=== PATIENT | male | born 1955 | race Caucasian/White ===

== ENCOUNTER 2018-03-05 15:30 | Observation (INO) ==
[2018-03-05] MEDS ORDERED: Naloxone 0.4 MG/ML INJ IVP PRN (19:36)
[2018-03-05] MEDS ORDERED: Ondansetron 4 MG/2 ML VIAL IVP PRN (19:36)
[2018-03-05] MEDS ORDERED: *HR* HYDROcodone/Acet 5/325 mg TABLET PO PRN (19:36)
[2018-03-05] MEDS ORDERED: Acetaminophen 325 MG TABLET PO PRN (19:36)
--- NOTE | 2018-03-05 20:40 | Internal Med History&Physical ---
Date of Encounter: 03/05/18 Time of Encounter: 23:00 Internal Medicine - H&P: HPI Chief complaint: Right flank pain History of present illness: Mr. Sparrow is a 62 year old male with past medical history of CLL and history of thyroid cancer who initially presented to [facility] after he awoke this morning around 10 AM with right lower back pain. Patient underwent CT imaging which found a 6 mm calculus in the right upper ureter causing moderate hydronephrosis. Patient did not have any evidence of fever, chills, hematuria upon presentation and was hemodynamically stable. At the time of presentation was pain described as a 2-3 out of 10. Patient is currently stable and continues to endorse right lower flank pain of 2-3 out of 10 in intensity that is nonradiating. Laboratory findings were significant for mild elevation in his creatinine and an elevated white blood cell count in the setting of CLL. Past Med Surg Social Fam HX - Past Medical History Medical history: hypertension, kidney stones Additional medical history: hypothyroidism Psychiatric history: no psych history - Past Surgical History Surgical History: thyroidectomy - Social History Smoking Status: Never smoker Smokeless Tobacco Status: No Alcohol use: none Drug use: none - Family History Mother Living Status: Age at : 88 Hx Family Cardiac Disorders: Yes (unknown etiology) Hx Family Neuromuscular Disorders: Yes (2 CVAs) Father Living Status: Age at : 90 Hx Family Cardiac Disorders: Yes (unknown etiology) Internal Medicine - H&P: Meds Levothyroxine [Levothyroxine Sodium] 137 mcg PO DAILY@0630 10/07/16 [History] Folic Acid 1 mg PO DAILY #90 tablet 04/01/17 [Rx] Aspirin/Acetaminophen/Caffeine [Excedrin Extra Strength Caplet] 2 tab PO Q12H PRN 03/06/18 [History] 3 Allergy/AdvReac Type Severity Reaction Status Date / Time No Known Allergies Allergy Verified 03/06/18 10:18 All Systems PM: A 10-system review of systems was performed and is negative for pertinent findings except as documented above in the HPI. - Constitutional Constitutional: no chills, no fever(s), no night sweats - Constitutional Exam: General: Alert and oriented Skin:Normal color, no rash, no lesions. HEENT:EOM, pupils equal, round and reactive. Cardiovascular:Normal S1 & S2, no rubs, murmurs or gallops. No JVD. Pulse regular. Lungs:Normal breath sounds, no wheezes or crackles. Abdomen:Soft, non-tender, no rigidity. Extremities:No deformity, no edema or tenderness, no joint swelling or clubbing. Neurological:Normal cognition and motor skills. Pulses:Carotid and radial pulses normal +2. Rest of the physical exam is non contributory Internal Med - H&P Results - Labs CBC & Chem 7: 03/07/18 05:24 03/07/18 05:24 - Assessment and plan (1) Nephrolithiasis Current Visit: Yes Status: Acute Assessment and plan: Nephrolithiasis with a 6 mm calculus in the upper right ureter with moderate hydronephrosis. Patient currently stable without any signs of infectious complication. Currently reporting only minimal pain. Will start patient on pain regimen as needed. IV fluid hydration. Low-dose amlodipine in the setting of mild hypertension which will hopefully aid in the stone passing. Monitor vitals for any emergent signs of infection. Strainer to be provided for patient for urination. Urology consult in the a.m. Consult has not been called however the order has been placed. (2) Leukocytosis Current Visit: Yes Status: Chronic Assessment and plan: Leukocytosis of 26.5 documented at [facility]. Likely secondary to underlying CML. We will monitor for signs of sepsis and check a.m. labs. Qualifiers: Leukocytosis type: unspecified Qualified Code(s): D72.829 - Elevated white blood cell count, unspecified (3) ZELALEM (acute kidney injury) Current Visit: Yes Status: Acute Assessment and plan: Acute kidney injury likely obstructive in the setting of nephrolithiasis with moderate hydronephrosis. We will begin patient on fluids and check a.m. chemistry. (4) Hypothyroidism (acquired) Current Visit: No Status: Chronic Assessment and plan: Hypothyroidism in the setting of history of thyroid cancer status post radioactive iodine ablation. Continue patient's home med of levothyroxine. (5) CLL (chronic lymphocytic leukemia) Current Visit: No Status: Chronic Assessment and plan: Patient being managed by oncology as outpatient. - Time Spent With Patient Total time spent is greater than 50% in coordination of care (as documented) at patient's floor/unit and/or counseling patient: - Constitutional Vitals: Temp Pulse Resp BP Pulse Ox 98.4 F 41 16 147/72 98 03/05/18 18:16 03/05/18 18:16 03/05/18 18:16 03/05/18 18:16 03/05/18 18:16 General: Alert and oriented Skin:Normal color, no rash, no lesions. HEENT:EOM, pupils equal, round and reactive. Cardiovascular:Normal S1 & S2, no rubs, murmurs or gallops. No JVD. Pulse regular. Lungs:Normal breath sounds, no wheezes or crackles. Abdomen:Soft, non-tender, no rigidity; No CVA tenderness Extremities:No deformity, no edema or tenderness, no joint swelling or clubbing. Neurological:Normal cognition and motor skills. Pulses:Carotid and radial pulses normal +2. Rest of the physical exam is non contributory
[2018-03-05] MEDS: amLODIPine 5 MG TABLET PO SCH (21:28)
[2018-03-05] MEDS: 0.9 % Sodium Chloride 1,000 ML IVC SCH (21:29)
[2018-03-05] MEDS: *HR* Heparin 5,000 UNIT/ML VIAL SQ SCH (21:29)
[2018-03-06 04:23] LABS: Mean Corpuscular Hemoglobin 32.7 pg (28.0-33.3); Mean Platelet Volume 11.9 fL (9.4-12.4)
[2018-03-06 04:24] LABS: Hematocrit 35.9 % (37.5-50.1); Mean Corpuscular HGB Conc 33.4 g/dL (31.6-35.5); Mean Corpuscular Volume 97.8 fL (83.0-100.0); Red Blood Count 3.67 M/mcL (4.19-5.50)
[2018-03-06 04:28] LABS: Platelet Count 79 K/mcL (140-400)
[2018-03-06 04:45] LABS: Albumin 3.5 g/dL (3.5-5.7); Albumin/Globulin Ratio 1.8 (1.1-2.2); Bilirubin,Total 0.6 mg/dL (0.3-1.0); Calcium 8.2 mg/dL (8.6-10.3); Globulin 1.9 g/dL (2.4-3.5); Potassium 4.2 mEq/L (3.5-5.1); Total Protein 5.4 g/dL (6.4-8.9)
[2018-03-06] MEDS: *HR* Heparin 5,000 UNIT/ML VIAL SQ SCH ×3 (06:07→21:19)
--- NOTE | 2018-03-06 07:38 | Urology - Consult Note ---
Date of Encounter: 03/06/18 Time of Encounter: 07:35 - Assessment and Plan (1) Ureteral stone with hydronephrosis Current Visit: Yes Status: Acute Assessment and plan: pt has a proximal ureteral stone. low likelihood chance to pass the stone. will proceed with attempt at a ureteroscopic stone extraction with holmium laser today. he understands the risk of the procedure including injury to urinary tract, perforation, stricture, infection, inability to reach the stone which would require a staged surgery. (2) ZELALEM (acute kidney injury) Current Visit: Yes Status: Acute Assessment and plan: should improve with management of the stone WBC is elevated but his baseline is in the 20s bc of leukemia. I do not believe pt is septic. Urology CN:HPI Consult date: 03/06/18 Reason for consult Urology: Hydronephrosis History of present illness: new pt to the urology service. 6 mm proximal ureteral stone with mild hydronephrosis. states pain is 3/4 out of 10. no N/V. no fever. distant hx of stones. pt has hx of leukemia. WBC chronically elevated. WBC 25,000 at outside ER. Cr 1.5 Past Med Surg Social Fam HX - Past Medical History Medical history: hypertension, kidney stones Additional medical history: hypothyroidism Psychiatric history: no psych history - Past Surgical History Surgical History: thyroidectomy - Social History Smoking Status: Never smoker Smokeless Tobacco Status: No Alcohol use: none Drug use: none - Family History Mother Living Status: Age at : 88 Hx Family Cardiac Disorders: Yes (unknown etiology) Hx Family Neuromuscular Disorders: Yes (2 CVAs) Father Living Status: Age at : 90 Hx Family Cardiac Disorders: Yes (unknown etiology) Medications and Allergies Aspirin/Acetaminophen/Caffeine [Excedrin Migraine Caplet] 1 tab PO Q12H PRN 07/02 [History] Levothyroxine [Levothyroxine Sodium] 137 mcg PO DAILY@0630 10/07/16 [History] Folic Acid 1 mg PO DAILY #90 tablet 04/01/17 [Rx] 3 Allergy/AdvReac Type Severity Reaction Status Date / Time No Known Allergies Allergy Verified 10/31/17 12:15 Review of Systems - Constitutional no chills, no fever(s) - EENT Nose, mouth and throat: no dizziness - Cardiovascular no chest pain - Respiratory no cough - Gastrointestinal abdominal pain, no nausea - Genitourinary flank pain - Musculoskeletal back pain - Integumentary no erythema - Neurological no confusion - Psychiatric no anxiety - Hematologic/Lymphatic no easy bleeding - Allergic/Immunologic no throat swelling Exam Initial Vital Signs Temp Pulse Resp BP Pulse Ox 98.2 F 45 16 135/65 98 03/05/18 18:06 03/05/18 18:06 03/05/18 18:06 03/05/18 18:06 03/05/18 18:06 - General physical appearance Present: well developed, no distress - Eyes Present: PERRL, conjunctiva is clear. Absent: icteric - ENT Present: normal nares - Neck Present: no masses - Respiratory Present: normal respiratory effort - Cardiovascular Cardiovascular exam IM: RRR - Abdomen Abdomen: Present: soft. Absent: masses, suprapubic tenderness - Integumentary Present: no rash, no growths - Neurologic Present: normal coordination. Absent: disoriented, confused - Additional Findings flat affect. no CVA tenderness Urology Results - Labs 03/06/18 03:58 03/06/18 03:58 Abnormal lab results WBC 35.2 K/mcL (4.3-11.1) H* 03/06/18 03:58 RBC 3.67 M/mcL (4.19-5.50) L 03/06/18 03:58 Hgb 12.0 g/dL (12.9-16.9) L 03/06/18 03:58 Hct 35.9 % (37.5-50.1) L 03/06/18 03:58 RDW 15.0 % (11.5-14.5) H 03/06/18 03:58 Plt Count 79 K/mcL (140-400) L 03/06/18 03:58 Chloride 112 mEq/L (98-107) H 03/06/18 03:58 Creatinine 1.69 mg/dL (0.70-1.30) H 03/06/18 03:58 Est GFR ( Amer) 50 (> 60) L 03/06/18 03:58 Est GFR (Non-Af Amer) 41 (> 60) L 03/06/18 03:58 Calcium 8.2 mg/dL (8.6-10.3) L 03/06/18 03:58 Serum Total Protein 5.4 g/dL (6.4-8.9) L 03/06/18 03:58 Globulin 1.9 g/dL (2.4-3.5) L 03/06/18 03:58 Diabetes panel 03/06/18 Range/Units 03:58 Sodium 140 (136-145) mEq/L Potassium 4.2 (3.5-5.1) mEq/L Chloride 112 H (98-107) mEq/L Carbon Dioxide 24 (23-29) mEq/L BUN 22 (8-23) mg/dL Creatinine 1.69 H (0.70-1.30) mg/dL Glucose 97 (70-105) mg/dL Calcium 8.2 L (8.6-10.3) mg/dL AST 23 (13-39) Units/L ALT 23 (7-52) Units/L Alkaline Phosphatase 69 (34-104) Units/L Albumin 3.5 (3.5-5.7) g/dL Calcium panel 03/06/18 Range/Units 03:58 Calcium 8.2 L (8.6-10.3) mg/dL Albumin 3.5 (3.5-5.7) g/dL Pituitary panel 03/06/18 Range/Units 03:58 Sodium 140 (136-145) mEq/L Potassium 4.2 (3.5-5.1) mEq/L Chloride 112 H (98-107) mEq/L Carbon Dioxide 24 (23-29) mEq/L BUN 22 (8-23) mg/dL Creatinine 1.69 H (0.70-1.30) mg/dL Glucose 97 (70-105) mg/dL Calcium 8.2 L (8.6-10.3) mg/dL Adrenal panel 03/06/18 Range/Units 03:58 Sodium 140 (136-145) mEq/L Potassium 4.2 (3.5-5.1) mEq/L Chloride 112 H (98-107) mEq/L Carbon Dioxide 24 (23-29) mEq/L BUN 22 (8-23) mg/dL Creatinine 1.69 H (0.70-1.30) mg/dL Glucose 97 (70-105) mg/dL Calcium 8.2 L (8.6-10.3) mg/dL Total Bilirubin 0.6 (0.3-1.0) mg/dL AST 23 (13-39) Units/L ALT 23 (7-52) Units/L Alkaline Phosphatase 69 (34-104) Units/L Albumin 3.5 (3.5-5.7) g/dL All other labs normal. Consult Discharge Plan - Plan Referrals: Kalen Hart DO [Primary Care Provider] -
[2018-03-06] MEDS: amLODIPine 5 MG TABLET PO SCH (07:41)
[2018-03-06] MEDS: 0.9 % Sodium Chloride 1,000 ML IVC SCH (07:42)
[2018-03-06] MEDS ORDERED: Folic Acid 1 MG TABLET PO SCH (09:00)
--- NOTE | 2018-03-06 12:41 | Event Note ---
Date of Encounter: 03/06/18 Time of Encounter: 12:40 Patient seen in holding. consent reviewed. to Or today for right ureteroscopic stone extraction.
--- NOTE | 2018-03-06 12:53 | Anesthesia Evaluation PreOp ---
Date of Encounter: 03/06/18 Time of Encounter: 12:53 - Past History Planned Operation: R ureteral stone extraction Cardiac History: Denies any Significant Hx Pulmonary History: Other (hypothyroid) ASSOCIATE ACCOUNT MANAGER History: Denies Any Significant HX Other Medical History: Renal (ZELALEM R ureteral stone) Anesthesia History: No Prior Anesthetic Complications, Past Anesthesia Alcohol Use: none Drug use: none Medications and Allergies Levothyroxine [Levothyroxine Sodium] 137 mcg PO DAILY@0630 10/07/16 [History] Folic Acid 1 mg PO DAILY #90 tablet 04/01/17 [Rx] Aspirin/Acetaminophen/Caffeine [Excedrin Extra Strength Caplet] 2 tab PO Q12H PRN 03/06/18 [History] 3 Allergy/AdvReac Type Severity Reaction Status Date / Time No Known Allergies Allergy Verified 03/06/18 10:18 - Meds/Allergy Pre-op Review Medications Reviewed: Yes Allergies Reviewed: Yes Beta Blockers on Current Med List: No Anesthesia Results - Labs 03/06/18 03:58 03/06/18 03:58 Anesthesia Exam Vital Signs/O2 Sat/Glucose, Most Recent Temp Pulse Resp BP Pulse Ox 98.3 F 52 15 121/67 98 03/06/18 11:37 03/06/18 11:37 03/06/18 11:37 03/06/18 11:37 03/06/18 11:37 Blood Glucose* 87 Height: 1.78 Weight: 82kg NPO (# of Hours): > 8 hr - HEENT Pupil (Motor): Pupils equal Mallampati: III Teeth: Normal Oral Opening: Greater than 3 - ASSOCIATE ACCOUNT MANAGER LOC: Oriented ASSOCIATE ACCOUNT MANAGER Motor: Normal RUE, Normal LUE, Normal RLE, Normal LLE, Normal Face ASSOCIATE ACCOUNT MANAGER Sensory: Normal: RUE, LUE, RLE, LLE, Face - Cardiac Rhythm: Regular Murmur: None - Pulmonary Breath Sounds: bilateral Clear Respiratory Effort: Symmetrical Anesthesia Assess/Plan ASA Score: 2 Modified Vince Scale for Level of Consciousness: Cooperative, oriented, and tranquil Anesthetic Plan: General Monitoring Plan: Standard Monitors Recovery Plan: PACU
[2018-03-06] MEDS ORDERED: Dexamethasone 4 MG/ML VIAL ONE (12:54)
[2018-03-06] MEDS ORDERED: Ondansetron 4 MG/2 ML VIAL ONE (12:54)
[2018-03-06] MEDS ORDERED: Lidocaine -MPF 2% 2 ML VIAL ONE (12:54)
[2018-03-06] MEDS ORDERED: *HR* FentaNYL (PF) 100 MCG/2 ML VIAL ONE (12:55)
[2018-03-06] MEDS ORDERED: *HR* Midazolam HCl 2 MG/2 ML VIAL ONE (12:55)
[2018-03-06] MEDS ORDERED: *HR* Propofol 200 MG/20 ML VIAL IVP ONE (12:56)
[2018-03-06] MEDS ORDERED: *HR* Promethazine 25 MG/ML VIAL IVP PRN (13:37)
[2018-03-06] MEDS ORDERED: Naloxone 0.4 MG/ML INJ IVP PRN ×2 (13:37→15:29)
[2018-03-06] MEDS ORDERED: *HR* FentaNYL (PF) 100 MCG/2 ML VIAL IVP PRN (13:37)
[2018-03-06] MEDS ORDERED: *HR* OxyCODONE Immed Rel 5 MG TABLET PO PRN (13:37)
[2018-03-06] MEDS ORDERED: Ondansetron 4 MG/2 ML VIAL IVP ONE (13:37)
[2018-03-06] MEDS ORDERED: Ringers Solution, Lactated 1,000 ML IVC SCH (13:45)
--- NOTE | 2018-03-06 13:55 | Operative Note ---
Date of procedure: 03/06/18 Pre-op diagnosis: right proximal ureteral stone Post-op diagnosis: same Procedure: Right ureteroscopic laser lithotripsy of stone, right 4.8 x 26 cm ureteral stent placement Anesthesia: GETA Surgeon: Gregorio Treadwell Was there an speech pathologist assistant present: No Estimated blood loss (cc): 0 Specimen: none Condition: stable Disposition: PACU Procedure in Detail: Patient was prepped and draped in normal sterile fashion. Timeout procedure performed. I then inserted the semirigid ureteroscope into the patient's urethra and advanced into the bladder. I was able to cannulate the right ureteral orifice. I was unable to advance the scope any further. At this point , I removed the scope and then proceeded to dilate the distal ureter using 8/10 dilation sheath. I then placed the scope back into the patient's urethra was advanced up to the proximal ureter where I could visualize the site of prior impaction but no stone was seen. The scope was then placed into the renal pelvis but I was unable to see the stone. At this point I then attempted to place a 11 x 13 x 46 cm access sheath into the right kidney but I could not advance this past the distal ureter. I then placed the flexible ureteroscope over the wire into the right kidney. I encountered the larger stone and smaller 2 mm stone. I used the holmium laser fragment each stone into dust size fragments. I did not feel comfortable trying to basket retrieve the stone fragments secondary to the narrow distal ureter. I then placed a 4.8 x 26 cm stent with good curl seen in the right kidney and in the bladder. Bladder was drained and procedure was ended. Strings were left for easy removal in 2-3 days. Okay for patient to be discharged tonight or tomorrow per urology. Patient can remove his own stent in 2-3 days. He needs to follow up with our practice in 2- 3 weeks.
--- NOTE | 2018-03-06 14:26 | Anesthesia Evaluation Post Op ---
Date of Encounter: 03/06/18 Time of Encounter: 14:25 - Vital Signs Vital Signs: Vital Signs/O2 Sat, Most Current Temp Pulse Resp BP Pulse Ox 97.8 F 64 16 135/77 96 03/06/18 13:59 03/06/18 14:19 03/06/18 14:19 03/06/18 14:19 03/06/18 14:19 - Lungs Lungs: Clear Ascult./Percussion - Airway Airway: Non-obstructed - Cardiovascular Regular Rate - Mental Status Mental Status: Alert & Oriented, Answers Appropriately - Pain Pain Scale: 0 - Nausea Vomiting Nausea Vomiting: Not Present - Hydration Hydration: NPO - Discharge PostOp Status: Transfer Patient to floor Attestation: I have assessed this patient and find they meet discharge criteria.
[2018-03-06] MEDS ORDERED: *HR* HYDROcodone/Acet 5/325 mg TABLET PO PRN (15:29)
[2018-03-06] MEDS ORDERED: Ondansetron 4 MG/2 ML VIAL IVP PRN (15:29)
[2018-03-06] MEDS ORDERED: Acetaminophen 325 MG TABLET PO PRN (15:29)
[2018-03-06] MEDS ORDERED: 0.9 % Sodium Chloride 1,000 ML ONE (16:01)
[2018-03-06] MEDS ORDERED: 0.9 % Sodium Chloride 1,000 ML IVC SCH (16:45)
[2018-03-06 17:27] LABS: Bilirubin,Urine Negative (Negative); Blood,Urine Large (Negative); Color,Urine Red (Yellow); Glucose,Urine (UA) Normal (Normal); Ketones,Urine Negative (Negative); Leukocyte Esterase,Urine Trace (Negative); Nitrite,Urine Negative (Negative); PH,Urine 6.5 pH Units (5.0-8.0); Protein,Urine 100 mg/dL (Neg-Trace); Specific Gravity,Urine < 1.005 (1.010-1.025); Urobilinogen,Urine Normal (Normal)
[2018-03-06 17:29] LABS: Clarity,Urine Hazy (Clear)
--- NOTE | 2018-03-06 19:26 | Internal Med Progress Note ---
Hospitalist Progress Note - Encounter Date of Encounter: 03/06/18 Time of Encounter: 15:30 - Subjective Interval History: Patient is S/P lithotripsy and ureteral stent placement. He feels better but still has some mild flank pain. He denies any nausea or vomiting. He denies any preceding fevers or chills. His white blood cell count is elevated but he has CLL and has chronic leukocytosis per patient. He follows locally with [facility]. - Exam Vitals: Temp Pulse Resp BP Pulse Ox 97.9 F 66 16 119/67 96 03/06/18 19:15 03/06/18 19:15 03/06/18 19:15 03/06/18 19:15 03/06/18 19:15 Exam: General: NAD but he appears dry HEENT: dry mucosa; no icterus; PERRLA; EOMI; neck supple Chest: CTA B; No WRR; RRR; No MTR Abdomen: soft; NT; ND; No HSMG; + BS Back: mild right flank pain Ext: No CCE; No calf pain; full ROM Skin: Warm, dry, no rash - Assessment and Plan (1) Nephrolithiasis Current Visit: Yes Status: Acute Assessment and Plan: 1. S/P lithotripsy and stent placement. 2. IVF hydration. 3. Follow renal function. (2) Leukocytosis Current Visit: Yes Status: Chronic Assessment and Plan: 1. Likely due to CLL, but I still worry about infection/complicated UTI. 2. I ordered U/A with C&S and blood cultures. 3. Will start on IV Rocephin after above cultures. 4. Will trend CBC and consult HEM/ONC if necessary. (3) CLL (chronic lymphocytic leukemia) Current Visit: No Status: Chronic Assessment and Plan: 1. Outpatient HEM/ONC follow up unless acute intervention necessary -- then will consult inpatient. (4) Hypothyroidism (acquired) Current Visit: No Status: Chronic Assessment and Plan: 1. Continue home Synthroid dosing. (5) ZELALEM (acute kidney injury) Current Visit: Yes Status: Acute Assessment and Plan: 1. IVF hydration and trend renal function. 2. Consult nephrology if fails to improve with above. 3. S/P urologic intervention as above. Internal Medicine: Result - Labs CBC & Chem 7: 03/06/18 03:58 03/06/18 03:58 Labs: Short CBC 03/06/18 Range/Units 03:58 WBC 35.2 H* (4.3-11.1) K/mcL Hgb 12.0 L (12.9-16.9) g/dL Hct 35.9 L (37.5-50.1) % Plt Count 79 L (140-400) K/mcL BMP 03/06/18 03:58 Sodium 140 Potassium 4.2 Chloride 112 H Carbon Dioxide 24 BUN 22 Creatinine 1.69 H Glucose 97 Calcium 8.2 L Liver Function 03/06/18 Range/Units 03:58 Total Bilirubin 0.6 (0.3-1.0) mg/dL AST 23 (13-39) Units/L ALT 23 (7-52) Units/L Alkaline Phosphatase 69 (34-104) Units/L Albumin 3.5 (3.5-5.7) g/dL Urine 03/06/18 Range/Units 15:57 Urine Color Red A (Yellow) Urine Clarity Hazy (Clear) Urine pH 6.5 (5.0-8.0) pH Units Ur Specific [place] < 1.005 L (1.010-1.025) Urine Protein 100 H (Neg-Trace) mg/dL Urine Glucose (UA) Normal (Normal) mg/dL - Impressions Impressions Fluoroscopy 03/06/18 13:25 IMPRESSION: Intraprocedural fluoroscopic spot images as above. See separate procedure report for more information. D/ / Gavin Schaeffer MD / Gavin Schaeffer MD Interpreting Provider: Gavin Schaeffer MD X-Ray 03/06/18 13:25 IMPRESSION: Intraprocedural fluoroscopic spot images as above. See separate procedure report for more information. D/ / Gavin Schaeffer MD / Gavin Schaeffer MD Interpreting Provider: Gavin Schaeffer MD - VTE Documentation of Mechanical Device: Intermittent pneumatic compression device Consult Discharge Plan - Plan Referrals: Gregorio Treadwell MD [Partnered Physician] - Kalen Hart DO [Primary Care Provider] - (2) Leukocytosis Qualifiers: Leukocytosis type: unspecified Qualified Code(s): D72.829 - Elevated white blood cell count, unspecified
[2018-03-06] MEDS: cefTRIAXone 2,000 MG in Water for inj. (sterile) 20 ML 20 ML IVP SCH (21:19)
[2018-03-07] MEDS: 0.9 % Sodium Chloride 1,000 ML IVC SCH ×2 (01:27→17:55)
[2018-03-07] MEDS: *HR* Heparin 5,000 UNIT/ML VIAL SQ SCH ×3 (05:29→21:52)
[2018-03-07 05:44] LABS: Eosinophils % 0.4 %; Immature Granulocytes % 0.2 % (0-4); Red Cell Distribution Width 15.2 % (11.5-14.5)
[2018-03-07 05:46] LABS: Basophils % 0.1 %; Eosinophils # 0.1 K/mcL (0.0-0.6); Hematocrit 38.4 % (37.5-50.1); Hemoglobin 12.8 g/dL (12.9-16.9); Lymphocytes # 12.8 K/mcL (0.6-4.6); Lymphocytes % 45.5 %; Mean Corpuscular HGB Conc 33.3 g/dL (31.6-35.5); Mean Corpuscular Hemoglobin 32.7 pg (28.0-33.3); Mean Corpuscular Volume 98.2 fL (83.0-100.0); Mean Platelet Volume 11.9 fL (9.4-12.4); Monocytes # 9.4 K/mcL (0.0-1.3); Monocytes % 33.4 %; Neutrophils # 5.7 K/mcL (1.6-8.9); Nucleated Red Blood Cells 0.1 /100 WBC (0); Red Blood Count 3.91 M/mcL (4.19-5.50); Segmented Neutrophils % 20.4 %
[2018-03-07 05:48] LABS: Platelet Count 86 K/mcL (140-400)
[2018-03-07 06:04] LABS: Platelet Estimate Decreased (Normal); Smudge Cells Present (Not Present)
[2018-03-07 06:15] LABS: Alanine Aminotransferase 19 Units/L (7-52); Albumin 3.7 g/dL (3.5-5.7); Albumin/Globulin Ratio 1.9 (1.1-2.2); Alkaline Phosphatase 71 Units/L (34-104); Aspartate Amino Transferase 17 Units/L (13-39); BUN/Creatinine Ratio 15 (6-26); Bilirubin,Total 0.3 mg/dL (0.3-1.0); Blood Urea Nitrogen 19 mg/dL (8-23); Calcium 8.1 mg/dL (8.6-10.3); Carbon Dioxide 21 mEq/L (23-29); Chloride 111 mEq/L (98-107); Glucose 167 mg/dL (70-105); Magnesium 2.1 mg/dL (1.6-2.6); Osmolality,Calculated 296 (280-300); Potassium 4.2 mEq/L (3.5-5.1); Sodium 140 mEq/L (136-145); Total Protein 5.7 g/dL (6.4-8.9); eGFR For Non-African Americans 58 (> 60)
--- NOTE | 2018-03-07 08:59 | Urology Progress Note ---
Date of Encounter: 03/07/18 Time of Encounter: 08:56 - Assessment and Plan (1) Ureteral stone with hydronephrosis Current Visit: Yes Status: Acute Assessment and plan: Patient is a 62 year old male 1 day status post right ureteroscopic laser lithotripsy of stone and right 4.8 x 26 cm ureteral stent placement. Patient is feeling well with no new concerns. WBC is trending down. Patient is afebrile and vital signs are stable and reassuring. I explained his postoperative course is typical after stone extraction. I will discuss discharge plan with Dr. Treadwell. Progress Note Subjective: no new complaints, pain is less, voiding w/o difficulty Narrative: Patient is one day status post right ureteroscopic laser lithotripsy of stone and right 4.8 x 26 cm ureteral stent placement. Patient is sitting upright in bed eating breakfast. Patient states he has not taken any pain medication but now feels the need for oral pain medication. Patient states he is experiencing irritating voiding symptoms and has noticed mild hematuria. Denies significant pain, chest pain, dyspnea, fever, chills. Objective Initial Vital Signs Temp Pulse Resp BP Pulse Ox 98.2 F 45 16 135/65 98 03/05/18 18:06 03/05/18 18:06 03/05/18 18:06 03/05/18 18:06 03/05/18 18:06 - General physical appearance Present: well developed, well nourished, no distress - Respiratory Present: normal expansion, normal respiratory effort - Abdomen Present: soft, non tender - Integumentary Present: no rash, no abnormal pigmentation - Musculoskeletal Present: normal posture - Psychiatric Present: oriented to time, oriented to person, oriented to place, speech is normal - Labs 03/07/18 05:24 03/07/18 05:24 Diabetes panel 03/07/18 Range/Units 05:24 Sodium 140 (136-145) mEq/L Potassium 4.2 (3.5-5.1) mEq/L Chloride 111 H (98-107) mEq/L Carbon Dioxide 21 L (23-29) mEq/L BUN 19 (8-23) mg/dL Creatinine 1.26 (0.70-1.30) mg/dL Glucose 167 H (70-105) mg/dL Calcium 8.1 L (8.6-10.3) mg/dL AST 17 (13-39) Units/L ALT 19 (7-52) Units/L Alkaline Phosphatase 71 (34-104) Units/L Albumin 3.7 (3.5-5.7) g/dL Calcium panel 03/07/18 Range/Units 05:24 Calcium 8.1 L (8.6-10.3) mg/dL Albumin 3.7 (3.5-5.7) g/dL Pituitary panel 03/07/18 Range/Units 05:24 Sodium 140 (136-145) mEq/L Potassium 4.2 (3.5-5.1) mEq/L Chloride 111 H (98-107) mEq/L Carbon Dioxide 21 L (23-29) mEq/L BUN 19 (8-23) mg/dL Creatinine 1.26 (0.70-1.30) mg/dL Glucose 167 H (70-105) mg/dL Calcium 8.1 L (8.6-10.3) mg/dL Adrenal panel 03/07/18 Range/Units 05:24 Sodium 140 (136-145) mEq/L Potassium 4.2 (3.5-5.1) mEq/L Chloride 111 H (98-107) mEq/L Carbon Dioxide 21 L (23-29) mEq/L BUN 19 (8-23) mg/dL Creatinine 1.26 (0.70-1.30) mg/dL Glucose 167 H (70-105) mg/dL Calcium 8.1 L (8.6-10.3) mg/dL Total Bilirubin 0.3 (0.3-1.0) mg/dL AST 17 (13-39) Units/L ALT 19 (7-52) Units/L Alkaline Phosphatase 71 (34-104) Units/L Albumin 3.7 (3.5-5.7) g/dL - VTE Documentation of Mechanical Device: Intermittent pneumatic compression device Consult Discharge Plan - Plan Referrals: Gregorio Treadwell MD [Partnered Physician] - Kalen Hart DO [Primary Care Provider] -
--- NOTE | 2018-03-07 09:09 | Internal Med Progress Note ---
Hospitalist Progress Note - Encounter Date of Encounter: 03/07/18 Time of Encounter: 09:07 - Subjective Interval History: Patient with history of CLL, hypertension, kidney stones in the past, admitted with right flank pain diagnosed with right renal stone with moderate hydronephrosis on the right patient underwent lithotripsy with stent placement. Today patient is doing well appears comfortable some blood in the urine which is expected no fever or chills his white count 35,000 came down to 28,000 the patient has known CLL. he will follow up by oncologist an outpatient. - Exam Vitals: Temp Pulse Resp BP Pulse Ox 97.8 F 52 17 137/67 100 03/07/18 06:59 03/07/18 06:59 03/07/18 06:59 03/07/18 06:59 03/07/18 06:59 Exam: General: NAD but he appears dry HEENT: dry mucosa; no icterus; PERRLA; EOMI; neck supple Chest: CTA B; No WRR; RRR; No MTR Abdomen: soft; NT; ND; No HSMG; + BS Back: mild right flank pain Ext: No CCE; No calf pain; full ROM Skin: Warm, dry, no rash - Assessment and Plan (1) CLL (chronic lymphocytic leukemia) Current Visit: No Status: Chronic Assessment and Plan: CLL follow with oncology (2) Nephrolithiasis Current Visit: Yes Status: Acute Assessment and Plan: s/p lithotripsy and stent placement no complication (3) Leukocytosis Current Visit: Yes Status: Chronic Assessment and Plan: likley due to CLL (4) Ureteral stone with hydronephrosis Current Visit: Yes Status: Acute Assessment and Plan: resolving underwent lithotripsy and stent placement - Time Spent with Patient Total time spent is greater than 50% in coordination of care (as documented) at patient's floor/unit and/or counseling patient: Internal Medicine: Result - Labs CBC & Chem 7: 03/07/18 05:24 03/07/18 05:24 Labs: Short CBC 03/07/18 Range/Units 05:24 WBC 28.1 H (4.3-11.1) K/mcL Hgb 12.8 L (12.9-16.9) g/dL Hct 38.4 (37.5-50.1) % Plt Count 86 L (140-400) K/mcL Neutrophils # 5.7 (1.6-8.9) K/mcL BMP 03/07/18 05:24 Sodium 140 Potassium 4.2 Chloride 111 H Carbon Dioxide 21 L BUN 19 Creatinine 1.26 Glucose 167 H Calcium 8.1 L Liver Function 03/07/18 Range/Units 05:24 Total Bilirubin 0.3 (0.3-1.0) mg/dL AST 17 (13-39) Units/L ALT 19 (7-52) Units/L Alkaline Phosphatase 71 (34-104) Units/L Albumin 3.7 (3.5-5.7) g/dL Urine 03/06/18 Range/Units 15:57 Urine Color Red A (Yellow) Urine Clarity Hazy (Clear) Urine pH 6.5 (5.0-8.0) pH Units Ur Specific [place] < 1.005 L (1.010-1.025) Urine Protein 100 H (Neg-Trace) mg/dL Urine Glucose (UA) Normal (Normal) mg/dL - Impressions Impressions Fluoroscopy 03/06/18 13:25 IMPRESSION: Intraprocedural fluoroscopic spot images as above. See separate procedure report for more information. D/ / Gavin Schaeffer MD / Gavin Schaeffer MD Interpreting Provider: Gavin Schaeffer MD X-Ray 03/06/18 13:25 IMPRESSION: Intraprocedural fluoroscopic spot images as above. See separate procedure report for more information. D/ / Gavin Schaeffer MD / Gavin Schaeffer MD Interpreting Provider: Gavin Schaeffer MD - VTE Documentation of Mechanical Device: Intermittent pneumatic compression device Consult Discharge Plan - Plan Referrals: Gregorio Treadwell MD [Partnered Physician] - Kalen Hart DO [Primary Care Provider] - (3) Leukocytosis Qualifiers: Leukocytosis type: unspecified Qualified Code(s): D72.829 - Elevated white blood cell count, unspecified
[2018-03-07] MEDS: Folic Acid 1 MG TABLET PO SCH (09:14)
[2018-03-07] MEDS: amLODIPine 5 MG TABLET PO SCH (09:14)
[2018-03-07] MEDS: cefTRIAXone 2,000 MG in Water for inj. (sterile) 20 ML 20 ML IVP SCH (21:54)
[2018-03-08] MEDS: 0.9 % Sodium Chloride 1,000 ML IVC SCH ×2 (00:36→06:55)
[2018-03-08] MEDS: *HR* Heparin 5,000 UNIT/ML VIAL SQ SCH ×2 (06:56→15:24)
[2018-03-08] MEDS: Folic Acid 1 MG TABLET PO SCH (08:50)
[2018-03-08] MEDS: amLODIPine 5 MG TABLET PO SCH (08:50)
[2018-03-08 14:06] VITALS: BP 146/74
--- NOTE | 2018-03-08 15:54 | Discharge Summary ---
Orders not resulted at time of discharge: Pending orders 03/06/18 19:47 Culture,Blood [] Stat Date of Encounter: 03/08/18 Time of Encounter: 15:51 - Discharge Diagnosis (1) Ureteral stone with hydronephrosis Priority: Primary Status: Acute (2) ZELALEM (acute kidney injury) Priority: Primary Status: Acute (3) Nephrolithiasis Priority: Primary Status: Chronic (4) HTN (hypertension) Priority: Secondary Status: Chronic Qualifiers: Hypertension type: essential hypertension Qualified Code(s): I10 - Essential (primary) hypertension (5) Leukocytosis Priority: Secondary Status: Chronic Qualifiers: Leukocytosis type: unspecified Qualified Code(s): D72.829 - Elevated white blood cell count, unspecified (6) CLL (chronic lymphocytic leukemia) Priority: Secondary Status: Chronic (7) Hypothyroidism (acquired) Priority: Secondary Status: Chronic Hospital course: We admitted this 62-year-old man shortly after he had had developed her severe right flank pain. He was found to have right ureteral stone with hydronephrosis. Subsequently he underwent lithotripsy and stent insertion. He did well during and after the procedure. He is right flank pain is mild at discharge. Denies nausea and vomiting. One can see that he is a creatinine at admission was 1.69. It was 1.26 at discharge. One can see that his WBC count was 35.2 thousand at admission. It was at 28.1 thousand at discharge. The patient has underlying CLL. We found this patient to be hypertensive for. I decided to start him on amlodipine/benazepril. His last blood pressure check in the hospital was 146/ 74. CONDITION AT DISCHARGE: He feels good. His right flank pain is mild. He has normal appetite. He ambulates on his own. Skin: Free of rash and discoloration. Respiratory: Normal breath sounds with no crackles and wheezes bilaterally. CV: Heart is regular with no gallop or murmur. GI: Abdomen is flat and soft with no palpable mass or visceromegaly. Neuro exam: There is no focal deficits. Normal speech, swallowing and gait. SEE DISCHARGE ORDERS/MEDICATIONS.. The patient will be taking can amlodipine/benazepril. He will be taking Ceftin tablets for the next 7 days. He is to see urology in about 1 week. - Time Spent with Patient Total time spent providing and/or coordinating discharge services: Greater than 30 minutes (35 minutes) - Discharge Medications Prescriptions: Cefuroxime PO [Ceftin] 250 mg PO Q12HR 7 Days #14 tablet Amlodipine Besylate/Benazepril [Lotrel 5-20 mg Capsule] 1 each PO DAILY 30 Days #30 capsule Home Medications: Levothyroxine [Levothyroxine Sodium] 137 mcg PO DAILY@0630 10/07/16 [History] Folic Acid 1 mg PO DAILY #90 tablet 04/01/17 [Rx] Aspirin/Acetaminophen/Caffeine [Excedrin Extra Strength Caplet] 2 tab PO Q12H PRN 03/06/18 [History] Acetaminophen [Tylenol] 650 mg PO Q6H PRN tablet 03/08/18 [Rx] Amlodipine Besylate/Benazepril [Lotrel 5-20 mg Capsule] 1 each PO DAILY 30 Days #30 capsule 03/08/18 [Rx] Cefuroxime PO [Ceftin] 250 mg PO Q12HR 7 Days #14 tablet 03/08/18 [Rx] Allergies/Adverse Reactions: 3 Allergy/AdvReac Type Severity Reaction Status Date / Time No Known Allergies Allergy Verified 03/06/18 10:18 Date of admission: 03/05/18 17:37 Primary care physician: Kalen Hart DO Consults: 03/05/18 20:33 Consult to Urology [CONS] Routine Consulting Provider: Caridad Dupree Reason for Consult: 6 mm Right ureteral calculus Call Completed: No Discharging clinician: Alf Rosa Anticipated date of discharge: 03/08/18 - Constitutional Vitals: Temp Pulse Resp BP Pulse Ox 98.5 F 51 14 146/74 98 03/08/18 14:05 03/08/18 14:05 03/08/18 14:05 03/08/18 14:05 03/08/18 14:05 General appearance: Present: A&O X 3, no acute distress, answers questions appropriately Exam: xxx - Patient Status Disposition: Home, Self-Care Condition: Good Functional capacity at discharge: independent ambulation Overall status at discharge: patient is progressing back to baseline - Discharge Instructions Instructions: Cefuroxime (By mouth), Amlodipine (By mouth), Kidney Stones (DC) Follow Up With: Gregorio Treadwell MD [Partnered Physician] - (Office will call with appointment.) Kalen Hart DO [Primary Care Provider] - Forms: Inpatient Work/School Release Additional Instructions: FOLLOW-UP WITH UROLOGY - IN 6-7 DAYS EXCUSE FROM WORK: 03/06-03/12; RESUME WORK ON 03/13/2018. - Diet and Activity Activity: increase activity as tolerated Diet: advance to your usual diet - VTE Documentation of Mechanical Device: Intermittent pneumatic compression device
== END 2018-03-08 18:47 | disposition home or self-care (01) ==
LOC: 3ANU 17:37 → SUATTDRO 17:37 → INTOOBSV 17:37
PROVIDERS: ADMIT Internal Medicine; ATTEND Internal Medicine

== ENCOUNTER 2018-05-26 18:44 | Inpatient (IN) ==
[2018-05-26] MEDS ORDERED: Isovue-370 500 ML INFUS..BTL IV ONE ×2 (19:40→21:54)
--- NOTE | 2018-05-26 20:01 | Emergency Department Note ---
Disposition Clinical Impression: CLL (chronic lymphocytic leukemia), Abdominal lymphadenopathy, Bilateral hydronephrosis, Leukocytosis, Lung metastasis, Scrotal swelling, Penile swelling Disposition: Admitted As Inpatient Condition: Undetermined Forms: ED Satisfaction Letter, Work/School Release Time of Disposition: 22:13 General Adult HPI - General Chief complaint: ED Abdominal Pain Stated complaint: Abd pain Time Seen by Provider: 05/26/18 19:30 Source: patient Limitations: no limitations Nursing Notes Reviewed: Yes Vital Signs Reviewed: Yes - History of Present Illness HPI Narrative: Pt is a 63 year old male who presents to the emergency department for lower right sided groin pain over the past 4-5 days. Pt does not recall what he was doing at the time he noticed the pain but was concerned that it might be an enlarged lymph node due to his history of CLL. Pt has also noticed increased swelling around the penile shaft but denies any hematuria, polyuria, dysuria, trauma to the area, pain in the testicles, penile discharge, fevers, chills, bodyaches, headaches, nausea, vomiting, diarrhea, changes in bowel functioning or previous hernias. Otherwise pt denies taking anything for the pain to this point and denies palpating a mass in the area of concern. Pt has an appointment with his oncologist 05/29/18 to get an U/S of the area but was too concerned about the problem to wait until then. Onset (ago): day(s) Location: genitals Pain Scale: 2 Quality: aching Consistency: intermittent Improves with: nothing Worsens with: movement Associated symptoms: Denies: confusion, chest pain, cough, diaphoresis, fever/chills, headaches, loss of appetite, malaise, nausea/vomiting, rash Treatments Prior to Arrival: none - Related Data Home Medications Medication Instructions Recorded Confirmed Aspirin/Acetaminophen/Caffeine 2 tab PO Q12H PRN 03/06/18 05/02/18 [Excedrin Extra Strength Caplet] Previous Rx's Medication Instructions Recorded Folic Acid 1 mg PO DAILY #90 tablet 04/01/17 Levothyroxine [Synthroid] 150 mcg PO DAILY #90 tablet 05/02/18 Allergies Allergy/AdvReac Type Severity Reaction Status Date / Time No Known Allergies Allergy Verified 03/06/18 10:18 All systems ED: reviewed and negative except as stated. Review of Systems: As Per HPI Constitutional: Denies: fever, chills, weakness Cardiovascular: Denies: chest pain, palpitations, dyspnea on exertion Respiratory: Denies: cough, dyspnea Gastrointestinal: Denies: abdominal pain, nausea, vomiting, diarrhea, hem atemesis, melena, hematochezia Genitourinary: Reports: as per HPI. Denies: urgency, dysuria, frequency, hematuria, discharge, testicular pain, testicular mass, genital lesions Musculoskeletal: Denies: back pain, neck pain Integumentary: Denies: rash, abrasion, lesions Neurological: Denies: headache, weakness Psychiatric: Denies: anxiety, depression Endocrine: Denies: fatigue, heat or cold intolerance Past Medical History - Past Medical History Medical history: Reports: hypertension, kidney stones Surgical history: Reports: thyroidectomy Psychiatric history: Reports: no psych history - Social History Smoking Status: Never smoker Smokeless Tobacco Status: No Alcohol use: Reports: none Drug use: Reports: none Physical Exam - General Limitations: no limitations General appearance: alert, in no apparent distress - Head Head exam: atraumatic, normocephalic - Eye Eye exam: Present: normal appearance - Neck Neck exam: Present: lymphadenopathy (CLL ) - Chest Chest inspection: Present: normal inspection, symmetric chest wall rise - Respiratory Respiratory exam: Present: normal lung sounds bilaterally. Absent: respiratory distress, wheezes, stridor - Cardiovascular Cardiovascular exam: Present: regular rate, normal rhythm, normal heart sounds. Absent: irregular rhythm - Abdominal Exam Abdominal exam: Present: soft, Non-Tender, normal bowel sounds. Absent: distention, guarding, rebound, trauma, incision, mass, bruit - Male exam: Present: penile swelling, scrotal swelling, other (+right inguinal lymphadenopathy, palpable and painful). Absent: circumcised, phimosis, paraphimosis, lesions, induration, erythema, ulcerations, inguinal hernia, inguinal lymphadenopathy, testicular tenderness, urethral discharge Scrotal exam: testicular swelling: bilateral - Neurological Exam Neurological exam: Present: alert, oriented X3 - Psychiatric Psychiatric exam: Present: normal affect, normal mood - Skin Skin exam: Present: warm, dry, intact, normal color Course Vital Signs Temperature 97.7 F 05/26/18 18:46 Pulse Rate 62 05/26/18 18:46 Respiratory Rate 18 05/26/18 18:46 Blood Pressure 166/82 05/26/18 18:46 O2 Sat by Pulse Oximetry 99 05/26/18 18:46 Temperature 97.7 F 05/26/18 19:57 Pulse Rate 60 05/26/18 20:02 Respiratory Rate 16 05/26/18 20:02 Blood Pressure 152/74 05/26/18 20:02 O2 Sat by Pulse Oximetry 97 05/26/18 20:02 Oxygen Delivery Oxygen Delivery Room Air Medical Decision Making - MDM Narrative Medical decision making narrative: Patient's CT scan revealed significant adenopathy in the abdomen and pelvis its advisory internship affecting his pelvic pressures which internus cause him to have this penile and scrotal swelling. His pain in the right groin is secondary to palpable lymph lymphadenopathy that is also painful to touch. He does have bilateral hydronephrosis secondary to the adenopathy causing obstruction. I did speak with the on-call oncologist. He recommended a MRI of the head as well as a CT of the neck and chest as well as multiple labs that were put in the s tem. Case was also discussed with the hospitalist. His hydronephrosis at this time is not causing any pain and its not causing any elevation of his BUN/creatinine. He is able to urinate fine. - Medical Records Medical records reviewed: Yes I reviewed the patient's medical records. - Lab Data Lab results reviewed: Yes I reviewed the patient's lab results. Result diagrams: 05/26/18 19:43 05/26/18 19:43 Lab Results 05/26/18 05/26/18 05/26/18 Range/Units 19:43 19:43 19:43 WBC 39.9 H* (4.3-11.1) K/mcL RBC 3.90 L (4.19-5.50) M/mcL Hgb 12.5 L (12.9-16.9) g/dL Hct 38.4 (37.5-50.1) % MCV 98.5 (83.0-100.0) fL MCH 32.1 (28.0-33.3) pg MCHC 32.6 (31.6-35.5) g/dL RDW 15.4 H (11.5-14.5) % Plt Count 76 L (140-400) K/mcL MPV 12.5 H (9.4-12.4) fL Seg Neutrophils % 18.0 % Lymphocytes % 78.0 % Monocytes % 2.0 % Eosinophils % 2.0 % Neutrophils # 7.2 (1.6-8.9) K/mcL Lymphocytes # 31.1 H (0.6-4.6) K/mcL Monocytes # 0.8 (0.0-1.3) K/mcL Eosinophils # 0.8 H (0.0-0.6) K/mcL Nucleated RBCs/100 WBC 0.1 H (0) /100 WBC Reactive Lymphocytes Present A (Not Present) Smudge Cells Present A (Not Present) Platelet Estimate Decreased L (Normal) Sodium 142 (136-145) mEq/L Potassium 4.1 (3.5-5.1) mEq/L Chloride 107 (98-107) mEq/L Carbon Dioxide 29 (23-29) mEq/L BUN 22 (8-23) mg/dL Creatinine 1.15 (0.70-1.30) mg/dL Est GFR ( Amer) > 60 (> 60) Est GFR (Non-Af Amer) > 60 (> 60) BUN/Creatinine Ratio 19 (6-26) Glucose 121 H (70-105) mg/dL Calculated Osmolality 299 (280-300) Lactic Acid 1.2 (0.5-2.2) mmol/L Calcium 9.4 (8.6-10.3) mg/dL Total Bilirubin 0.5 (0.3-1.0) mg/dL Direct Bilirubin 0.0 (0.0-0.2) mg/dL Indirect Bilirubin 0.5 (0.0-1.2) mg/dL AST 17 (13-39) Units/L ALT 19 (7-52) Units/L Alkaline Phosphatase 75 (34-104) Units/L Serum Total Protein 6.4 (6.4-8.9) g/dL Albumin 4.3 (3.5-5.7) g/dL Globulin 2.1 L (2.4-3.5) g/dL Albumin/Globulin Ratio 2.0 (1.1-2.2) Urine Color (Yellow) Urine Clarity (Clear) Urine pH (5.0-8.0) pH Units Ur Specific [place] (1.010-1.025) Urine Protein (Neg-Trace) mg/dL Urine Glucose (UA) (Normal) mg/dL Urine Ketones (Negative) mg/dL Urine Blood (Negative) Urine Nitrite (Negative) Urine Bilirubin (Negative) Urine Urobilinogen (Normal) mg/dL Ur Leukocyte Esterase (Negative) Ur Culture Indicated? (NO) 05/26/18 Range/Units 19:58 WBC (4.3-11.1) K/mcL RBC (4.19-5.50) M/mcL Hgb (12.9-16.9) g/dL Hct (37.5-50.1) % MCV (83.0-100.0) fL MCH (28.0-33.3) pg MCHC (31.6-35.5) g/dL RDW (11.5-14.5) % Plt Count (140-400) K/mcL MPV (9.4-12.4) fL Seg Neutrophils % % Lymphocytes % % Monocytes % % Eosinophils % % Neutrophils # (1.6-8.9) K/mcL Lymphocytes # (0.6-4.6) K/mcL Monocytes # (0.0-1.3) K/mcL Eosinophils # (0.0-0.6) K/mcL Nucleated RBCs/100 WBC (0) /100 WBC Reactive Lymphocytes (Not Present) Smudge Cells (Not Present) Platelet Estimate (Normal) Sodium (136-145) mEq/L Potassium (3.5-5.1) mEq/L Chloride (98-107) mEq/L Carbon Dioxide (23-29) mEq/L BUN (8-23) mg/dL Creatinine (0.70-1.30) mg/dL Est GFR ( Amer) (> 60) Est GFR (Non-Af Amer) (> 60) BUN/Creatinine Ratio (6-26) Glucose (70-105) mg/dL Calculated Osmolality (280-300) Lactic Acid (0.5-2.2) mmol/L Calcium (8.6-10.3) mg/dL Total Bilirubin (0.3-1.0) mg/dL Direct Bilirubin (0.0-0.2) mg/dL Indirect Bilirubin (0.0-1.2) mg/dL AST (13-39) Units/L ALT (7-52) Units/L Alkaline Phosphatase (34-104) Units/L Serum Total Protein (6.4-8.9) g/dL Albumin (3.5-5.7) g/dL Globulin (2.4-3.5) g/dL Albumin/Globulin Ratio (1.1-2.2) Urine Color Yellow (Yellow) Urine Clarity Clear (Clear) Urine pH 6.0 (5.0-8.0) pH Units Ur Specific [place] 1.025 (1.010-1.025) Urine Protein Negative (Neg-Trace) mg/dL Urine Glucose (UA) Normal (Normal) mg/dL Urine Ketones Negative (Negative) mg/dL Urine Blood Negative (Negative) Urine Nitrite Negative (Negative) Urine Bilirubin Negative (Negative) Urine Urobilinogen Normal (Normal) mg/dL Ur Leukocyte Esterase Negative (Negative) Ur Culture Indicated? NO (NO) - Radiology Data Radiology results reviewed: Yes I reviewed the patient's radiology results. Critical Care Time Critical Care Time: Yes Total Critical Care Time: 45 Attestation: Critical care time of 45 minutes spent in medical management of the patient's significant adenopathy in consultation with hematology oncology and with the hospitalist.
[2018-05-26 20:02] LABS: Mean Corpuscular Hemoglobin 32.1 pg (28.0-33.3)
[2018-05-26 20:03] LABS: Hematocrit 38.4 % (37.5-50.1); Hemoglobin 12.5 g/dL (12.9-16.9); Mean Corpuscular HGB Conc 32.6 g/dL (31.6-35.5); Mean Corpuscular Volume 98.5 fL (83.0-100.0); Mean Platelet Volume 12.5 fL (9.4-12.4); Nucleated Red Blood Cells 0.1 /100 WBC (0); Red Cell Distribution Width 15.4 % (11.5-14.5)
[2018-05-26 20:09] LABS: Platelet Count 76 K/mcL (140-400)
[2018-05-26 20:12] LABS: Bilirubin,Urine Negative (Negative); Blood,Urine Negative (Negative); Clarity,Urine Clear (Clear); Color,Urine Yellow (Yellow); Glucose,Urine (UA) Normal (Normal); Ketones,Urine Negative (Negative); Leukocyte Esterase,Urine Negative (Negative); Nitrite,Urine Negative (Negative); Protein,Urine Negative (Neg-Trace); Specific Gravity,Urine 1.025 (1.010-1.025); Urobilinogen,Urine Normal (Normal)
[2018-05-26 20:21] LABS: Alanine Aminotransferase 19 Units/L (7-52); Albumin 4.3 g/dL (3.5-5.7); Alkaline Phosphatase 75 Units/L (34-104); Aspartate Amino Transferase 17 Units/L (13-39); BUN/Creatinine Ratio 19 (6-26); Bilirubin,Indirect 0.5 mg/dL (0.0-1.2); Bilirubin,Total 0.5 mg/dL (0.3-1.0); Blood Urea Nitrogen 22 mg/dL (8-23); Calcium 9.4 mg/dL (8.6-10.3); Carbon Dioxide 29 mEq/L (23-29); Chloride 107 mEq/L (98-107); Globulin 2.1 g/dL (2.4-3.5); Glucose 121 mg/dL (70-105); Osmolality,Calculated 299 (280-300); Potassium 4.1 mEq/L (3.5-5.1); Sodium 142 mEq/L (136-145); Total Protein 6.4 g/dL (6.4-8.9); eGFR For Non-African Americans > 60 (> 60)
[2018-05-26 20:31] LABS: Eosinophils # 0.8 K/mcL (0.0-0.6); Lymphocytes # 31.1 K/mcL (0.6-4.6); Monocytes # 0.8 K/mcL (0.0-1.3); Neutrophils # 7.2 K/mcL (1.6-8.9)
[2018-05-26 20:33] LABS: Platelet Estimate Decreased (Normal); Reactive Lymphocytes Present (Not Present); Smudge Cells Present (Not Present)
[2018-05-26 22:20] LABS: Lactate Dehydrogenase 286 Units/L (140-271); Magnesium 2.2 mg/dL (1.6-2.6); Phosphorous 3.4 mg/dL (2.7-4.5); Uric Acid 8.7 mg/dL (2.3-7.6)
--- NOTE | 2018-05-26 22:23 | Internal Med History&Physical ---
<Caleb Stuart - Last Filed: 05/27/18 00:24> Date of Encounter: 05/27/18 Internal Medicine - H&P: Meds Folic Acid 1 mg PO DAILY #90 tablet 04/01/17 [Rx] Aspirin/Acetaminophen/Caffeine [Excedrin Extra Strength Caplet] 2 tab PO Q12H PRN 03/06/18 [History] Levothyroxine [Synthroid] 150 mcg PO DAILY #90 tablet 05/02/18 [Rx] Allergy/AdvReac Type Severity Reaction Status Date / Time No Known Allergies Allergy Verified 05/26/18 22:47 All Systems PM: A 10-system review of systems was performed and is negative for pertinent findings except as documented above in the HPI. - Constitutional Vitals: Temp Pulse Resp BP Pulse Ox 97.7 F 60 18 125/70 99 05/26/18 19:57 05/26/18 22:23 05/26/18 22:23 05/26/18 22:23 05/26/18 22:23 Internal Med - H&P Results - Labs CBC & Chem 7: 05/26/18 19:43 05/26/18 19:43 Labs: Short CBC 05/26/18 Range/Units 19:43 WBC 39.9 H* (4.3-11.1) K/mcL Hgb 12.5 L (12.9-16.9) g/dL Hct 38.4 (37.5-50.1) % Plt Count 76 L (140-400) K/mcL Neutrophils # 7.2 (1.6-8.9) K/mcL BMP 05/26/18 19:43 Sodium 142 Potassium 4.1 Chloride 107 Carbon Dioxide 29 BUN 22 Creatinine 1.15 Glucose 121 H Calcium 9.4 Liver Function 05/26/18 Range/Units 19:43 Total Bilirubin 0.5 (0.3-1.0) mg/dL Direct Bilirubin 0.0 (0.0-0.2) mg/dL AST 17 (13-39) Units/L ALT 19 (7-52) Units/L Alkaline Phosphatase 75 (34-104) Units/L Albumin 4.3 (3.5-5.7) g/dL Urine 05/26/18 Range/Units 19:58 Urine Color Yellow (Yellow) Urine Clarity Clear (Clear) Urine pH 6.0 (5.0-8.0) pH Units Ur Specific [place] 1.025 (1.010-1.025) Urine Protein Negative (Neg-Trace) mg/dL Urine Glucose (UA) Normal (Normal) mg/dL - Impressions ITS Impressions Abdomen/Pelvis CT 05/26/18 19:40 IMPRESSION: There is massive adenopathy in the abdomen and pelvis most consistent with lymphoma. There are enlarged inguinal lymph nodes accessible to excisional biopsy or percutaneous biopsy. Splenomegaly. Irregular lobulated subpleural mass with spiculated margins in the posterior right lower lobe as described above. This must be considered tumor until proven otherwise. [id number]-right bilateral hydronephrosis is likely secondary to obstruction of the ureters by the bulky adenopathy. Thickening of the wall of the urinary bladder. This may represent hypertrophy from outlet obstruction. Due to the asymmetry, tumor cannot be excluded and correlation with cystoscopy is recommended. D/ / Michael Garcia MD / Michael Garcia MD Interpreting Provider: Michael Garcia MD - Time Spent With Patient Total time spent is greater than 50% in coordination of care (as documented) at patient's floor/unit and/or counseling patient: - Attending Attestation I performed a history and physical exam of the patient and discussed management with the resident. I reviewed the resident's note and agree with the documented findings and plan of care. Miguel Sparrow is a 63 year old man with Dixon stage IV CLL diagnosed in 2012 and Stage III (pT2N1 (metachronous marquise recurrence) moderately differentiated papillary thyroid carcinoma diagnosed 2014 s/p bilateral partial thyroidectomy 02/14/14 with pT2NX disease; right level V neck recurrence s/p right neck dissection 09/12/14. He continues to follow with oncology, last seen in clinic 3 weeks ago currently undergoing observation. At that visit he reported progressive left supraclavicular lymphadenopathy as well as left axillary lymphadenopathy but no B symptoms. The intent was to continue close monitoring with the estimation that he may require therapy down the line. He presents today to the ER c/o pain in his right groin for the past 4-5 days with concomitant swelling around his genitalia. He denies fever, chills, night sweats, dysuria, penile discharge, abdominal pain and change in bowel habits. Physical exam remarkable for well-developed white man who is anxious appearing but in no acute distress. Warm supple skin with moist mucous membranes and no conjunctivae pallor. Nontender submandibular, anterior and posterior cervical, supraclavicular, axillary and inguinal lymph nodes palpable bilaterally. Thyroid surgically absent. No wheezes, rales or rhonchi on lung auscultation. Normal S1/S2 with no rubs or murmurs. Abdomen nondistended and soft to palpation. Scrotal swelling is evident. Trace pedal edema. No focal deficits. Affect flat. CT scan was done, reviewed by me, shows massive adenopathy in the abdomen and pelvis most consistent with lymphoma, splenomegaly, an irregular lobulated subpleural mass with spiculated margins in the posterior RLL, left greater than right bilateral hydronephrosis likely secondary to obstruction of the ureters by the bulky adenopathy and thickening of the low urinary bladder wall possibly representing hypertrophied from outlet obstruction. Oncology was consulted and recommend martinez scanning the patient and lab work will be done. He will be seen on consult in the morning. For now he will remain on IV fluids, symptomatic treatment and close clinical monitoring pending further results. Prognosis is guarded. FRANCESCA FANG. <Francine Rios N - Last Filed: 05/27/18 01:31> Date of Encounter: 05/27/18 Time of Encounter: 22:23 Internal Medicine - H&P: HPI Chief complaint: Groin swelling/abdominal pain Admitted From: Emergency Dept History of present illness: Mr. Sparrow is a 63 year old male with a history of hypertension, CLL, and acquired hypothyroidism secondary to thyroidectomy. He presented to the emergency department complaining of right-sided abdominal pain for the last several days. It is associated with inguinal lymphadenopathy and scrotal swelling, particularly on the right. The pain is triggered with certain movements, and is variable in character. He states that the pain waxes and wanes, and estimates that at its worst, it is 10/10 in severity. He denies any associated pain or difficulty with voiding, dysuria, or urinary frequency. He estimates that the pain initially started several days ago, and states that she first noted scrotal swelling sometime yesterday. He reports some improvement in his pain today, stating that it was much worse yesterday. Initial vital signs obtained in the ED were as follows: Temperature 97.7, HR 62, RR 18, BP 166/88 2, and pulse oximetry of 99%. Laboratory studies demonstrated multiple significant abnormalities, including WBC count of 39.9, hemoglobin 12.5, platelet count 76, and the presence of reactive lymphocytes and smudge cells. Serum uric acid was noted to be elevated at 8.7, as was serum lactate dehydrogenase at 286. CT of the abdomen and pelvis demonstrated massive adenopathy in both areas was consistent with lymphoma. Other abnormal findings included splenomegaly, irregular lobulated subpleural mass with spiculated margins in the posterior right lower lobe, bilateral hydronephrosis greater on the left, and thickening of the wall of the urinary bladder. Subsequent chest CT demonstrated extensive adenopathy consistent with a history of lymphoma and a sed solid 3-4 mm left upper lobe nodule. CT of the neck demonstrated bilateral lymphadenopathy in the neck, axilla, and superior mediastinum. Patient was seen and evaluated at the bedside. He denied any acute pain or discomfort. He did appear mildly anxious and concerned for his prognosis. Review of systems is negative for any headaches, changes in vision, tender lymphadenopathy of the neck, chest pain, shortness of breath, cough, nausea/vomi ting, or abdominal pain. He states that he has otherwise been feeling fairly well lately. He voiced no new complaints or concerns. Past Med Surg Social Fam HX - Past Medical History Medical history: hypertension, kidney stones Additional medical history: hypothyroidism. CLL Psychiatric history: no psych history - Past Surgical History Surgical History: thyroidectomy Additional surgical history: lithotripsy. ureteral stent - Social History Smoking Status: Never smoker Smokeless Tobacco Status: No Alcohol use: none Drug use: none - Family History Mother Living Status: Hx Family Cardiac Disorders: Yes (unknown etiology) Hx Family Neuromuscular Disorders: Yes (2 CVAs) Father Living Status: Hx Family Cardiac Disorders: Yes (unknown etiology) All Systems PM: A 10-system review of systems was performed and is negative for pertinent findings except as documented above in the HPI. - Constitutional Vitals: Temp Pulse Resp BP Pulse Ox 97.7 F 60 16 152/74 97 05/26/18 19:57 05/26/18 20:02 05/26/18 20:02 05/26/18 20:02 05/26/18 20:02 Exam: GENERAL: Well-developed, well-nourished adult male in no acute distress. HEENT: Atraumatic and normocephalic. NECK: Soft and nontender. Nontender lymphadenopathy of bilateral submandibular and left supraclavicular nodes present. CARDIOVASCULAR: Regular rate and rhythm. S1 and S2 present. No murmurs, gallops, or rubs. RESPIRATORY: CTA bilaterally. Chest rises and falls symmetrically with respiration. No accessory muscle use noted. GASTROINTESTINAL: Active bowel sounds x 4 quadrants. Abdomen is soft, nontender, and nondistended. No palpable organomegaly present. GENITOURINARY: Scrotal swelling and erythema present that is greater on the right. EXTREMITIES: No clubbing, cyanosis, or edema present. SKIN: Warm, dry, and intact. NEUROLOGIC: Patient answers questions appropriately and is cooperative with exam. No apparent focal deficits. PSYCHIATRIC: Slightly flat affect. Patient appears mildly anxious. Internal Med - H&P Results - Labs CBC & Chem 7: 05/26/18 19:43 05/26/18 19:43 Labs: Short CBC 05/26/18 Range/Units 19:43 WBC 39.9 H* (4.3-11.1) K/mcL Hgb 12.5 L (12.9-16.9) g/dL Hct 38.4 (37.5-50.1) % Plt Count 76 L (140-400) K/mcL Neutrophils # 7.2 (1.6-8.9) K/mcL BMP 05/26/18 19:43 Sodium 142 Potassium 4.1 Chloride 107 Carbon Dioxide 29 BUN 22 Creatinine 1.15 Glucose 121 H Calcium 9.4 Liver Function 05/26/18 Range/Units 19:43 Total Bilirubin 0.5 (0.3-1.0) mg/dL Direct Bilirubin 0.0 (0.0-0.2) mg/dL AST 17 (13-39) Units/L ALT 19 (7-52) Units/L Alkaline Phosphatase 75 (34-104) Units/L Albumin 4.3 (3.5-5.7) g/dL Urine 05/26/18 Range/Units 19:58 Urine Color Yellow (Yellow) Urine Clarity Clear (Clear) Urine pH 6.0 (5.0-8.0) pH Units Ur Specific [place] 1.025 (1.010-1.025) Urine Protein Negative (Neg-Trace) mg/dL Urine Glucose (UA) Normal (Normal) mg/dL - Impressions ITS Impressions Abdomen/Pelvis CT 05/26/18 19:40 IMPRESSION: There is massive adenopathy in the abdomen and pelvis most consistent with lymphoma. There are enlarged inguinal lymph nodes accessible to excisional biopsy or percutaneous biopsy. Splenomegaly. Irregular lobulated subpleural mass with spiculated margins in the posterior right lower lobe as described above. This must be considered tumor until proven otherwise. Bqyz-[id number]-right bilateral hydronephrosis is likely secondary to obstruction of the ureters by the bulky adenopathy. Thickening of the wall of the urinary bladder. This may represent hypertrophy from outlet obstruction. Due to the asymmetry, tumor cannot be excluded and correlation with cystoscopy is recommended. D/ / Michael Garcia MD / Michael Garcia MD Interpreting Provider: Michael Garcia MD - Assessment and plan (1) Scrotal swelling Current Visit: Yes Status: Acute Assessment and plan: Likely secondary to decreased lymphatic drainage due to inguinal lymphadenopathy. - Symptomatic management - Oncology consult for further evaluation and recommendations (2) Leukocytosis Current Visit: Yes Status: Acute Assessment and plan: Likely secondary to lymphoma. - Repeat CBC with morning laboratory studies - Consult to oncology - Monitor for signs and symptoms of acute infectious process Qualifiers: Leukocytosis type: unspecified Qualified Code(s): D72.829 - Elevated white blood cell count, unspecified (3) Abdominal lymphadenopathy Current Visit: Yes Status: Acute Assessment and plan: High suspicion for lymphoma, particularly in light of concomitant elevated WBC c ount and history of CLL. - Oncology evaluation and recommendations pending - Brain MRI to evaluate for metastasis (4) Bladder wall thickening Current Visit: Yes Status: Acute Assessment and plan: Patient denies any dysuria, urinary frequency, or inability to void. - Monitor for signs of urinary retention - Consider urology consult for cystoscopy if urinary symptoms develop (5) CLL (chronic lymphocytic leukemia) Current Visit: Yes Status: Chronic Assessment and plan: - Continue outpatient management with oncology provider (6) Hypothyroidism (acquired) Current Visit: No Status: Chronic Assessment and plan: - Continue home dose of levothyroxine (7) DVT prophylaxis Current Visit: Yes Status: Acute Assessment and plan: - Heparin 5000units SQ Q8H - Time Spent With Patient Total time spent is greater than 50% in coordination of care (as documented) at patient's floor/unit and/or counseling patient:
[2018-05-26] MEDS: 0.9 % Sodium Chloride 1,000 ML IVC SCH (22:27)
[2018-05-27] MEDS ORDERED: traMADol 50 MG TABLET PO PRN (00:49)
[2018-05-27] MEDS ORDERED: Naloxone 0.4 MG/ML INJ IVP PRN (00:49)
[2018-05-27] MEDS ORDERED: Acetaminophen 325 MG TABLET PO PRN (00:49)
[2018-05-27 05:05] LABS: Hematocrit 34.7 % (37.5-50.1); Hemoglobin 11.4 g/dL (12.9-16.9); Mean Corpuscular HGB Conc 32.9 g/dL (31.6-35.5); Mean Corpuscular Hemoglobin 32.4 pg (28.0-33.3); Mean Corpuscular Volume 98.6 fL (83.0-100.0); Mean Platelet Volume 12.5 fL (9.4-12.4); Red Blood Count 3.52 M/mcL (4.19-5.50); Red Cell Distribution Width 15.6 % (11.5-14.5)
[2018-05-27 05:14] LABS: BUN/Creatinine Ratio 21 (6-26); Blood Urea Nitrogen 18 mg/dL (8-23); Calcium 8.6 mg/dL (8.6-10.3); Carbon Dioxide 26 mEq/L (23-29); Chloride 109 mEq/L (98-107); Glucose 106 mg/dL (70-105); Osmolality,Calculated 292 (280-300); Sodium 140 mEq/L (136-145); eGFR For Non-African Americans > 60 (> 60)
[2018-05-27 05:26] LABS: Platelet Count 67 K/mcL (140-400)
[2018-05-27 05:39] LABS: Platelet Estimate Decreased (Normal)
[2018-05-27 05:40] LABS: Reactive Lymphocytes Present (Not Present); Smudge Cells Present (Not Present)
[2018-05-27 05:43] LABS: Monocytes # 0.7 K/mcL (0.0-1.3); Neutrophils # 2.5 K/mcL (1.6-8.9)
[2018-05-27] MEDS ORDERED: *HR* Heparin 5,000 UNIT/ML VIAL SQ SCH (06:00)
[2018-05-27] MEDS: *HR* Heparin 5,000 UNIT/ML VIAL SQ SCH ×3 (06:15→23:20)
[2018-05-27] MEDS ORDERED: Gadolinium Contrast Agent (WT Based) IV PRN (07:00)
--- NOTE | 2018-05-27 09:11 | Internal Med Progress Note ---
Hospitalist Progress Note - Encounter Date of Encounter: 05/27/18 Time of Encounter: 10:00 - Exam Vitals: Temp Pulse Resp BP Pulse Ox 98.1 F 51 16 136/56 97 05/27/18 06:26 05/27/18 06:26 05/27/18 06:26 05/27/18 06:26 05/27/18 06:26 Exam: GENERAL: Well-developed, well-nourished adult male in no acute distress. HEENT: Atraumatic and normocephalic. NECK: Soft and nontender. Nontender lymphadenopathy of bilateral submandibular and left supraclavicular nodes present. CARDIOVASCULAR: Regular rate and rhythm. S1 and S2 present. No murmurs, gallops, or rubs. RESPIRATORY: CTA bilaterally. Chest rises and falls symmetrically with respiration. No accessory muscle use noted. GASTROINTESTINAL: Active bowel sounds x 4 quadrants. Abdomen is soft, nontender, and nondistended. No palpable organomegaly present. GENITOURINARY: Scrotal swelling and erythema present that is greater on the right. EXTREMITIES: No clubbing, cyanosis, or edema present. SKIN: Warm, dry, and intact. NEUROLOGIC: Patient answers questions appropriately and is cooperative with exam. No apparent focal deficits. PSYCHIATRIC: Slightly flat affect. Patient appears mildly anxious. - Assessment and Plan (1) Scrotal swelling Current Visit: Yes Status: Acute Assessment and Plan: Likely secondary to decreased lymphatic drainage due to worsening inguinal lymphadenopathy. Continue IV fluids. Discussed with oncology, their impression is that his his CLL may be converting to a high grade lymphoma Will do flow cytometry, anemia workup, plan for CT guided lymph node biopsy by IR Plan to start on steroids/ treatment for high grade lymphoma once biopsy is complete per oncology Urology recs appreciated for hydronephrosis. NPO from midnight in case of biopsy in am (2) CLL (chronic lymphocytic leukemia) Current Visit: Yes Status: Chronic Assessment and Plan: Discussed with oncology, their impression is that his CLL may be converting to a high grade lymphoma Will do flow cytometry, anemia workup, plan for CT guided lymph node biopsy by IR Plan to start on steroids/ treatment for high grade lymphoma once biopsy is complete per oncology Urology recs appreciated for hydronephrosis (3) Hypothyroidism (acquired) Current Visit: No Status: Chronic Assessment and Plan: - Continue home dose of levothyroxine (4) Abdominal lymphadenopathy Current Visit: Yes Status: Acute Assessment and Plan: High suspicion for lymphoma, particularly in light of concomitant elevated WBC count and history of CLL. Oncology on board. Brain MRI negative for metastatic disease (5) Bladder wall thickening Current Visit: Yes Status: Acute Assessment and Plan: Patient denies any dysuria, urinary frequency, or inability to void. Has significant hydronephrosis. Urology consulted and appreciate recs (6) Leukocytosis Current Visit: Yes Status: Acute Assessment and Plan: Likely secondary to lymphoma. Oncology following. Monitor CBC. Follow up flow cytometry, retic count, anemia workup (7) DVT prophylaxis Current Visit: Yes Status: Acute Assessment and Plan: - Heparin 5000units SQ Q8H - Time Spent with Patient Total time spent is greater than 50% in coordination of care (as documented) at patient's floor/unit and/or counseling patient: Internal Medicine: Result - Labs CBC & Chem 7: 05/27/18 04:34 05/27/18 04:34 Labs: Short CBC 05/26/18 05/27/18 Range/Units 19:43 04:34 WBC 39.9 H* 36.2 H* (4.3-11.1) K/mcL Hgb 12.5 L 11.4 L (12.9-16.9) g/dL Hct 38.4 34.7 L (37.5-50.1) % Plt Count 76 L 67 L (140-400) K/mcL Neutrophils # 7.2 2.5 (1.6-8.9) K/mcL BMP 05/26/18 05/27/18 19:43 04:34 Sodium 142 140 Potassium 4.1 4.0 Chloride 107 109 H Carbon Dioxide 29 26 BUN 22 18 Creatinine 1.15 0.84 Glucose 121 H 106 H Calcium 9.4 8.6 Liver Function 05/26/18 Range/Units 19:43 Total Bilirubin 0.5 (0.3-1.0) mg/dL Direct Bilirubin 0.0 (0.0-0.2) mg/dL AST 17 (13-39) Units/L ALT 19 (7-52) Units/L Alkaline Phosphatase 75 (34-104) Units/L Albumin 4.3 (3.5-5.7) g/dL Urine 05/26/18 Range/Units 19:58 Urine Color Yellow (Yellow) Urine Clarity Clear (Clear) Urine pH 6.0 (5.0-8.0) pH Units Ur Specific [place] 1.025 (1.010-1.025) Urine Protein Negative (Neg-Trace) mg/dL Urine Glucose (UA) Normal (Normal) mg/dL - Impressions Impressions Abdomen/Pelvis CT 05/26/18 19:40 IMPRESSION: There is massive adenopathy in the abdomen and pelvis most consistent with lymphoma. There are enlarged inguinal lymph nodes accessible to excisional biopsy or percutaneous biopsy. Splenomegaly. Irregular lobulated subpleural mass with spiculated margins in the posterior right lower lobe as described above. This must be considered tumor until proven otherwise. [id number]-right bilateral hydronephrosis is likely secondary to obstruction of the ureters by the bulky adenopathy. Thickening of the wall of the urinary bladder. This may represent hypertrophy from outlet obstruction. Due to the asymmetry, tumor cannot be excluded and correlation with cystoscopy is recommended. D/ / Michael Garcai MD / Michael Garcia MD Interpreting Provider: Michael Garcia MD Chest CT 05/26/18 21:54 IMPRESSION: 1. Extensive adenopathy would be consistent with the history of lymphoma. 2. The focal opacity in the posterior right lower lobe could represent pneumonia, pulmonary lymphoma or bronchogenic carcinoma. 3. Subsolid 3-4 mm left upper lobe nodule, nonspecific. Fleischner criteria do not apply in patients with a known malignancy and attention on follow-up imaging is recommended. D/ / Nico Grande MD / Nico Grande MD Interpreting Provider: Nico Grande MD Soft Tissue Neck CT 05/26/18 21:54 IMPRESSION: Lymphadenopathy in the left and right neck and axilla as well as superior mediastinum as described, consistent with the given history of lymphoma. D/ / Lencho Chan MD / Lencho Chan MD Interpreting Provider: Lencho Chan MD Consult Discharge Plan - Plan Referrals: Kalen Hart DO [Primary Care Provider] - (6) Leukocytosis Qualifiers: Leukocytosis type: unspecified Qualified Code(s): D72.829 - Elevated white blood cell count, unspecified
[2018-05-27] MEDS: 0.9 % Sodium Chloride 1,000 ML IVC SCH ×2 (09:26→18:46)
[2018-05-27 12:20] LABS: Immature Reticulocyte % 6.9 % (11.0-38.0); Retculocyte # 0.03 M/mcL (0.05-0.10); Reticulocyte % 0.9 % (1.6-2.8)
[2018-05-27 12:37] LABS: % Iron Saturation 36 % (20-55); Iron 95 mcg/dL (65-175); Lactate Dehydrogenase 243 Units/L (140-271); Transferrin 188 mg/dL (203-362)
[2018-05-27 13:05] LABS: Folate 22.1 ng/mL (3.0-16.0)
--- NOTE | 2018-05-27 21:39 | Urology - Consult Note ---
Date of Encounter: 05/27/18 Time of Encounter: 21:38 - Assessment and Plan (1) Bilateral hydronephrosis Current Visit: Yes Status: Acute Assessment and plan: Left greater than right on review of CT images. Secondary to massive r etroperitoneal adenopathy. Fortunately, his renal function is still normal. Prophylactic placement of bilateral stents is the most appropriate course of action until his adenopathy responds to systemic therapy. Plan: Will discuss non-urgent placement of stents during this admission or as outpatient (2) Bladder wall thickening Current Visit: Yes Status: Acute Assessment and plan: likely the result of voiding against resistance/BPH. Cysto in near future to rule out pathology. Plan: Cysto will be required for stent placement. (3) Scrotal swelling Current Visit: Yes Status: Acute Assessment and plan: Exam with mild penile edema. No scrotal edema. Penile edema secondary to retroperitoneal, pelvic and inguinal adenopathy. Plan: address adenopathy as per oncology. Scrotal elevation while sitting and laying may provide some relief Urology CN:HPI Consult date: 05/27/18 Reason for consult Urology: Hydronephrosis Requesting physician: Raúl Lane History of present illness: He presents today to the ER c/o pain in his right groin for the past 4-5 days with concomitant swelling around his genitalia. He denies fever, chills, night sweats, dysuria, penile discharge, abdominal pain and change in bowel habits. Physical exam remarkable for well-developed white man who is anxious appearing but in no acute distress. Warm supple skin with moist mucous membranes and no conjunctivae pallor. Nontender submandibular, anterior and posterior cervical, supraclavicular, axillary and inguinal lymph nodes palpable bilaterally. Thyroid surgically absent. No wheezes, rales or rhonchi on lung auscultation. Normal S1/S2 with no rubs or murmurs. Abdomen nondistended and soft to palpation. Scrotal swelling is evident. Trace pedal edema. No focal deficits. Affect flat. CT scan was done, reviewed by me, shows massive adenopathy in the abdomen and pelvis most consistent with lymphoma, splenomegaly, an irregular lobulated subpleural mass with spiculated margins in the posterior RLL, left greater than right bilateral hydronephrosis likely secondary to obstruction of the ureters by the bulky adenopathy and thickening of the low urinary bladder wall possibly representing hypertrophied from outlet obstruction. Oncology was consulted and recommend martinez scanning the patient and lab work will be done. He will be seen on consult in the morning. For now he will remain on IV fluids, symptomatic treatment and close clinical monitoring pending further results. Prognosis is guarded. FRANCESCA FANG. Past Med Surg Social Fam HX - Past Medical History Medical history: hypertension, kidney stones Additional medical history: hypothyroidism. CLL Psychiatric history: no psych history - Past Surgical History Surgical History: thyroidectomy Additional surgical history: lithotripsy. ureteral stent - Social History Smoking Status: Never smoker Smokeless Tobacco Status: No Alcohol use: none Drug use: none - Family History Mother Name: Shila Living Status: Age at : 88 Cause of : pulmonary embolism Hx Family Cardiac Disorders: Yes (unknown etiology) Hx Family Neuromuscular Disorders: Yes (2 CVAs) Father Name: Noel Living Status: Age at : 90 Cause of : congestive heart failure Hx Family Cardiac Disorders: Yes (unknown etiology) Medications and Allergies Folic Acid 1 mg PO DAILY #90 tablet 04/01/17 [Rx] Aspirin/Acetaminophen/Caffeine [Excedrin Extra Strength Caplet] 2 tab PO Q12H PRN 03/06/18 [History] Levothyroxine [Synthroid] 150 mcg PO DAILY #90 tablet 05/02/18 [Rx] Allergy/AdvReac Type Severity Reaction Status Date / Time No Known Allergies Allergy Verified 05/26/18 22:47 Review of Systems - Constitutional no chills, no fever(s) - EENT Nose, mouth and throat: no dizziness, no headache(s) - Cardiovascular no chest pain, no diaphoresis - Respiratory no cough, no dyspnea - Gastrointestinal no abdominal pain, no fecal incontinence - Genitourinary genital pain - Musculoskeletal no back pain, no muscle weakness - Integumentary no lesions, no swelling - Neurological no confusion, no sensory deficit - Psychiatric no anxiety, no confusion - Hematologic/Lymphatic lymphadenopathy, no easy bleeding, no easy bruising - Allergic/Immunologic no throat swelling, no wheezing Exam Initial Vital Signs Temp Pulse Resp BP Pulse Ox 97.7 F 62 18 166/82 99 05/26/18 18:46 05/26/18 18:46 05/26/18 18:46 05/26/18 18:46 05/26/18 18:46 - General physical appearance Present: no distress - Eyes Present: normal ocular movement - ENT Present: normal mucosa - Neck Present: trachea midline - Respiratory Present: normal respiratory effort - Genitourinary testicles non-tender Penis: Present: other Testicles: Present: normal size - Integumentary Present: no rash, no abnormal pigmentation - Neurologic Present: normal coordination - Musculoskeletal Present: normal gait Urology Results - Labs 05/27/18 04:34 05/27/18 04:34 Abnormal lab results WBC 36.2 K/mcL (4.3-11.1) H* 05/27/18 04:34 RBC 3.52 M/mcL (4.19-5.50) L 05/27/18 04:34 Hgb 11.4 g/dL (12.9-16.9) L 05/27/18 04:34 Hct 34.7 % (37.5-50.1) L 05/27/18 04:34 RDW 15.6 % (11.5-14.5) H 05/27/18 04:34 Plt Count 67 K/mcL (140-400) L 05/27/18 04:34 MPV 12.5 fL (9.4-12.4) H 05/27/18 04:34 Reticulocyte # 0.03 M/mcL (0.05-0.10) L 05/27/18 11:50 Myelocytes % 4.0 % (0) H 05/27/18 04:34 Blast Cells % 28.0 % (0) H 05/27/18 04:34 Lymphocytes # 21.0 K/mcL (0.6-4.6) H 05/27/18 04:34 Eosinophils # 0.8 K/mcL (0.0-0.6) H 05/26/18 19:43 Nucleated RBCs/100 WBC 0.1 /100 WBC (0) H 05/26/18 19:43 Reactive Lymphocytes Present (Not Present) A 05/27/18 04:34 Smudge Cells Present (Not Present) A 05/27/18 04:34 Platelet Estimate Decreased (Normal) L 05/27/18 04:34 Percent Retic 0.9 % (1.6-2.8) L 05/27/18 11:50 Immature Retic Fraction 6.9 % (11.0-38.0) L 05/27/18 11:50 Retic Hgb Equivalent 37.7 pg (28.61-36.33) H 05/27/18 11:50 Chloride 109 mEq/L (98-107) H 05/27/18 04:34 Glucose 106 mg/dL (70-105) H 05/27/18 04:34 Uric Acid 8.7 mg/dL (2.3-7.6) H 05/26/18 19:43 Transferrin 188 mg/dL (203-362) L 05/27/18 11:50 Globulin 2.1 g/dL (2.4-3.5) L 05/26/18 19:43 Vitamin B12 233 pg/mL (250-1100) L 05/27/18 11:50 Folate 22.1 ng/mL (3.0-16.0) H 05/27/18 11:50 Diabetes panel 05/26/18 05/27/18 Range/Units 19:43 04:34 Sodium 142 140 (136-145) mEq/L Potassium 4.1 4.0 (3.5-5.1) mEq/L Chloride 107 109 H (98-107) mEq/L Carbon Dioxide 29 26 (23-29) mEq/L BUN 22 18 (8-23) mg/dL Creatinine 1.15 0.84 (0.70-1.30) mg/dL Glucose 121 H 106 H (70-105) mg/dL Calcium 9.4 8.6 (8.6-10.3) mg/dL AST 17 (13-39) Units/L ALT 19 (7-52) Units/L Alkaline Phosphatase 75 (34-104) Units/L Albumin 4.3 (3.5-5.7) g/dL Calcium panel 05/26/18 05/27/18 Range/Units 19:43 04:34 Calcium 9.4 8.6 (8.6-10.3) mg/dL Phosphorus 3.4 (2.7-4.5) mg/dL Albumin 4.3 (3.5-5.7) g/dL Pituitary panel 05/26/18 05/27/18 Range/Units 19:43 04:34 Sodium 142 140 (136-145) mEq/L Potassium 4.1 4.0 (3.5-5.1) mEq/L Chloride 107 109 H (98-107) mEq/L Carbon Dioxide 29 26 (23-29) mEq/L BUN 22 18 (8-23) mg/dL Creatinine 1.15 0.84 (0.70-1.30) mg/dL Glucose 121 H 106 H (70-105) mg/dL Calcium 9.4 8.6 (8.6-10.3) mg/dL Adrenal panel 05/26/18 05/27/18 Range/Units 19:43 04:34 Sodium 142 140 (136-145) mEq/L Potassium 4.1 4.0 (3.5-5.1) mEq/L Chloride 107 109 H (98-107) mEq/L Carbon Dioxide 29 26 (23-29) mEq/L BUN 22 18 (8-23) mg/dL Creatinine 1.15 0.84 (0.70-1.30) mg/dL Glucose 121 H 106 H (70-105) mg/dL Calcium 9.4 8.6 (8.6-10.3) mg/dL Total Bilirubin 0.5 (0.3-1.0) mg/dL AST 17 (13-39) Units/L ALT 19 (7-52) Units/L Alkaline Phosphatase 75 (34-104) Units/L Albumin 4.3 (3.5-5.7) g/dL All other labs normal. - Imaging CT scan - abdomen: image reviewed (images reviewed and interpreted independently) CT scan - pelvis: image reviewed Consult Discharge Plan - Plan Referrals: Kalen Hart DO [Primary Care Provider] -
[2018-05-27] MEDS: Acetaminophen/Aspirin/Caffeine TABLET PO PRN (23:17)
[2018-05-28] MEDS: 0.9 % Sodium Chloride 1,000 ML IVC SCH ×3 (03:44→19:48)
[2018-05-28] MEDS: *HR* Heparin 5,000 UNIT/ML VIAL SQ SCH ×2 (05:38→14:40)
--- NOTE | 2018-05-28 08:52 | Internal Med Progress Note ---
Hospitalist Progress Note - Encounter Date of Encounter: 05/28/18 Time of Encounter: 08:50 - Exam Vitals: Temp Pulse Resp BP Pulse Ox 97.9 F 51 14 122/74 97 05/28/18 06:40 05/28/18 06:40 05/28/18 06:40 05/28/18 06:40 05/28/18 06:40 Exam: GENERAL: Well-developed, well-nourished adult male in no acute distress. HEENT: Atraumatic and normocephalic. NECK: Soft and nontender. Nontender lymphadenopathy of bilateral submandibular and left supraclavicular nodes present. CARDIOVASCULAR: Regular rate and rhythm. S1 and S2 present. No murmurs, gallops, or rubs. RESPIRATORY: CTA bilaterally. Chest rises and falls symmetrically with respiration. No accessory muscle use noted. GASTROINTESTINAL: Active bowel sounds x 4 quadrants. Abdomen is soft, nontender, and nondistended. No palpable organomegaly present. GENITOURINARY: Scrotal swelling and erythema present that is greater on the right. EXTREMITIES: No clubbing, cyanosis, or edema present. SKIN: Warm, dry, and intact. NEUROLOGIC: Patient answers questions appropriately and is cooperative with exam. No apparent focal deficits. PSYCHIATRIC: Slightly flat affect. Patient appears mildly anxious. - Assessment and Plan (1) Scrotal swelling Current Visit: Yes Status: Acute Assessment and Plan: Likely secondary to decreased lymphatic drainage due to progressive generalized lymphadenopathy Continue IV fluids. 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 Oncology on board. Brain MRI negative for metastatic disease (5) Bladder wall thickening Current Visit: Yes Status: Acute Assessment and Plan: Patient denies any dysuria, urinary frequency, or inability to void. Has significant hydronephrosis. Urology consulted and appreciate recs (6) Leukocytosis Current Visit: Yes Status: Acute Assessment and Plan: Likely secondary to lymphoma. Oncology following. Monitor CBC. Follow up flow cytometry, retic count, anemia workup (7) Bilateral hydronephrosis Current Visit: Yes Status: Acute Assessment and Plan: Urology plan for placement of bilateral stents (8) DVT prophylaxis Current Visit: Yes Status: Acute Assessment and Plan: - Heparin 5000units SQ Q8H - Time Spent with Patient Total time spent is greater than 50% in coordination of care (as documented) at patient's floor/unit and/or counseling patient: Internal Medicine: Result - Labs CBC & Chem 7: 05/27/18 04:34 05/27/18 04:34 - Impressions Impressions Brain MRI 05/27/18 07:00 IMPRESSION: 1. No acute intracranial abnormality. No evidence of intracranial metastatic disease. 2. 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 Dedicated MRI of the pituitary gland without and with contrast is recommended for better evaluation. The findings were sent to the Radiology Results Communication [facility] at 11:01 am on 05/27/2018to be communicated to a licensed caregiver. D/ / Mau Bowles MD / Mau Bowles MD Interpreting Provider: Mau Bowles MD Consult Discharge Plan - Plan Referrals: Kalen Hart DO [Primary Care Provider] - (6) Leukocytosis Qualifiers: Leukocytosis type: unspecified Qualified Code(s): D72.829 - Elevated white blood cell count, unspecified
--- NOTE | 2018-05-28 10:04 | Oncology Inp Consult Note ---
Date of Encounter: 05/28/18 Time of Encounter: 10:06 - Data of Consult Requesting Physician: Odell Mckeon MD Primary Care Provider: Kalen Hart DO - Consult Narrative Reason for consult: CLL History of present illness: A/P: (1) Progressive generalized MARYJANE, splenomegaly, scrotal swelling and premature cells on differential all concerning for richters transformation vs transformation to leukemia -There is concern for progression of CLL to a high grade lymphoma; leukemia less likely however premature cells seen on CBC differential (metamyelocytes/myelocytes/nucleated red blood cells) -Patient will need CT guided LN biopsy (cervical/axillary/inguinal regions all accessible) and will need bone marrow biopsy -Continue on IVFs, NS at 100 cc/hr -Start allopurinol 300 mg PO BID with elevated uric acid of 8.7 -Please check daily CBC, CMP, LDH, PT/INR, Fibriogen, Mg, Phos, and uric acid -Once LN biopsy complete, will likely start on steroids Solumedrol 125 mg q8h w/ SSI. Do not want to obscure pathology results before obtaining biopsy. -Please check HIV, Hep B, Hep C, peripheral blood flow cytometery. PCR BCR-ABL, FISH t (9;22). (2) Anemia likely 2/2 underlying CLL -LDH 286 -Fe 95, iron saturation 36% transferrin 188. Folic acid 22.1 -Vit B12 233; please start on Vit B12 1000 mcg SQ or IM daily -Please check haptoglobin, AUBRIE, SPEP, serum immunoelectrophoresis, serum free K/L light chains, Immunoglobulins (IgA, IgM, IgG) (3) Bilateral hydronephrosis -Urology c/s. Left greater than right on CT images. Secondary to massive re troperitoneal adenopathy. Renal function normal at this time. Urology feels prophylactic placement of bilateral stents is the most appropriate course of action until his adenopathy responds to systemic therapy. (4) Bladder wall thickening Per urology, likely the result of voiding against resistance/BPH. Will consider cystoscopy in near future to rule out pathology. (5) Scrotal swelling secondary to retroperitoneal, pelvic and inguinal adenopathy -Hopefully will resolve with steroids and treatment HPI: The patient is a 62 yo WM w/h/o Lee stage IV CLL. Normal cytogenetics. Patient presented with significant cytopenias including thrombocytopenia necessitating treatment. He is status post 2 cycles of bendamustine and Rituxan followed by 2 cycles or Rituxan alone. He completed treatment 08/01/2014. He has been under observation since that time. 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 S/P bilateral partial thyroidectomy 02/14/14 with pT2NX disease. Followed by [facility] 04/05/14. Right level V neck recurrence s/p right neck dissection 09/12/14 followed by [facility] 10/23/14. The patient on this admission presented with right-sided abdominal pain for the last several days. The pain is associated with inguinal lymphadenopathy and scrotal swelling, particularly on the right. The pain was triggered with certain movements, and comes and goes. The patient however denies any associated pain or difficulty with voiding, dysuria, or urinary frequency. CT of the abdomen and pelvis demonstrated massive adenopathy in both areas was consistent with lymphoma. Other abnormal findings included splenomegaly, irregular lobulated subpleural mass with spiculated margins in the posterior right lower lobe, bilateral hydronephrosis greater on the left, and thickening of the wall of the urinary bladder. Subsequent chest CT demonstrated extensive adenopathy consistent with a history of lymphoma and a sed solid 3-4 mm left upper lobe nodule. CT of the neck demonstrated bilateral lymphadenopathy in the neck, axilla, and superior mediastinum. Interval history: The patient this AM states his abdominal pain/inguinal pain has improved significantly over the past two days. He says he is hungry, but otherwise denies any fevers, chills, chest pain, SOB, N/V, or urinary/bowel issues. ROS: 12 point ROS performed. Pertinent positives in HPI. PE GENERAL: AAO x 3, in NAD. Appears stated aged. Mental status intact and appropriate. HEENT: NC/AT. MMM. EOMI. NECK: Significant MARYJANE of bilateral submandibular and left supraclavicular nodes. Nodes however nontender. CV: Regular rate and rhythm. S1 and S2 present. No murmurs, gallops, or rubs. Lungs: CTAB, no w/r/r ABD: Soft, NT, ND, +BS : Scrotal swelling and erythema present. No inguinal MARYJANE appreciated. EXT: no c/c/e SKIN: Warm, dry, and intact. No unusual lesions, petechiae, or rashes apparent at this time. NEUROLOGIC: No focal deficits. AAO x 3. MARYJANE: bilateral submandibular, left supraclavicular, and left axillary MARYJANE noted. No inguinal MARYJANE appreciated. Past Med Surg Social Fam HX - Past Medical History Medical history: hypertension, kidney stones Additional medical history: hypothyroidism. CLL Psychiatric history: no psych history - Past Surgical History Surgical History: thyroidectomy Additional surgical history: lithotripsy. ureteral stent - Social History Smoking Status: Never smoker Smokeless Tobacco Status: No Alcohol use: none Drug use: none - Family History Mother Name: Shila Living Status: Age at : 88 Cause of : pulmonary embolism Hx Family Cardiac Disorders: Yes (unknown etiology) Hx Family Neuromuscular Disorders: Yes (2 CVAs) Father Name: Noel Living Status: Age at : 90 Cause of : congestive heart failure Hx Family Cardiac Disorders: Yes (unknown etiology) Medications and Allergies Folic Acid 1 mg PO DAILY #90 tablet 04/01/17 [Rx] Aspirin/Acetaminophen/Caffeine [Excedrin Extra Strength Caplet] 2 tab PO Q12H PRN 03/06/18 [History] Levothyroxine [Synthroid] 150 mcg PO DAILY #90 tablet 05/02/18 [Rx] Allergy/AdvReac Type Severity Reaction Status Date / Time No Known Allergies Allergy Verified 05/26/18 22:47 Oncology - Exam - Constitutional Vitals: Temp Pulse Resp BP Pulse Ox 97.9 F 51 14 122/74 97 05/28/18 06:40 05/28/18 06:40 05/28/18 06:40 05/28/18 06:40 05/28/18 06:40 Oncology - Results Labs: 05/27/18 05/27/18 05/27/18 11:50 11:50 11:50 WBC RBC Hgb Hct MCV MCH MCHC RDW Plt Count MPV Reticulocyte # 0.03 L Seg Neutrophils % Band Neutrophils % Lymphocytes % Monocytes % Eosinophils % Myelocytes % Blast Cells % Neutrophils # Lymphocytes # Monocytes # Eosinophils # Nucleated RBCs/100 WBC Reactive Lymphocytes Smudge Cells Platelet Estimate Percent Retic 0.9 L Immature Retic Fraction 6.9 L Retic Hgb Equivalent 37.7 H Sodium Potassium Chloride Carbon Dioxide BUN Creatinine Est GFR ( Amer) Est GFR (Non-Af Amer) BUN/Creatinine Ratio Glucose Calculated Osmolality Lactic Acid Uric Acid Calcium Phosphorus Magnesium Iron 95 % Saturation 36 Transferrin 188 L Total Bilirubin Direct Bilirubin Indirect Bilirubin AST ALT Alkaline Phosphatase Lactate Dehydrogenase 243 Serum Total Protein Albumin Globulin Albumin/Globulin Ratio Vitamin B12 233 L Folate 22.1 H Urine Color Urine Clarity Urine pH Ur Specific [place] Urine Protein Urine Glucose (UA) Urine Ketones Urine Blood Urine Nitrite Urine Bilirubin Urine Urobilinogen Ur Leukocyte Esterase Ur Culture Indicated? 05/27/18 05/27/18 05/26/18 04:34 04:34 19:58 WBC 36.2 H* RBC 3.52 L Hgb 11.4 L Hct 34.7 L MCV 98.6 MCH 32.4 MCHC 32.9 RDW 15.6 H Plt Count 67 L MPV 12.5 H Reticulocyte # Seg Neutrophils % 6.0 Band Neutrophils % 1.0 Lymphocytes % 58.0 Monocytes % 2.0 Eosinophils % Myelocytes % 4.0 H Blast Cells % 28.0 H Neutrophils # 2.5 Lymphocytes # 21.0 H Monocytes # 0.7 Eosinophils # Nucleated RBCs/100 WBC Reactive Lymphocytes Present A Smudge Cells Present A Platelet Estimate Decreased L Percent Retic Immature Retic Fraction Retic Hgb Equivalent Sodium 140 Potassium 4.0 Chloride 109 H Carbon Dioxide 26 BUN 18 Creatinine 0.84 Est GFR ( Amer) > 60 Est GFR (Non-Af Amer) > 60 BUN/Creatinine Ratio 21 Glucose 106 H Calculated Osmolality 292 Lactic Acid Uric Acid Calcium 8.6 Phosphorus Magnesium Iron % Saturation Transferrin Total Bilirubin Direct Bilirubin Indirect Bilirubin AST ALT Alkaline Phosphatase Lactate Dehydrogenase Serum Total Protein Albumin Globulin Albumin/Globulin Ratio Vitamin B12 Folate Urine Color Yellow Urine Clarity Clear Urine pH 6.0 Ur Specific [place] 1.025 Urine Protein Negative Urine Glucose (UA) Normal Urine Ketones Negative Urine Blood Negative Urine Nitrite Negative Urine Bilirubin Negative Urine Urobilinogen Normal Ur Leukocyte Esterase Negative Ur Culture Indicated? NO 05/26/18 05/26/18 05/26/18 19:43 19:43 19:43 WBC 39.9 H* RBC 3.90 L Hgb 12.5 L Hct 38.4 MCV 98.5 MCH 32.1 MCHC 32.6 RDW 15.4 H Plt Count 76 L MPV 12.5 H Reticulocyte # Seg Neutrophils % 18.0 Band Neutrophils % Lymphocytes % 78.0 Monocytes % 2.0 Eosinophils % 2.0 Myelocytes % Blast Cells % Neutrophils # 7.2 Lymphocytes # 31.1 H Monocytes # 0.8 Eosinophils # 0.8 H Nucleated RBCs/100 WBC 0.1 H Reactive Lymphocytes Present A Smudge Cells Present A Platelet Estimate Decreased L Percent Retic Immature Retic Fraction Retic Hgb Equivalent Sodium 142 Potassium 4.1 Chloride 107 Carbon Dioxide 29 BUN 22 Creatinine 1.15 Est GFR ( Amer) > 60 Est GFR (Non-Af Amer) > 60 BUN/Creatinine Ratio 19 Glucose 121 H Calculated Osmolality 299 Lactic Acid 1.2 Uric Acid 8.7 H Calcium 9.4 Phosphorus 3.4 Magnesium 2.2 Iron % Saturation Transferrin Total Bilirubin 0.5 Direct Bilirubin 0.0 Indirect Bilirubin 0.5 AST 17 ALT 19 Alkaline Phosphatase 75 Lactate Dehydrogenase 286 H Serum Total Protein 6.4 Albumin 4.3 Globulin 2.1 L Albumin/Globulin Ratio 2.0 Vitamin B12 Folate Urine Color Urine Clarity Urine pH Ur Specific [place] Urine Protein Urine Glucose (UA) Urine Ketones Urine Blood Urine Nitrite Urine Bilirubin Urine Urobilinogen Ur Leukocyte Esterase Ur Culture Indicated? Consult Discharge Plan - Plan Referrals: Kalen Hart DO [Primary Care Provider] - Inpatient Charges Provider: Dr. Amy Engle Consult - Inpatient: [id number]
--- NOTE | 2018-05-28 10:51 | Urology Progress Note ---
Date of Encounter: 05/28/18 Time of Encounter: 10:48 - Assessment and Plan (1) Bilateral hydronephrosis Current Visit: Yes Status: Acute Assessment and plan: Retroperitioneal and bone marrow biopsies pending for this week. Plan: Patient wishes to determine timing of stents post biopsy and definitive treatment plan/prognosis from Med/Onc. (2) Bladder wall thickening Current Visit: Yes Status: Acute (3) Scrotal swelling Current Visit: Yes Status: Acute Progress Note Subjective: no new complaints Objective Initial Vital Signs Temp Pulse Resp BP Pulse Ox 97.7 F 62 18 166/82 99 05/26/18 18:46 05/26/18 18:46 05/26/18 18:46 05/26/18 18:46 05/26/18 18:46 - General physical appearance Present: well nourished, no distress - Respiratory Present: normal respiratory effort - Musculoskeletal Present: normal posture - Psychiatric Present: oriented to time, oriented to person, oriented to place - Labs 05/27/18 04:34 05/27/18 04:34 Consult Discharge Plan - Plan Referrals: Kalen Hart DO [Primary Care Provider] -
[2018-05-28 14:40] LABS: Hematocrit 38.3 % (37.5-50.1); Hemoglobin 12.3 g/dL (12.9-16.9); Mean Corpuscular HGB Conc 32.1 g/dL (31.6-35.5); Mean Corpuscular Hemoglobin 31.6 pg (28.0-33.3); Mean Corpuscular Volume 98.5 fL (83.0-100.0); Mean Platelet Volume 12.4 fL (9.4-12.4); Red Blood Count 3.89 M/mcL (4.19-5.50); Red Cell Distribution Width 15.5 % (11.5-14.5)
[2018-05-28] MEDS: Cyanocobalamin (B-12) 1,000 MCG/ML VIAL IM SCH (14:40)
[2018-05-28 14:41] LABS: Platelet Count 75 K/mcL (140-400)
[2018-05-28 14:52] LABS: INR 1.2; Prothrombin Time 13.6 Seconds (9.4-12.1)
[2018-05-28 14:58] LABS: BUN/Creatinine Ratio 17 (6-26); Blood Urea Nitrogen 17 mg/dL (8-23); Calcium 8.6 mg/dL (8.6-10.3); Carbon Dioxide 25 mEq/L (23-29); Chloride 109 mEq/L (98-107); Glucose 187 mg/dL (70-105); Osmolality,Calculated 296 (280-300); Phosphorous 2.7 mg/dL (2.7-4.5); Sodium 140 mEq/L (136-145); eGFR For Non-African Americans > 60 (> 60)
[2018-05-28 15:01] LABS: Eosinophils # 0.6 K/mcL (0.0-0.6); Lymphocytes # 26.2 K/mcL (0.6-4.6); Neutrophils # 2.3 K/mcL (1.6-8.9); Platelet Estimate Decreased (Normal); Smudge Cells Present (Not Present)
[2018-05-28 16:30] LABS: Hepatitis B Surface Antigen Nonreactive (Nonreactive); Hepatitis C Virus Antibody Nonreactive (Nonreactive)
[2018-05-29] MEDS: *HR* Heparin 5,000 UNIT/ML VIAL SQ SCH ×4 (00:18→21:45)
[2018-05-29] MEDS: 0.9 % Sodium Chloride 1,000 ML IVC SCH ×3 (04:07→21:44)
[2018-05-29 06:34] LABS: Mean Corpuscular Hemoglobin 31.6 pg (28.0-33.3)
[2018-05-29 06:36] LABS: Hematocrit 37.8 % (37.5-50.1); Hemoglobin 12.1 g/dL (12.9-16.9); Mean Corpuscular Volume 98.7 fL (83.0-100.0); Mean Platelet Volume 13.2 fL (9.4-12.4); Red Blood Count 3.83 M/mcL (4.19-5.50); Red Cell Distribution Width 15.8 % (11.5-14.5)
[2018-05-29 06:41] LABS: INR 1.3; Prothrombin Time 14.2 Seconds (9.4-12.1)
[2018-05-29 06:59] LABS: BUN/Creatinine Ratio 18 (6-26); Blood Urea Nitrogen 17 mg/dL (8-23); Calcium 8.6 mg/dL (8.6-10.3); Carbon Dioxide 25 mEq/L (23-29); Chloride 110 mEq/L (98-107); Glucose 86 mg/dL (70-105); Osmolality,Calculated 295 (280-300); Potassium 4.1 mEq/L (3.5-5.1); Sodium 142 mEq/L (136-145); eGFR For Non-African Americans > 60 (> 60)
[2018-05-29 07:00] LABS: Uric Acid 7.4 mg/dL (2.3-7.6)
[2018-05-29 07:25] LABS: Platelet Count 68 K/mcL (140-400)
[2018-05-29 08:25] LABS: Eosinophils # 1.3 K/mcL (0.0-0.6); Lymphocytes # 24.4 K/mcL (0.6-4.6); Monocytes # 2.5 K/mcL (0.0-1.3); Neutrophils # 3.1 K/mcL (1.6-8.9)
[2018-05-29 08:26] LABS: Reactive Lymphocytes Present (Not Present); Smudge Cells Present (Not Present)
--- NOTE | 2018-05-29 08:58 | Urology Progress Note ---
<Sara Carpenter N - Last Filed: 05/29/18 08:55> Date of Encounter: 05/29/18 Time of Encounter: 08:20 - Assessment and Plan (1) Bilateral hydronephrosis Current Visit: Yes Status: Acute Assessment and plan: Patient is a 63-year-old male who presents with history of bilateral hydronephrosis secondary to substantial pelvic adenopathy. At this time, patient does not wish to proceed with ureteral stent placement. Patient prefers to wait until both lymph node biopsy and bone marrow biopsy are performed. Patient does agree to follow up as an outpatient and possibly schedule stent placement at that time. (2) Bladder wall thickening Current Visit: Yes Status: Acute Assessment and plan: Patient is a 63-year-old male who presents with a history of bladder wall thickening. Bladder wall thickening is most likely related to bladder outlet obstruction, BPH. We will, however, further investigate with cystoscopy. Cyst oscopy will also be necessary in order to facilitate stent placement. (3) CLL (chronic lymphocytic leukemia) Current Visit: Yes Status: Chronic Progress Note Subjective: no new complaints Narrative: Patient seen and examined sitting upright in chair in no apparent distress. Patient reports no new complaints. Patient is voiding without difficulty. Patient states CT guided lymph node biopsy is scheduled for later today. Objective Initial Vital Signs Temp Pulse Resp BP Pulse Ox 97.7 F 62 18 166/82 99 05/26/18 18:46 05/26/18 18:46 05/26/18 18:46 05/26/18 18:46 05/26/18 18:46 - General physical appearance Present: well developed, no distress - Respiratory Present: normal expansion, normal respiratory effort - Integumentary Present: no rash - Musculoskeletal Present: normal posture - Psychiatric Present: oriented to time, oriented to person, oriented to place, speech is normal, memory intact - Labs 05/29/18 05:50 05/29/18 05:50 Diabetes panel 05/28/18 05/29/18 Range/Units 14:25 05:50 Sodium 140 142 (136-145) mEq/L Potassium 4.0 4.1 (3.5-5.1) mEq/L Chloride 109 H 110 H (98-107) mEq/L Carbon Dioxide 25 25 (23-29) mEq/L BUN 17 17 (8-23) mg/dL Creatinine 1.01 0.96 (0.70-1.30) mg/dL Glucose 187 H 86 (70-105) mg/dL Calcium 8.6 8.6 (8.6-10.3) mg/dL Calcium panel 05/28/18 05/28/18 05/29/18 Range/Units 14:25 14:25 05:50 Calcium 8.6 8.6 (8.6-10.3) mg/dL Phosphorus 2.7 3.0 (2.7-4.5) mg/dL Pituitary panel 05/28/18 05/29/18 Range/Units 14:25 05:50 Sodium 140 142 (136-145) mEq/L Potassium 4.0 4.1 (3.5-5.1) mEq/L Chloride 109 H 110 H (98-107) mEq/L Carbon Dioxide 25 25 (23-29) mEq/L BUN 17 17 (8-23) mg/dL Creatinine 1.01 0.96 (0.70-1.30) mg/dL Glucose 187 H 86 (70-105) mg/dL Calcium 8.6 8.6 (8.6-10.3) mg/dL Adrenal panel 05/28/18 05/29/18 Range/Units 14:25 05:50 Sodium 140 142 (136-145) mEq/L Potassium 4.0 4.1 (3.5-5.1) mEq/L Chloride 109 H 110 H (98-107) mEq/L Carbon Dioxide 25 25 (23-29) mEq/L BUN 17 17 (8-23) mg/dL Creatinine 1.01 0.96 (0.70-1.30) mg/dL Glucose 187 H 86 (70-105) mg/dL Calcium 8.6 8.6 (8.6-10.3) mg/dL Consult Discharge Plan - Plan Referrals: Kalen Hart DO [Primary Care Provider] - <Kyler Ramos - Last Filed: 05/29/18 17:45> Date of Encounter: 05/29/18 - Assessment and Plan (1) Bilateral hydronephrosis Current Visit: Yes Status: Acute Assessment and plan: Patient seen and examined independently. Agree with assessment and plan of SAM Carpenter (2) Bladder wall thickening Current Visit: Yes Status: Acute (3) Scrotal swelling Current Visit: Yes Status: Acute Objective Initial Vital Signs Temp Pulse Resp BP Pulse Ox 97.7 F 62 18 166/82 99 05/26/18 18:46 05/26/18 18:46 05/26/18 18:46 05/26/18 18:46 05/26/18 18:46 - Labs 05/29/18 16:33 05/29/18 16:33 Diabetes panel 05/28/18 05/29/18 05/29/18 Range/Units 14:25 05:50 16:33 Sodium 140 142 141 (136-145) mEq/L Potassium 4.0 4.1 3.8 (3.5-5.1) mEq/L Chloride 109 H 110 H 109 H (98-107) mEq/L Carbon Dioxide 25 25 26 (23-29) mEq/L BUN 17 17 15 (8-23) mg/dL Creatinine 1.01 0.96 0.96 (0.70-1.30) mg/dL Glucose 187 H 86 132 H (70-105) mg/dL Calcium 8.6 8.6 8.6 (8.6-10.3) mg/dL AST 20 (13-39) Units/L ALT 18 (7-52) Units/L Alkaline Phosphatase 73 (34-104) Units/L Albumin 4.0 (3.5-5.7) g/dL Calcium panel 05/28/18 05/29/18 05/29/18 Range/Units 14:25 05:50 16:33 Calcium 8.6 8.6 8.6 (8.6-10.3) mg/dL Phosphorus 3.0 (2.7-4.5) mg/dL Albumin 4.0 (3.5-5.7) g/dL 05/29/18 Range/Units 16:33 Calcium (8.6-10.3) mg/dL Phosphorus 2.6 L (2.7-4.5) mg/dL Albumin (3.5-5.7) g/dL Pituitary panel 05/28/18 05/29/18 05/29/18 Range/Units 14:25 05:50 16:33 Sodium 140 142 141 (136-145) mEq/L Potassium 4.0 4.1 3.8 (3.5-5.1) mEq/L Chloride 109 H 110 H 109 H (98-107) mEq/L Carbon Dioxide 25 25 26 (23-29) mEq/L BUN 17 17 15 (8-23) mg/dL Creatinine 1.01 0.96 0.96 (0.70-1.30) mg/dL Glucose 187 H 86 132 H (70-105) mg/dL Calcium 8.6 8.6 8.6 (8.6-10.3) mg/dL Adrenal panel 05/28/18 05/29/18 05/29/18 Range/Units 14:25 05:50 16:33 Sodium 140 142 141 (136-145) mEq/L Potassium 4.0 4.1 3.8 (3.5-5.1) mEq/L Chloride 109 H 110 H 109 H (98-107) mEq/L Carbon Dioxide 25 25 26 (23-29) mEq/L BUN 17 17 15 (8-23) mg/dL Creatinine 1.01 0.96 0.96 (0.70-1.30) mg/dL Glucose 187 H 86 132 H (70-105) mg/dL Calcium 8.6 8.6 8.6 (8.6-10.3) mg/dL Total Bilirubin 0.5 (0.3-1.0) mg/dL AST 20 (13-39) Units/L ALT 18 (7-52) Units/L Alkaline Phosphatase 73 (34-104) Units/L Albumin 4.0 (3.5-5.7) g/dL
[2018-05-29] MEDS: Cyanocobalamin (B-12) 1,000 MCG/ML VIAL IM SCH (09:58)
--- NOTE | 2018-05-29 10:22 | Internal Med Progress Note ---
<Kenzie Balderas U - Last Filed: 05/29/18 14:43> Hospitalist Progress Note - Encounter Date of Encounter: 05/29/18 Time of Encounter: 09:45 - Subjective Interval History: Pt seen at bedside today with no acute complaints. Pt does not have abdominal pain anymore. Lymph nodes are still palpable and nontender. Pt is waiting on a bone marrow biopsy and lymph node biopsy. CT guided lymph node biopsy is scheduled for 05/29, however CT is currently down. Bone marrow biopsy is scheduled for 05/30. - Exam Vitals: Temp Pulse Resp BP Pulse Ox 97.9 F 53 15 155/89 97 05/29/18 06:26 05/29/18 06:26 05/29/18 06:26 05/29/18 06:26 05/29/18 06:26 Exam: GENERAL: Well-developed, well-nourished adult male in no acute distress. HEENT: Atraumatic and normocephalic. NECK: Soft and nontender. Nontender lymphadenopathy of bilateral submandibular and left supraclavicular nodes present. CARDIOVASCULAR: Regular rate and rhythm. S1 and S2 present. No murmurs, gallops, or rubs. RESPIRATORY: CTA bilaterally. Chest rises and falls symmetrically with respiration. No accessory muscle use noted. GASTROINTESTINAL: Active bowel sounds x 4 quadrants. Abdomen is soft, nontender, and nondistended. No palpable organomegaly present. GENITOURINARY: Scrotal swelling and erythema present that is greater on the right. EXTREMITIES: No clubbing, cyanosis, or edema present. SKIN: Warm, dry, and intact. NEUROLOGIC: Patient answers questions appropriately and is cooperative with exam. No apparent focal deficits. PSYCHIATRIC: Slightly flat affect. Patient appears mildly anxious. - Assessment and Plan (1) Scrotal swelling Current Visit: Yes Status: Acute Assessment and Plan: Likely secondary to decreased lymphatic drainage due to progressive generalized lymphadenopathy Continue IV fluids. 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 Oncology on board. Brain MRI negative for metastatic disease (5) Bladder wall thickening Current Visit: Yes Status: Acute Assessment and Plan: Patient denies any dysuria, urinary frequency, or inability to void. Has significant hydronephrosis. Urology consulted and appreciate recs (6) Leukocytosis Current Visit: Yes Status: Chronic Assessment and Plan: Likely secondary to lymphoma. Oncology following. Monitor CBC. Follow up flow cytometry, retic count, anemia workup (7) Bilateral hydronephrosis Current Visit: Yes Status: Acute Assessment and Plan: -Urology plan for placement of bilateral stents - Pt will get this done as outpatient (8) DVT prophylaxis Current Visit: Yes Status: Acute Assessment and Plan: - Heparin 5000units SQ Q8H DVT Prophylaxis: - Heparin 5000units SQ Q8H - Time Spent with Patient Total time spent is greater than 50% in coordination of care (as documented) at patient's floor/unit and/or counseling patient: Plan of Care Discussed with: patient Internal Medicine: Result - Labs CBC & Chem 7: 05/29/18 05:50 05/29/18 05:50 Labs: Short CBC 05/28/18 05/29/18 Range/Units 14:25 05:50 WBC 29.1 H 31.3 H* (4.3-11.1) K/mcL Hgb 12.3 L 12.1 L (12.9-16.9) g/dL Hct 38.3 37.8 (37.5-50.1) % Plt Count 75 L 68 L (140-400) K/mcL Neutrophils # 2.3 3.1 (1.6-8.9) K/mcL BMP 05/28/18 05/29/18 14:25 05:50 Sodium 140 142 Potassium 4.0 4.1 Chloride 109 H 110 H Carbon Dioxide 25 25 BUN 17 17 Creatinine 1.01 0.96 Glucose 187 H 86 Calcium 8.6 8.6 - ABG Interpretation ABG results: PT/INR, D-dimer PT 14.2 Seconds (9.4-12.1) H 05/29/18 05:50 Consult Discharge Plan - Plan Referrals: Kalen Hart DO [Primary Care Provider] - <Raúl Lane - Last Filed: 05/29/18 16:57> Hospitalist Progress Note - Encounter Date of Encounter: 05/29/18 - Exam Vitals: Temp Pulse Resp BP Pulse Ox 97.8 F 55 14 135/77 96 05/29/18 14:29 05/29/18 14:29 05/29/18 14:29 05/29/18 14:29 05/29/18 14:29 - Assessment and Plan (1) Scrotal swelling Current Visit: Yes Status: Acute (2) CLL (chronic lymphocytic leukemia) Current Visit: Yes Status: Chronic (3) Hypothyroidism (acquired) Current Visit: No Status: Chronic (4) Abdominal lymphadenopathy Current Visit: Yes Status: Acute (5) Bladder wall thickening Current Visit: Yes Status: Acute (6) Leukocytosis Current Visit: Yes Status: Acute (7) Bilateral hydronephrosis Current Visit: Yes Status: Acute (8) DVT prophylaxis Current Visit: Yes Status: Acute - Time Spent with Patient Total time spent is greater than 50% in coordination of care (as documented) at patient's floor/unit and/or counseling patient: Internal Medicine: Result - Labs CBC & Chem 7: 05/29/18 05:50 05/29/18 05:50 Labs: Short CBC 05/29/18 Range/Units 05:50 WBC 31.3 H* (4.3-11.1) K/mcL Hgb 12.1 L (12.9-16.9) g/dL Hct 37.8 (37.5-50.1) % Plt Count 68 L (140-400) K/mcL Neutrophils # 3.1 (1.6-8.9) K/mcL BMP 05/28/18 05/29/18 14:25 05:50 Sodium 140 142 Potassium 4.0 4.1 Chloride 109 H 110 H Carbon Dioxide 25 25 BUN 17 17 Creatinine 1.01 0.96 Glucose 187 H 86 Calcium 8.6 8.6 - ABG Interpretation ABG results: PT/INR, D-dimer PT 14.2 Seconds (9.4-12.1) H 05/29/18 05:50 - Impressions Impressions Lymph Node Biopsy/Excision 05/29/18 00:00 IMPRESSION: 1. Ultrasound-guided core needle biopsy left axillary lymphadenopathy as discussed above. D/ / Leroy Woods MD / Leroy Woods MD Interpreting Provider: Leroy Woods MD - Attending Attestation i have seen and independently assessed this patient and I agree with plamn per medical student 63 year old male with CLL presenting with abdominal pain and right side scrotal swelling Exam GENERAL: Well-developed, well-nourished adult male in no acute distress. HEENT: Atraumatic and normocephalic. NECK: Soft and nontender. Nontender lymphadenopathy of bilateral submandibular and left supraclavicular nodes present. CARDIOVASCULAR: Regular rate and rhythm. S1 and S2 present. No murmurs, gallops, or rubs. RESPIRATORY: CTA bilaterally. Chest rises and falls symmetrically with respiration. No accessory muscle use noted. GASTROINTESTINAL: Active bowel sounds x 4 quadrants. Abdomen is soft, nontender, and nondistended. No palpable organomegaly present. GENITOURINARY: Scrotal swelling and erythema present that is greater on the right. EXTREMITIES: No clubbing, cyanosis, or edema present. SKIN: Warm, dry, and intact. NEUROLOGIC: Patient answers questions appropriately and is cooperative with exam. No apparent focal deficits. Plan Generalized lymphadenopathy with scrotal edema. 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 Went for lymph node biopsy today. Started on IV steroids. Plan for bone marrow biopsy in am. Oncology following. monitor daily electrolytes and uric acid. Continue Iv fluids and allopurinol <Kenzie Balderas U - Last Filed: 05/29/18 14:43> (6) Leukocytosis Qualifiers: Leukocytosis type: unspecified Qualified Code(s): D72.829 - Elevated white blood cell count, unspecified <Raúl Lane A - Last Filed: 05/29/18 16:57> (6) Leukocytosis Qualifiers: Leukocytosis type: unspecified Qualified Code(s): D72.829 - Elevated white blood cell count, unspecified
--- NOTE | 2018-05-29 10:23 | Oncology Inp Progress Note ---
<Sheila Sexton - Last Filed: 05/29/18 16:11> Date of Encounter: 05/29/18 Time of Encounter: 10:23 (1) Generalized lymphadenopathy Current Visit: Yes Status: Acute Assessment and plan: Progressive generalized MARYJANE, splenomegaly, scrotal swelling and premature cells on differential concerning for Magallon's transformation vs transformation to leukemia Patient has CLL, concern for progression to high grade lymphoma Patient had US guided LN biopsy today, will have CT guided BM biopsy tomorrow (CT Scanner down today) HIV, Hep B, Hep C non-reactive Plan- -LN biopsy-pathology pending -BM bx planned for tomorrow -Will need FISH, cytogenetics and flow cytometry on both LN and BM biopsies. -Continue IVF: NS 0.9% at 100cc/her -Continue allopurinal 300mg BID -Q12h CBC, CMP, LDH, Pt/INR, Fibrinogen, Mg, Phos and uric acid -Will start solumedrol 125mg q8hr x24 hr, then q12 hr x 24 hr then decrease to 100mg and taper from there. Will add SSI. -Pending labs: peripheral blood flow cytometery. PCR BCR-ABL, FISH t (9;22). (2) Anemia Current Visit: Yes Status: Acute Assessment and plan: Anemia likely secondary to underlying CLL LDH 286; Fe 95, iron saturation 36% transferrin 188. Folic acid 22.1 Vit B12 233 AUBRIE negative Plan: Continue Vit B12 1000 mcg SQ or IM daily -Pending labs: haptoglobin, SPEP, serum immunoelectrophoresis, serum free K/L light chains, Immunoglobulins (IgA, IgM, IgG) Qualifiers: Anemia type: unspecified type Qualified Code(s): D64.9 - Anemia, unspecified (3) CLL (chronic lymphocytic leukemia) Current Visit: Yes Status: Chronic Assessment and plan: per above (4) Bilateral hydronephrosis Current Visit: Yes Status: Acute Assessment and plan: Left greater than right on CT images. Secondary to massive retroperitoneal adenopathy. Renal function normal at this time. Urology feels prophylactic placement of bilateral stents is the most appropriate course of action until his adenopathy responds to systemic therapy, however pt wishes to hold off on procedure pending bx results and heme/onc recs. Plan: BM biopsy tomorrow LN biopsy today-pathology pending Plan for stents based on results and pt wishes. (5) Scrotal swelling Current Visit: Yes Status: Acute Assessment and plan: Likely secondary to retroperitoneal, pelvic and inguinal adenopathy LN biopsy done today, will start steroids, hopefully this will help resolve. Plan: 125mg IV solumedrol Q8hr (6) Bladder wall thickening Current Visit: Yes Status: Acute Assessment and plan: Per urology, likely the result of voiding against resistance/BPH. Will consider cystoscopy in near future to rule out pathology. Oncology: Subj Interval history: Mr. Sparrow is a 62 y/o WM w/h/o Lee stage IV CLL. Normal cytogenetics. Patient presented with significant cytopenias including thrombocytopenia necessitating treatment. He is status post 2 cycles of bendamustine and Rituxan followed by 2 cycles or Rituxan alone. He completed treatment 08/01/2014. He has been under observation since that time. 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 S/P bilateral partial thyroidectomy 02/14/14 with pT2NX disease. Followed by [facility] 04/05/14. Right level V neck recurrence s/p right neck dissection 09/12/14 followed by [facility] 10/23/14. 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 The pain is associated with inguinal lymphadenopathy and scrotal swelling, particularly on the right. The pain was triggered with certain movements, and comes and goes. The patient however denies any associated pain or difficulty with voiding, dysuria, or urinary frequency. CT of the abdomen and pelvis demonstrated massive adenopathy in both areas was consistent with lymphoma. Other abnormal findings included splenomegaly, irregular lobulated subpleural mass with spiculated margins in the posterior right lower lobe, bilateral hydronephrosis greater on the left, and thickening of the wall of the urinary bladder. Subsequent chest CT demonstrated extensive adenopathy consistent with a history of lymphoma and a sed solid 3-4 mm left upper lobe nodule. CT of the neck demonstrated bilateral lymphadenopathy in the neck, axilla, and superior mediastinum. Interval history: The patient had a LN biopsy this morning. He reports that his abdominal pain and inguinal pain continue to improve. He has some pain at the site of biopsy. He is asking when he can go home, he has several appointments on that he needs to keep. He denies any fevers, chills, chest pain, SOB, N/V, or urinary/bowel issues. He is not sure if his scrotum is still swollen, he thinks it may be better. - Constitutional Vitals: Vital Signs Temp Pulse Resp BP Pulse Ox 05/29/18 06:26 97.9 F 53 15 155/89 97 05/29/18 04:11 97.9 F 51 11 153/86 98 05/28/18 20:08 97.6 F 50 12 147/76 97 05/28/18 16:55 97.5 F L 60 16 145/84 97 05/28/18 14:31 97.7 F 56 14 135/79 98 05/28/18 10:37 97.8 F 48 16 146/81 97 Intake and Output 05/28/18 05/29/18 05/29/18 23:59 07:59 15:59 Intake Total 1240 / 1240 1000 / 1000 743 / 743 Output Total 300 / 300 0 / 0 Balance 940 / 940 1000 / 1000 743 / 743 Intake: IV Fluids 1000 / 1000 1000 / 1000 743 / 743 0.9 % Sodium Chloride 1,000 ML 1000 / 1000 1000 / 1000 743 / 743 @ 125 mls/hr IVC .Q8H DOMONIQUE Rx#: [id number] Oral 240 / 240 0 / 0 Output: Urine 300 / 300 0 / 0 Other: Meal Dinner NPO Percent of Meal Consumed 100% # Voids 2 Weight 82.1 kg Blood Glucose* 75 Patient Weight 05/29/18 23:59 Weight 82.1 kg General appearance: average body habitus, cooperative, no acute distress - Head Head exam: Present: atraumatic, normal inspection - Neck Neck exam: Present: lymphadenopathy - Respiratory Respiratory exam: Present: CTAB. Absent: accessory muscle use, rales, respiratory distress, rhonchi, stridor, wheezes - Cardiovascular Cardiovascular exam: Present: RRR, +S1, +S2. Absent: clicks, diastolic murmur, gallop, rubs, systolic murmur - GI/Abdominal GI/Abdominal exam: Present: normal bowel sounds, soft. Absent: organomegaly, tenderness - exam: Present: scrotal swelling - Extremities Exam Extremities exam: Present: normal capillary refill, normal inspection. Absent: calf tenderness, pedal edema - Neurological Exam Neurological exam: Present: alert, no focal deficits. Absent: speech deficit - Psychiatric Psychiatric exam: Present: normal affect, normal mood - Skin Skin exam: Present: dry, intact, normal color, warm. Absent: rash Oncology: Obj Data - Labs CBC & Chem 7: 05/29/18 05:50 05/29/18 05:50 Labs: Laboratory Results - last 24 hr 05/28/18 05/28/18 05/28/18 05:52 14:19 14:25 WBC 29.1 H RBC 3.89 L Hgb 12.3 L Hct 38.3 MCV 98.5 MCH 31.6 MCHC 32.1 RDW 15.5 H Plt Count 75 L MPV 12.4 Seg Neutrophils % 8.0 Band Neutrophils % Lymphocytes % 90.0 Monocytes % Eosinophils % 2.0 Neutrophils # 2.3 Lymphocytes # 26.2 H Monocytes # Eosinophils # 0.6 Reactive Lymphocytes Smudge Cells Present A Platelet Estimate Decreased L PT INR Fibrinogen 201 Sodium Potassium Chloride Carbon Dioxide BUN Creatinine Est GFR ( Amer) Est GFR (Non-Af Amer) BUN/Creatinine Ratio Glucose POC Glucose 70 Calculated Osmolality Uric Acid Calcium Phosphorus Magnesium Lactate Dehydrogenase Hep Bs Antigen Hep Bs Antibody Hepatitis C Ab Screen AUBRIE, Poly Interpret 05/28/18 05/28/18 05/28/18 14:25 14:25 14:25 WBC RBC Hgb Hct MCV MCH MCHC RDW Plt Count MPV Seg Neutrophils % Band Neutrophils % Lymphocytes % Monocytes % Eosinophils % Neutrophils # Lymphocytes # Monocytes # Eosinophils # Reactive Lymphocytes Smudge Cells Platelet Estimate PT 13.6 H INR 1.2 Fibrinogen Sodium 140 Potassium 4.0 Chloride 109 H Carbon Dioxide 25 BUN 17 Creatinine 1.01 Est GFR ( Amer) > 60 Est GFR (Non-Af Amer) > 60 BUN/Creatinine Ratio 17 Glucose 187 H POC Glucose Calculated Osmolality 296 Uric Acid Calcium 8.6 Phosphorus Magnesium Lactate Dehydrogenase 255 Hep Bs Antigen Hep Bs Antibody Hepatitis C Ab Screen AUBRIE, Poly Interpret 05/28/18 05/28/18 05/28/18 14:25 14:25 14:25 WBC RBC Hgb Hct MCV MCH MCHC RDW Plt Count MPV Seg Neutrophils % Band Neutrophils % Lymphocytes % Monocytes % Eosinophils % Neutrophils # Lymphocytes # Monocytes # Eosinophils # Reactive Lymphocytes Smudge Cells Platelet Estimate PT INR Fibrinogen Sodium Potassium Chloride Carbon Dioxide BUN Creatinine Est GFR ( Amer) Est GFR (Non-Af Amer) BUN/Creatinine Ratio Glucose POC Glucose Calculated Osmolality Uric Acid 7.7 H Calcium Phosphorus 2.7 Magnesium 2.0 Lactate Dehydrogenase Hep Bs Antigen Nonreactive Hep Bs Antibody 0.10 Hepatitis C Ab Screen Nonreactive AUBRIE, Poly Interpret 05/28/18 05/29/18 05/29/18 14:25 05:50 05:50 WBC 31.3 H* RBC 3.83 L Hgb 12.1 L Hct 37.8 MCV 98.7 MCH 31.6 MCHC 32.0 RDW 15.8 H Plt Count 68 L MPV 13.2 H Seg Neutrophils % 8.0 Band Neutrophils % 2.0 Lymphocytes % 78.0 Monocytes % 8.0 Eosinophils % 4.0 Neutrophils # 3.1 Lymphocytes # 24.4 H Monocytes # 2.5 H Eosinophils # 1.3 H Reactive Lymphocytes Present A Smudge Cells Present A Platelet Estimate PT INR Fibrinogen Sodium 142 Potassium 4.1 Chloride 110 H Carbon Dioxide 25 BUN 17 Creatinine 0.96 Est GFR ( Amer) > 60 Est GFR (Non-Af Amer) > 60 BUN/Creatinine Ratio 18 Glucose 86 POC Glucose Calculated Osmolality 295 Uric Acid Calcium 8.6 Phosphorus 3.0 Magnesium 2.0 Lactate Dehydrogenase Hep Bs Antigen Hep Bs Antibody Hepatitis C Ab Screen AUBRIE, Poly Interpret NEG 05/29/18 05/29/18 05/29/18 05:50 05:50 05:54 WBC RBC Hgb Hct MCV MCH MCHC RDW Plt Count MPV Seg Neutrophils % Band Neutrophils % Lymphocytes % Monocytes % Eosinophils % Neutrophils # Lymphocytes # Monocytes # Eosinophils # Reactive Lymphocytes Smudge Cells Platelet Estimate PT 14.2 H INR 1.3 Fibrinogen Sodium Potassium Chloride Carbon Dioxide BUN Creatinine Est GFR ( Amer) Est GFR (Non-Af Amer) BUN/Creatinine Ratio Glucose POC Glucose 75 Calculated Osmolality Uric Acid 7.4 Calcium Phosphorus Magnesium Lactate Dehydrogenase 258 Hep Bs Antigen Hep Bs Antibody Hepatitis C Ab Screen AUBRIE, Poly Interpret - ABG Interpretation ABG results: PT/INR, D-dimer PT 14.2 Seconds (9.4-12.1) H 05/29/18 05:50 Consult Discharge Plan - Plan Referrals: Kalen Hart DO [Primary Care Provider] - <Noam Engle - Last Filed: 05/29/18 17:19> Date of Encounter: 05/29/18 - Constitutional Vitals: Vital Signs Temp Pulse Resp BP Pulse Ox 05/29/18 14:29 97.8 F 55 14 135/77 96 05/29/18 10:20 97.7 F 54 14 163/93 99 05/29/18 06:26 97.9 F 53 15 155/89 97 05/29/18 04:11 97.9 F 51 11 153/86 98 05/28/18 20:08 97.6 F 50 12 147/76 97 Intake and Output 05/29/18 05/29/18 05/30/18 08:59 16:59 00:59 Intake Total 1000 / 1000 1260 / 1260 Output Total 0 / 0 275 / 275 Balance 1000 / 1000 985 / 985 Intake: IV Fluids 1000 / 1000 900 / 900 0.9 % Sodium Chloride 1,000 ML 1000 / 1000 900 / 900 @ 125 mls/hr IVC .Q8H DOMONIQUE Rx#: [id number] Oral 0 / 0 360 / 360 Output: Urine 0 / 0 275 / 275 Other: Meal NPO Lunch Percent of Meal Consumed 100% # Voids 2 1 Weight 82.1 kg Blood Glucose* 75 116 Patient Weight 05/30/18 00:59 Weight 82.1 kg Oncology: Obj Data - Labs CBC & Chem 7: 05/29/18 05:50 05/29/18 05:50 Labs: Laboratory Results - last 24 hr 05/28/18 05/28/18 05/28/18 05:52 14:25 14:25 WBC RBC Hgb Hct MCV MCH MCHC RDW Plt Count MPV Seg Neutrophils % Band Neutrophils % Lymphocytes % Monocytes % Eosinophils % Neutrophils # Lymphocytes # Monocytes # Eosinophils # Reactive Lymphocytes Smudge Cells PT INR Sodium 140 Potassium 4.0 Chloride 109 H Carbon Dioxide 25 BUN 17 Creatinine 1.01 Est GFR ( Amer) > 60 Est GFR (Non-Af Amer) > 60 BUN/Creatinine Ratio 17 Glucose 187 H POC Glucose 70 Calculated Osmolality 296 Uric Acid Calcium 8.6 Phosphorus Magnesium Ferritin 398 H Lactate Dehydrogenase HIV Ag/Ab Combo Qual Nonreactive 05/29/18 05/29/18 05/29/18 05:50 05:50 05:50 WBC 31.3 H* RBC 3.83 L Hgb 12.1 L Hct 37.8 MCV 98.7 MCH 31.6 MCHC 32.0 RDW 15.8 H Plt Count 68 L MPV 13.2 H Seg Neutrophils % 8.0 Band Neutrophils % 2.0 Lymphocytes % 78.0 Monocytes % 8.0 Eosinophils % 4.0 Neutrophils # 3.1 Lymphocytes # 24.4 H Monocytes # 2.5 H Eosinophils # 1.3 H Reactive Lymphocytes Present A Smudge Cells Present A PT 14.2 H INR 1.3 Sodium 142 Potassium 4.1 Chloride 110 H Carbon Dioxide 25 BUN 17 Creatinine 0.96 Est GFR ( Amer) > 60 Est GFR (Non-Af Amer) > 60 BUN/Creatinine Ratio 18 Glucose 86 POC Glucose Calculated Osmolality 295 Uric Acid Calcium 8.6 Phosphorus 3.0 Magnesium 2.0 Ferritin Lactate Dehydrogenase HIV Ag/Ab Combo Qual 05/29/18 05/29/18 05:50 05:54 WBC RBC Hgb Hct MCV MCH MCHC RDW Plt Count MPV Seg Neutrophils % Band Neutrophils % Lymphocytes % Monocytes % Eosinophils % Neutrophils # Lymphocytes # Monocytes # Eosinophils # Reactive Lymphocytes Smudge Cells PT INR Sodium Potassium Chloride Carbon Dioxide BUN Creatinine Est GFR ( Amer) Est GFR (Non-Af Amer) BUN/Creatinine Ratio Glucose POC Glucose 75 Calculated Osmolality Uric Acid 7.4 Calcium Phosphorus Magnesium Ferritin Lactate Dehydrogenase 258 HIV Ag/Ab Combo Qual - Impressions Impressions Lymph Node Biopsy/Excision 05/29/18 00:00 IMPRESSION: 1. Ultrasound-guided core needle biopsy left axillary lymphadenopathy as discussed above. D/ / Leroy Woods MD / Leroy Woods MD Interpreting Provider: Leroy Woods MD - ABG Interpretation ABG results: PT/INR, D-dimer PT 14.2 Seconds (9.4-12.1) H 05/29/18 05:50 Inpatient Charges Provider: Dr. Amy Engle Follow up - Inpatient: [id number] - Attending Attestation I examined this patient and my medical decision-making was reviewed with the Advanced Practice Nurse. I agree with the documented findings, disposition and treatment plan as described except to the extent set forth below. -LN biopsy done today, BMB scheduled for tomorrow. Started on Solumedrol 125 mg IV q8h and SSI. -Will obtain CGs, flow cytometry, and FISH from biopsies. -Discussed goals of care and future plans with the patient in detail.
[2018-05-29 10:27] LABS: Ferritin 398 ng/mL (20-250)
[2018-05-29] MEDS ORDERED: *HR* Midazolam HCl 2 MG/2 ML VIAL IVP ONE (10:42)
[2018-05-29] MEDS ORDERED: *HR* FentaNYL (PF) 100 MCG/2 ML VIAL IVP ONE (10:43)
--- NOTE | 2018-05-29 11:30 | IR Procedure Note ---
Date of procedure: 05/29/18 Consent Obtained: Written consent Timeout: Correct patient and procedure verified, Time out performed, Skin prep completed Local anesthetic: Lidocaine 1% Indications: Lymphadenopathy Procedure Performed: U/S guided left axillary LN biopsy Was there an legal executive assistant present: No Estimated blood loss (cc): 0 Complications: None; Tolerated procedure well Post Procedure Treatment Plan: Monitor on floor. Plan bone marrow asp/Bx tomorrow per [facility] [place] note Specimen: Sample to path
[2018-05-29] MEDS ORDERED: *HR* Dextrose 50 % in Water (Syg) 50 ML SYRINGE IVP PRN (13:37)
[2018-05-29] MEDS ORDERED: D5% in Water 1,000 ML IVC PRN (13:37)
[2018-05-29] MEDS ORDERED: Dextrose Gel 15 GM/37.5 ML TUBE PO PRN ×2 (13:37)
[2018-05-29] MEDS: Insulin LISPRO 300 UNITS/3 ML VIAL SQ SCH (16:36)
[2018-05-29] MEDS: methylPREDNISolone 125 MG/2 ML VIAL IVP SCH (16:36)
[2018-05-29] MEDS: Acetaminophen/Aspirin/Caffeine TABLET PO PRN (16:43)
[2018-05-29 17:21] LABS: Immature Granulocytes % 0.2 % (0-4); Mean Platelet Volume 12.6 fL (9.4-12.4); Nucleated Red Blood Cells 0.1 /100 WBC (0)
[2018-05-29 17:22] LABS: Basophils # 0.1 K/mcL (0.0-0.2); Basophils % 0.3 %; Eosinophils # 1.5 K/mcL (0.0-0.6); Eosinophils % 4.7 %; Hematocrit 38.2 % (37.5-50.1); Hemoglobin 12.4 g/dL (12.9-16.9); Lymphocytes # 15.9 K/mcL (0.6-4.6); Lymphocytes % 50.6 %; Mean Corpuscular HGB Conc 32.5 g/dL (31.6-35.5); Mean Corpuscular Hemoglobin 32.1 pg (28.0-33.3); Monocytes # 11.4 K/mcL (0.0-1.3); Monocytes % 36.3 %; Neutrophils # 2.5 K/mcL (1.6-8.9); Red Blood Count 3.86 M/mcL (4.19-5.50); Red Cell Distribution Width 15.7 % (11.5-14.5); Segmented Neutrophils % 7.9 %
[2018-05-29 17:28] LABS: INR 1.2; Prothrombin Time 13.7 Seconds (9.4-12.1)
[2018-05-29 17:38] LABS: Phosphorous 2.6 mg/dL (2.7-4.5); Uric Acid 6.8 mg/dL (2.3-7.6)
[2018-05-29 17:39] LABS: Alanine Aminotransferase 18 Units/L (7-52); Albumin/Globulin Ratio 1.9 (1.1-2.2); Alkaline Phosphatase 73 Units/L (34-104); Aspartate Amino Transferase 20 Units/L (13-39); BUN/Creatinine Ratio 16 (6-26); Bilirubin,Total 0.5 mg/dL (0.3-1.0); Blood Urea Nitrogen 15 mg/dL (8-23); Calcium 8.6 mg/dL (8.6-10.3); Carbon Dioxide 26 mEq/L (23-29); Chloride 109 mEq/L (98-107); Globulin 2.1 g/dL (2.4-3.5); Glucose 132 mg/dL (70-105); Osmolality,Calculated 295 (280-300); Potassium 3.8 mEq/L (3.5-5.1); Sodium 141 mEq/L (136-145); Total Protein 6.1 g/dL (6.4-8.9); eGFR For Non-African Americans > 60 (> 60)
[2018-05-29 17:41] LABS: Platelet Count 72 K/mcL (140-400)
[2018-05-29 18:27] LABS: Reactive Lymphocytes Present (Not Present); Smudge Cells Present (Not Present)
[2018-05-29 18:28] LABS: Platelet Estimate Decreased (Normal)
[2018-05-30] MEDS: methylPREDNISolone 125 MG/2 ML VIAL IVP SCH ×3 (01:18→16:04)
[2018-05-30] MEDS: *HR* Heparin 5,000 UNIT/ML VIAL SQ SCH ×3 (05:13→21:38)
[2018-05-30] MEDS: 0.9 % Sodium Chloride 1,000 ML IVC SCH ×3 (05:14→21:38)
[2018-05-30 07:25] LABS: Eosinophils % 0.2 %
[2018-05-30 07:27] LABS: Basophils # 0.1 K/mcL (0.0-0.2); Basophils % 0.2 %; Eosinophils # 0.1 K/mcL (0.0-0.6); Hematocrit 36.3 % (37.5-50.1); Hemoglobin 11.9 g/dL (12.9-16.9); Immature Granulocytes % 0.4 % (0-4); Lymphocytes # 14.4 K/mcL (0.6-4.6); Lymphocytes % 46.5 %; Mean Corpuscular HGB Conc 32.8 g/dL (31.6-35.5); Mean Corpuscular Hemoglobin 31.8 pg (28.0-33.3); Mean Corpuscular Volume 97.1 fL (83.0-100.0); Mean Platelet Volume 12.5 fL (9.4-12.4); Monocytes # 10.9 K/mcL (0.0-1.3); Monocytes % 35.3 %; Neutrophils # 5.4 K/mcL (1.6-8.9); Red Blood Count 3.74 M/mcL (4.19-5.50); Red Cell Distribution Width 15.3 % (11.5-14.5); Segmented Neutrophils % 17.4 %
[2018-05-30] MEDS: Insulin LISPRO 300 UNITS/3 ML VIAL SQ SCH ×3 (07:30→16:20)
[2018-05-30 07:31] LABS: INR 1.3; Prothrombin Time 14.1 Seconds (9.4-12.1)
[2018-05-30 08:00] LABS: Alanine Aminotransferase 18 Units/L (7-52); Albumin 4.1 g/dL (3.5-5.7); Albumin/Globulin Ratio 2.2 (1.1-2.2); Alkaline Phosphatase 75 Units/L (34-104); Aspartate Amino Transferase 21 Units/L (13-39); BUN/Creatinine Ratio 20 (6-26); Bilirubin,Total 0.4 mg/dL (0.3-1.0); Blood Urea Nitrogen 16 mg/dL (8-23); Calcium 8.6 mg/dL (8.6-10.3); Carbon Dioxide 23 mEq/L (23-29); Chloride 110 mEq/L (98-107); Globulin 1.9 g/dL (2.4-3.5); Glucose 159 mg/dL (70-105); Osmolality,Calculated 301 (280-300); Phosphorous 3.1 mg/dL (2.7-4.5); Potassium 3.9 mEq/L (3.5-5.1); Sodium 143 mEq/L (136-145); eGFR For Non-African Americans > 60 (> 60)
[2018-05-30 08:01] LABS: Uric Acid 5.9 mg/dL (2.3-7.6)
[2018-05-30 08:26] LABS: Platelet Count 75 K/mcL (140-400)
[2018-05-30 08:40] LABS: Platelet Estimate Slight Decrease (Normal); Smudge Cells Present (Not Present)
[2018-05-30] MEDS: Cyanocobalamin (B-12) 1,000 MCG/ML VIAL IM SCH (08:54)
--- NOTE | 2018-05-30 09:45 | Internal Med Progress Note ---
<Kenzie Balderas U - Last Filed: 05/30/18 15:33> Hospitalist Progress Note - Encounter Date of Encounter: 05/30/18 Time of Encounter: 08:20 - Subjective Interval History: Pt seen at bedside today with no acute complaints. Pt does not have abdominal pain anymore. Lymph nodes are still palpable and nontender. Pt had US guided axillary LN bx 05/29 and pathology report is pending currently. Pt is to have BM bx 05/30. - Exam Vitals: Temp Pulse Resp BP Pulse Ox 98.4 F 71 14 150/80 95 05/30/18 06:16 05/30/18 06:16 05/30/18 06:16 05/30/18 06:16 05/30/18 06:16 Exam: GENERAL: Well-developed, well-nourished adult male in no acute distress. HEENT: Atraumatic and normocephalic. NECK: Soft and nontender. Nontender lymphadenopathy of bilateral submandibular and left supraclavicular nodes present. CARDIOVASCULAR: Regular rate and rhythm. S1 and S2 present. No murmurs, gallops, or rubs. RESPIRATORY: CTA bilaterally. Chest rises and falls symmetrically with respiration. No accessory muscle use noted. GASTROINTESTINAL: Active bowel sounds x 4 quadrants. Abdomen is soft, nontender, and nondistended. No palpable organomegaly present. GENITOURINARY: Scrotal swelling and erythema present that is greater on the right. EXTREMITIES: No clubbing, cyanosis, or edema present. SKIN: Warm, dry, and intact. NEUROLOGIC: Patient answers questions appropriately and is cooperative with exam. No apparent focal deficits. PSYCHIATRIC: Slightly flat affect. Patient appears mildly anxious. - Assessment and Plan (1) Scrotal swelling Current Visit: Yes Status: Acute Assessment and Plan: Likely secondary to decreased lymphatic drainage due to progressive generalized lymphadenopathy Continue IV fluids. Discussed with oncology, their impression is that his his CLL may be converting to a high grade lymphoma Will do flow cytometry, anemia workup Plan to start on steroids/ treatment for high grade lymphoma once biopsy is complete per oncology Started on allopurinol 300mg po BID. Axillary LN bx performed and pathology report pending (05/29) NPO from midnight, BM biopsy today (05/30) pending (2) CLL (chronic lymphocytic leukemia) Current Visit: Yes Status: Chronic Assessment and Plan: See above. (3) Hypothyroidism (acquired) Current Visit: No Status: Chronic Assessment and Plan: - Continue home dose of levothyroxine (4) Abdominal lymphadenopathy Current Visit: Yes Status: Acute Assessment and Plan: High suspicion for lymphoma, particularly in light of concomitant elevated WBC count and history of CLL. Oncology on board. Brain MRI negative for metastatic disease (5) Bladder wall thickening Current Visit: Yes Status: Acute Assessment and Plan: Patient denies any dysuria, urinary frequency, or inability to void. Has significant hydronephrosis. Urology consulted and appreciate recs (6) Leukocytosis Current Visit: Yes Status: Chronic Assessment and Plan: Likely secondary to lymphoma. Oncology following. Monitor CBC. Follow up flow cytometry, retic count, anemia workup (7) Bilateral hydronephrosis Current Visit: Yes Status: Acute Assessment and Plan: Urology recommendation: prophylactic placement of bilateral stents until adenopathy responds to systemic therapy - Pt may get this done inpatient or outpatient post LN and BM biopsy results. (8) DVT prophylaxis Current Visit: Yes Status: Acute Assessment and Plan: - Heparin 5000units SQ Q8H DVT Prophylaxis: - Heparin 5000units SQ Q8H - Time Spent with Patient Total time spent is greater than 50% in coordination of care (as documented) at patient's floor/unit and/or counseling patient: Plan of Care Discussed with: patient Internal Medicine: Result - Labs CBC & Chem 7: 05/30/18 06:49 05/30/18 06:49 Labs: Short CBC 05/29/18 05/30/18 Range/Units 16:33 06:49 WBC 31.4 H* 30.9 H* (4.3-11.1) K/mcL Hgb 12.4 L 11.9 L (12.9-16.9) g/dL Hct 38.2 36.3 L (37.5-50.1) % Plt Count 72 L 75 L (140-400) K/mcL Neutrophils # 2.5 5.4 (1.6-8.9) K/mcL BMP 05/28/18 05/29/18 05/30/18 14:25 16:33 06:49 Sodium 140 141 143 Potassium 4.0 3.8 3.9 Chloride 109 H 109 H 110 H Carbon Dioxide 25 26 23 BUN 17 15 16 Creatinine 1.01 0.96 0.79 Glucose 187 H 132 H 159 H Calcium 8.6 8.6 8.6 Liver Function 05/29/18 05/30/18 Range/Units 16:33 06:49 Total Bilirubin 0.5 0.4 (0.3-1.0) mg/dL AST 20 21 (13-39) Units/L ALT 18 18 (7-52) Units/L Alkaline Phosphatase 73 75 (34-104) Units/L Albumin 4.0 4.1 (3.5-5.7) g/dL - ABG Interpretation ABG results: PT/INR, D-dimer PT 14.1 Seconds (9.4-12.1) H 05/30/18 06:49 - Impressions Impressions Lymph Node Biopsy/Excision 05/29/18 00:00 IMPRESSION: 1. Ultrasound-guided core needle biopsy left axillary lymphadenopathy as discussed above. D/ / Leroy Woods MD / Leroy Woods MD Interpreting Provider: Leroy Woods MD Consult Discharge Plan - Plan Referrals: Kalen Hart DO [Primary Care Provider] - <Mamie Cárdenas - Last Filed: 05/30/18 16:36> Hospitalist Progress Note - Encounter Date of Encounter: 05/30/18 Time of Encounter: 16:32 - Subjective Interval History: Patient lying in bed. Awaiting bone marrow biopsy to be done later today. Denies any new complaints at this time. No abdominal pain. No nausea or vomiting. - Exam Vitals: Temp Pulse Resp BP Pulse Ox 97.6 F 64 13 156/77 97 05/30/18 15:02 05/30/18 15:02 05/30/18 15:02 05/30/18 15:02 05/30/18 15:02 Exam: General: Patient is alert, no acute distress, oriented x 3 Respiratory: Good respiratory effort. Normal breath sounds. No wheezing or crackles. Cardiovascular: Regular rate and rhythm. s1 and s2 normal No clicks, rubs, gallops, or murmurs. No pedal edema Abdomen: Abdomen is soft, nontender. Bowel sounds are present. scrotal edema present. Musculoskeletal: Spontaneously moving all extremities Skin: warm, dry, intact. Neuro: Alert oriented x 3 normal cranial nerves, no focal deficits - Assessment and Plan (1) CLL (chronic lymphocytic leukemia) Current Visit: Yes Status: Chronic Assessment and Plan: Plan for bone marrow biopsy. Oncology plans to treat patient with Solu-Medrol post biopsy. Patient will likely remain in the hospital for the duration of the treatment. (2) Scrotal swelling Current Visit: Yes Status: Acute Assessment and Plan: Likely due to decreased lymphatic drainage in the setting of CLL and possible progression to high-grade lymphoma. Supportive care. Follow up with oncology recommendations. (3) Hypothyroidism (acquired) Current Visit: Yes Status: Chronic Assessment and Plan: Continue levothyroxin. (4) Abdominal lymphadenopathy Current Visit: Yes Status: Acute Assessment and Plan: With history of CLL with concern for conversion to high-grade lymphoma. Pending bone marrow biopsy results. (5) Bilateral hydronephrosis Current Visit: Yes Status: Acute Assessment and Plan: Renal function remained stable. Urology consult appreciated. Plan for prophylactic ureteral stent placement after bone marrow biopsy completed. (6) DVT prophylaxis Current Visit: Yes Status: Acute Assessment and Plan: Patient is on subcutaneous heparin (7) Bladder wall thickening Current Visit: Yes Status: Acute Assessment and Plan: No signs of acute UTI. (8) Leukocytosis Current Visit: Yes Status: Acute Assessment and Plan: Due to CLL. - Time Spent with Patient Total time spent is greater than 50% in coordination of care (as documented) at patient's floor/unit and/or counseling patient: Internal Medicine: Result - Labs CBC & Chem 7: 05/30/18 15:39 05/30/18 15:39 Labs: Short CBC 05/29/18 05/30/18 05/30/18 Range/Units 16:33 06:49 15:39 WBC 31.4 H* 30.9 H* 33.8 H* (4.3-11.1) K/mcL Hgb 12.4 L 11.9 L 12.1 L (12.9-16.9) g/dL Hct 38.2 36.3 L 37.0 L (37.5-50.1) % Plt Count 72 L 75 L 79 L (140-400) K/mcL Neutrophils # 2.5 5.4 (1.6-8.9) K/mcL BMP 05/29/18 05/30/18 05/30/18 16:33 06:49 15:39 Sodium 141 143 142 Potassium 3.8 3.9 3.7 Chloride 109 H 110 H 108 H Carbon Dioxide 26 23 25 BUN 15 16 17 Creatinine 0.96 0.79 0.84 Glucose 132 H 159 H 147 H Calcium 8.6 8.6 8.5 L Liver Function 05/29/18 05/30/18 05/30/18 Range/Units 16:33 06:49 15:39 Total Bilirubin 0.5 0.4 0.5 (0.3-1.0) mg/dL AST 20 21 21 (13-39) Units/L ALT 18 18 18 (7-52) Units/L Alkaline Phosphatase 73 75 76 (34-104) Units/L Albumin 4.0 4.1 4.1 (3.5-5.7) g/dL - ABG Interpretation ABG results: PT/INR, D-dimer PT 13.2 Seconds (9.4-12.1) H 05/30/18 15:39 - Impressions Impressions Biopsy CT 05/30/18 00:00 IMPRESSION: Successful CT guided bone marrow aspiration and core biopsy of the right iliac bone. D/ / Pito Duong / Pito Duong Interpreting Provider: Pito Duong Bone Marrow Biopsy w/ CT 05/30/18 00:00 IMPRESSION: Successful CT guided bone marrow aspiration and core biopsy of the right iliac bone. D/ / Pito Duong / Pito Duong Interpreting Provider: Pito Duong - Attending Attestation The history, physical exam, and medical decision making was performed by the medical student either while I was physically present and actively involved or I personally re-performed the exam and medical decision making. I have verified the accuracy of the medical student's documentation with regards to the history, physical exam findings, and medical decision making on 05/30/18 <Kenzie Balderas U - Last Filed: 05/30/18 15:33> (6) Leukocytosis Qualifiers: Leukocytosis type: unspecified Qualified Code(s): D72.829 - Elevated white blood cell count, unspecified <Mamie Cárdenas - Last Filed: 05/30/18 16:36> (8) Leukocytosis Qualifiers: Leukocytosis type: unspecified Qualified Code(s): D72.829 - Elevated white blood cell count, unspecified
[2018-05-30] MEDS: Pantoprazole 40 MG VIAL IVP SCH (13:22)
[2018-05-30] MEDS ORDERED: 0.9 % Sodium Chloride 500 ML ONE (14:25)
[2018-05-30] MEDS ORDERED: *HR* FentaNYL (PF) 100 MCG/2 ML VIAL IVP ONE (14:29)
[2018-05-30] MEDS ORDERED: *HR* Midazolam HCl 2 MG/2 ML VIAL ONE (14:29)
[2018-05-30] MEDS ORDERED: *HR* FentaNYL (PF) 100 MCG/2 ML VIAL ONE (14:29)
[2018-05-30] MEDS ORDERED: *HR* Midazolam HCl 2 MG/2 ML VIAL IVP ONE (14:29)
--- NOTE | 2018-05-30 14:30 | Pre-Sedation Evaluation ---
Pre-sedation evaluation - Pre-sedation checklist Date of procedure: 05/30/18 Procedure: bone marrow biopsy Recent Vitals: Last Vital Signs Temp 97.7 F 05/30/18 10:27 Pulse 64 05/30/18 10:27 Resp 15 05/30/18 10:27 BP 150/76 05/30/18 10:27 Pulse Ox 96 05/30/18 10:27 H&P (including ROS) documented in medical record: Yes Previous reaction to sedatives/anesthetics: No Dietary Status: NPO after Midnight Dentition: No loose teeth or bridges Possible difficult airway: No ASA Classification *see protocol: CLASS II-Mild systemic disease Plan of Care: Pt appropriate candidate for procedure/moderate/conscious sedation, Risks/benefits of procedure/sedation discussed w/ patient/family
[2018-05-30 16:00] LABS: Mean Platelet Volume 12.9 fL (9.4-12.4)
[2018-05-30 16:01] LABS: Hemoglobin 12.1 g/dL (12.9-16.9); Mean Corpuscular HGB Conc 32.7 g/dL (31.6-35.5); Mean Corpuscular Hemoglobin 31.9 pg (28.0-33.3); Mean Corpuscular Volume 97.6 fL (83.0-100.0); Red Blood Count 3.79 M/mcL (4.19-5.50); Red Cell Distribution Width 15.4 % (11.5-14.5)
[2018-05-30 16:08] LABS: Platelet Count 79 K/mcL (140-400)
[2018-05-30 16:20] LABS: Phosphorous 3.5 mg/dL (2.7-4.5); Uric Acid 5.3 mg/dL (2.3-7.6)
[2018-05-30 16:21] LABS: INR 1.2; Prothrombin Time 13.2 Seconds (9.4-12.1)
[2018-05-30 16:22] LABS: Alanine Aminotransferase 18 Units/L (7-52); Albumin 4.1 g/dL (3.5-5.7); Alkaline Phosphatase 76 Units/L (34-104); Aspartate Amino Transferase 21 Units/L (13-39); BUN/Creatinine Ratio 20 (6-26); Bilirubin,Total 0.5 mg/dL (0.3-1.0); Blood Urea Nitrogen 17 mg/dL (8-23); Calcium 8.5 mg/dL (8.6-10.3); Carbon Dioxide 25 mEq/L (23-29); Chloride 108 mEq/L (98-107); Globulin 2.1 g/dL (2.4-3.5); Glucose 147 mg/dL (70-105); Osmolality,Calculated 298 (280-300); Potassium 3.7 mEq/L (3.5-5.1); Sodium 142 mEq/L (136-145); Total Protein 6.2 g/dL (6.4-8.9); eGFR For Non-African Americans > 60 (> 60)
[2018-05-30 16:57] LABS: Lymphocytes # 24.3 K/mcL (0.6-4.6); Neutrophils # 8.8 K/mcL (1.6-8.9)
[2018-05-30 16:58] LABS: Anisocytosis 1+ (Not Present); Macrocytosis Present (Not Present); Platelet Estimate Decreased (Normal)
--- NOTE | 2018-05-30 17:52 | Oncology Inp Progress Note ---
<MendezLetty Larose - Last Filed: 05/30/18 17:50> Date of Encounter: 05/30/18 Time of Encounter: 17:00 (1) CLL (chronic lymphocytic leukemia) Current Visit: Yes Status: Chronic Assessment and plan: Progressive generalized MARYJANE, splenomegaly, scrotal swelling and premature cells on differential concerning for Rivera's transformation vs transformation to leukemia Patient has CLL, concern for rivera transformation Patient had US guided LN biopsy yesterday, s/p CT guided BM today HIV, Hep B, Hep C non-reactive Check hepatitis B core atb Plan- -Check hepatitis B core atb -LN biopsy-pathology pending---suspect results tomorrow or following day---please keep patient inpatient as we await these results so we may determine treatment recommendations -BM bx today---pathology pending -Will need FISH, cytogenetics and flow cytometry on both LN and BM biopsies. -Continue allopurinol 300mg BID -Daily CBC, CMP, LDH, Pt/INR, Fibrinogen, Mg, Phos and uric acid -Will start solumedrol 125mg q8hr x24 hr, then q12 hr x 24 hr then decrease to 100mg and taper from there. Will add SSI. -Pending labs: peripheral blood flow cytometery. PCR BCR-ABL, FISH t (9;22). (2) Anemia Current Visit: Yes Status: Acute Assessment and plan: Anemia likely secondary to underlying CLL LDH 286; Fe 95, iron saturation 36% transferrin 188. Folic acid 22.1 Vit B12 233 AUBRIE negative Plan: Continue Vit B12 1000 mcg SQ or IM daily x5 days -Pending labs: haptoglobin, SPEP, serum immunoelectrophoresis, serum free K/L light chains, Immunoglobulins (IgA, IgM, IgG) Qualifiers: Anemia type: unspecified type Qualified Code(s): D64.9 - Anemia, unspecified (3) Bilateral hydronephrosis Current Visit: Yes Status: Acute Assessment and plan: Left greater than right on CT images. Secondary to massive retroperitoneal adenopathy. Renal function normal at this time. Urology feels prophylactic placement of bilateral stents is the most appropriate course of action until his adenopathy responds to systemic therapy, however pt wishes to hold off on procedure pending bx results and heme/onc recs. Plan: BM biopsy-pathology pending LN biopsy-pathology pending Plan for stents based on results and pt wishes. (4) Scrotal swelling Current Visit: Yes Status: Acute Assessment and plan: Likely secondary to retroperitoneal, pelvic and inguinal adenopathy Plan: Continue steroids as above Oncology: Subj Interval history: Mr. Sparrow is resting in bed, experiencing some minor discomfort following his BMB. Feels as though his lymphadenopathy is improving. He denies fevers, chills, nght sweats, chest pain or SOB. Groin pain improved since admission, scrotal edema improving. - Constitutional Vitals: Vital Signs Temp Pulse Resp BP Pulse Ox 05/30/18 15:02 97.6 F 64 13 156/77 97 05/30/18 14:43 65 140/79 100 05/30/18 14:38 63 138/81 100 05/30/18 14:29 68 142/85 100 05/30/18 10:27 97.7 F 64 15 150/76 96 05/30/18 06:16 98.4 F 71 14 150/80 95 05/30/18 03:25 97.7 F 62 16 150/77 95 05/29/18 19:57 98 F 58 14 147/77 95 Intake and Output 05/30/18 05/30/18 05/30/18 07:59 15:59 23:59 Intake Total 1000 / 1000 1000 / 1000 Output Total 500 / 500 0 / 0 Balance 500 / 500 1000 / 1000 Intake: IV Fluids 1000 / 1000 1000 / 1000 0.9 % Sodium Chloride 1,000 ML 1000 / 1000 1000 / 1000 @ 125 mls/hr IVC .Q8H DOMONIQUE Rx#: [id number] Oral 0 / 0 Output: Urine 500 / 500 0 / 0 Other: Meal NPO # Voids 2 # Bowel Movements 0 Weight 82.4 kg Blood Glucose* 128 134 Patient Weight 05/30/18 23:59 Weight 82.4 kg General appearance: cooperative, no acute distress, no febrile - ENT ENT exam: Absent: mucous membranes moist - Neck Additional comments: lymphadenopathy improving - Respiratory Respiratory exam: Present: CTAB. Absent: respiratory distress - Cardiovascular Cardiovascular exam: Present: RRR, +S1, +S2 - GI/Abdominal GI/Abdominal exam: Present: normal bowel sounds, soft. Absent: guarding, rebound, tenderness - Additional comments: scrotal edema improving - Extremities Exam Extremities exam: Present: normal inspection. Absent: calf tenderness - Neurological Exam Neurological exam: Present: alert, oriented X3, no focal deficits, strengths equal and symetr throughout - Psychiatric Psychiatric exam: Present: flat affect - Skin Skin exam: Present: dry, normal color, warm Oncology: Obj Data - Labs CBC & Chem 7: 05/30/18 15:39 05/30/18 15:39 - Impressions Impressions Biopsy CT 05/30/18 00:00 IMPRESSION: Successful CT guided bone marrow aspiration and core biopsy of the right iliac bone. D/ / Pito Duong / Pito Duong Interpreting Provider: Pito Duong Bone Marrow Biopsy w/ CT 05/30/18 00:00 IMPRESSION: Successful CT guided bone marrow aspiration and core biopsy of the right iliac bone. D/ / Pito Duong / Pito Duong Interpreting Provider: Pito Duong - ABG Interpretation ABG results: PT/INR, D-dimer PT 13.2 Seconds (9.4-12.1) H 05/30/18 15:39 Consult Discharge Plan - Plan Referrals: Kalen Hart DO [Primary Care Provider] - <Noam Engle - Last Filed: 05/30/18 18:06> Date of Encounter: 05/30/18 - Constitutional Vitals: Vital Signs Temp Pulse Resp BP Pulse Ox 05/30/18 15:02 97.6 F 64 13 156/77 97 05/30/18 14:43 65 140/79 100 05/30/18 14:38 63 138/81 100 05/30/18 14:29 68 142/85 100 05/30/18 10:27 97.7 F 64 15 150/76 96 05/30/18 06:16 98.4 F 71 14 150/80 95 05/30/18 03:25 97.7 F 62 16 150/77 95 05/29/18 19:57 98 F 58 14 147/77 95 Intake and Output 11/13/18 11/13/18 11/14/18 08:59 16:59 00:59 Intake Total 1000 / 1000 1000 / 1000 240 / 240 Output Total 500 / 500 0 / 0 Balance 500 / 500 1000 / 1000 240 / 240 Intake: IV Fluids 1000 / 1000 1000 / 1000 0.9 % Sodium Chloride 1,000 ML 1000 / 1000 1000 / 1000 @ 125 mls/hr IVC .Q8H DOMONIQUE Rx#: [id number] Oral 0 / 0 240 / 240 Output: Urine 500 / 500 0 / 0 Other: Meal NPO NPO Dinner Percent of Meal Consumed 100% # Voids 2 # Bowel Movements 0 Weight 82.4 kg Blood Glucose* 128 134 Patient Weight 05/31/18 00:59 Weight 82.4 kg Oncology: Obj Data - Labs CBC & Chem 7: 05/30/18 15:39 05/30/18 15:39 Labs: Laboratory Results - last 24 hr 05/27/18 05/29/18 05/29/18 11:50 11:56 16:20 WBC RBC Hgb Hct MCV MCH MCHC RDW Plt Count MPV Immature Gran % Seg Neutrophils % Band Neutrophils % Lymphocytes % Monocytes % Eosinophils % Basophils % Blast Cells % Neutrophils # Lymphocytes # Monocytes # Eosinophils # Basophils # Reactive Lymphocytes Smudge Cells Platelet Estimate Anisocytosis Macrocytosis Haptoglobin 104 PT INR Fibrinogen Sodium Potassium Chloride Carbon Dioxide BUN Creatinine Est GFR ( Amer) Est GFR (Non-Af Amer) BUN/Creatinine Ratio Glucose POC Glucose 77 116 H Calculated Osmolality Uric Acid Calcium Phosphorus Magnesium Total Bilirubin AST ALT Alkaline Phosphatase Lactate Dehydrogenase Serum Total Protein Albumin Globulin Albumin/Globulin Ratio 05/29/18 05/29/18 05/30/18 16:33 16:33 06:49 WBC 30.9 H* RBC 3.74 L Hgb 11.9 L Hct 36.3 L MCV 97.1 MCH 31.8 MCHC 32.8 RDW 15.3 H Plt Count 75 L MPV 12.5 H Immature Gran % 0.2 0.4 Seg Neutrophils % 7.9 17.4 Band Neutrophils % Lymphocytes % 50.6 46.5 Monocytes % 36.3 35.3 Eosinophils % 4.7 0.2 Basophils % 0.3 0.2 Blast Cells % Neutrophils # 2.5 5.4 Lymphocytes # 15.9 H 14.4 H Monocytes # 11.4 H 10.9 H Eosinophils # 1.5 H 0.1 Basophils # 0.1 0.1 Reactive Lymphocytes Present A Smudge Cells Present A Present A Platelet Estimate Decreased L Slight Decrease L Anisocytosis Macrocytosis Haptoglobin PT INR Fibrinogen 192 Sodium Potassium Chloride Carbon Dioxide BUN Creatinine Est GFR ( Amer) Est GFR (Non-Af Amer) BUN/Creatinine Ratio Glucose POC Glucose Calculated Osmolality Uric Acid Calcium Phosphorus Magnesium Total Bilirubin AST ALT Alkaline Phosphatase Lactate Dehydrogenase Serum Total Protein Albumin Globulin Albumin/Globulin Ratio 05/30/18 05/30/18 05/30/18 06:49 06:49 06:49 WBC RBC Hgb Hct MCV MCH MCHC RDW Plt Count MPV Immature Gran % Seg Neutrophils % Band Neutrophils % Lymphocytes % Monocytes % Eosinophils % Basophils % Blast Cells % Neutrophils # Lymphocytes # Monocytes # Eosinophils # Basophils # Reactive Lymphocytes Smudge Cells Platelet Estimate Anisocytosis Macrocytosis Haptoglobin PT INR Fibrinogen Sodium 143 Potassium 3.9 Chloride 110 H Carbon Dioxide 23 BUN 16 Creatinine 0.79 Est GFR ( Amer) > 60 Est GFR (Non-Af Amer) > 60 BUN/Creatinine Ratio 20 Glucose 159 H POC Glucose Calculated Osmolality 301 H Uric Acid 5.9 Calcium 8.6 Phosphorus 3.1 Magnesium 2.0 Total Bilirubin 0.4 AST 21 ALT 18 Alkaline Phosphatase 75 Lactate Dehydrogenase 267 Serum Total Protein 6.0 L Albumin 4.1 Globulin 1.9 L Albumin/Globulin Ratio 2.2 05/30/18 05/30/18 05/30/18 06:49 07:14 15:39 WBC 33.8 H* RBC 3.79 L Hgb 12.1 L Hct 37.0 L MCV 97.6 MCH 31.9 MCHC 32.7 RDW 15.4 H Plt Count 79 L MPV 12.9 H Immature Gran % Seg Neutrophils % 20.0 Band Neutrophils % 6.0 H Lymphocytes % 72.0 Monocytes % Eosinophils % Basophils % Blast Cells % 2.0 H Neutrophils # 8.8 Lymphocytes # 24.3 H Monocytes # Eosinophils # Basophils # Reactive Lymphocytes Smudge Cells Platelet Estimate Decreased L Anisocytosis 1+ A Macrocytosis Present A Haptoglobin PT 14.1 H INR 1.3 Fibrinogen 229 Sodium Potassium Chloride Carbon Dioxide BUN Creatinine Est GFR ( Amer) Est GFR (Non-Af Amer) BUN/Creatinine Ratio Glucose POC Glucose 128 H Calculated Osmolality Uric Acid Calcium Phosphorus Magnesium Total Bilirubin AST ALT Alkaline Phosphatase Lactate Dehydrogenase Serum Total Protein Albumin Globulin Albumin/Globulin Ratio 05/30/18 05/30/18 05/30/18 15:39 15:39 15:39 WBC RBC Hgb Hct MCV MCH MCHC RDW Plt Count MPV Immature Gran % Seg Neutrophils % Band Neutrophils % Lymphocytes % Monocytes % Eosinophils % Basophils % Blast Cells % Neutrophils # Lymphocytes # Monocytes # Eosinophils # Basophils # Reactive Lymphocytes Smudge Cells Platelet Estimate Anisocytosis Macrocytosis Haptoglobin PT INR Fibrinogen Sodium 142 Potassium 3.7 Chloride 108 H Carbon Dioxide 25 BUN 17 Creatinine 0.84 Est GFR ( Amer) > 60 Est GFR (Non-Af Amer) > 60 BUN/Creatinine Ratio 20 Glucose 147 H POC Glucose Calculated Osmolality 298 Uric Acid 5.3 Calcium 8.5 L Phosphorus 3.5 Magnesium 2.0 Total Bilirubin 0.5 AST 21 ALT 18 Alkaline Phosphatase 76 Lactate Dehydrogenase 271 Serum Total Protein 6.2 L Albumin 4.1 Globulin 2.1 L Albumin/Globulin Ratio 2.0 05/30/18 15:39 WBC RBC Hgb Hct MCV MCH MCHC RDW Plt Count MPV Immature Gran % Seg Neutrophils % Band Neutrophils % Lymphocytes % Monocytes % Eosinophils % Basophils % Blast Cells % Neutrophils # Lymphocytes # Monocytes # Eosinophils # Basophils # Reactive Lymphocytes Smudge Cells Platelet Estimate Anisocytosis Macrocytosis Haptoglobin PT 13.2 H INR 1.2 Fibrinogen 209 Sodium Potassium Chloride Carbon Dioxide BUN Creatinine Est GFR ( Amer) Est GFR (Non-Af Amer) BUN/Creatinine Ratio Glucose POC Glucose Calculated Osmolality Uric Acid Calcium Phosphorus Magnesium Total Bilirubin AST ALT Alkaline Phosphatase Lactate Dehydrogenase Serum Total Protein Albumin Globulin Albumin/Globulin Ratio - Impressions Impressions Biopsy CT 05/30/18 00:00 IMPRESSION: Successful CT guided bone marrow aspiration and core biopsy of the right iliac bone. D/ / Pito Duong / Pito Duong Interpreting Provider: Pito Duong Bone Marrow Biopsy w/ CT 05/30/18 00:00 IMPRESSION: Successful CT guided bone marrow aspiration and core biopsy of the right iliac bone. D/ / iPto Duong / Pito Duong Interpreting Provider: Pito Duong - ABG Interpretation ABG results: PT/INR, D-dimer PT 13.2 Seconds (9.4-12.1) H 05/30/18 15:39 Inpatient Charges Provider: Dr. Amy Engle Follow up - Inpatient: [id number] - Attending Attestation I examined this patient and my medical decision-making was reviewed with the Advanced Practice Nurse. I agree with the documented findings, disposition and treatment plan as described except to the extent set forth below. -MARYJANE and scrotal swelling improving after starting steroids. -Will follow up on LN biopsy and BMB results.
[2018-05-31] MEDS ORDERED: methylPREDNISolone 125 MG/2 ML VIAL IVP SCH (04:00)
[2018-05-31 05:54] LABS: Hematocrit 33.5 % (37.5-50.1); Mean Corpuscular HGB Conc 32.8 g/dL (31.6-35.5); Mean Corpuscular Hemoglobin 31.7 pg (28.0-33.3); Mean Corpuscular Volume 96.5 fL (83.0-100.0); Mean Platelet Volume 13.7 fL (9.4-12.4); Red Blood Count 3.47 M/mcL (4.19-5.50); Red Cell Distribution Width 15.6 % (11.5-14.5)
[2018-05-31 05:55] LABS: Platelet Count 68 K/mcL (140-400)
[2018-05-31 05:59] LABS: INR 1.2; Prothrombin Time 13.2 Seconds (9.4-12.1)
[2018-05-31] MEDS: *HR* Heparin 5,000 UNIT/ML VIAL SQ SCH ×3 (06:02→20:57)
[2018-05-31 06:26] LABS: Lymphocytes # 16.5 K/mcL (0.6-4.6); Monocytes # 3.5 K/mcL (0.0-1.3); Neutrophils # 9.4 K/mcL (1.6-8.9); Platelet Estimate Decreased (Normal)
[2018-05-31 07:06] LABS: Magnesium 2.1 mg/dL (1.6-2.6); Phosphorous 3.7 mg/dL (2.7-4.5); Uric Acid 5.2 mg/dL (2.3-7.6)
[2018-05-31 07:07] LABS: Alanine Aminotransferase 19 Units/L (7-52); Albumin 3.8 g/dL (3.5-5.7); Albumin/Globulin Ratio 2.2 (1.1-2.2); Alkaline Phosphatase 71 Units/L (34-104); Aspartate Amino Transferase 19 Units/L (13-39); BUN/Creatinine Ratio 25 (6-26); Bilirubin,Total 0.4 mg/dL (0.3-1.0); Blood Urea Nitrogen 23 mg/dL (8-23); Carbon Dioxide 21 mEq/L (23-29); Chloride 112 mEq/L (98-107); Globulin 1.7 g/dL (2.4-3.5); Glucose 154 mg/dL (70-105); Osmolality,Calculated 301 (280-300); Sodium 142 mEq/L (136-145); Total Protein 5.5 g/dL (6.4-8.9); eGFR For Non-African Americans > 60 (> 60)
[2018-05-31] MEDS: 0.9 % Sodium Chloride 1,000 ML IVC SCH ×2 (08:41→18:22)
[2018-05-31] MEDS: Pantoprazole 40 MG VIAL IVP SCH (08:41)
[2018-05-31] MEDS: Insulin LISPRO 300 UNITS/3 ML VIAL SQ SCH ×3 (08:43→18:22)
[2018-05-31] MEDS: Cyanocobalamin (B-12) 1,000 MCG/ML VIAL IM SCH (08:46)
[2018-05-31 08:57] LABS: Kappa Qnt Free Light Chains 12.6 mg/dL (0.33-1.94); Lambda Qnt Free Light Chains 1.06 mg/dL (0.57-2.63)
--- NOTE | 2018-05-31 09:15 | Oncology Inp Progress Note ---
<Sheila Sexton - Last Filed: 05/31/18 11:27> Date of Encounter: 05/31/18 Time of Encounter: 09:15 (1) Generalized lymphadenopathy Current Visit: Yes Status: Acute Assessment and plan: Progressive generalized MARYJANE, splenomegaly, scrotal swelling and premature cells on differential concerning for Magallon's transformation vs transformation to leukemia Patient has CLL, concern for progression to high grade lymphoma Patient had US guided LN 05/29, anticipate results later today Patient had CT guided BM biopsy 05/30--results pending HIV, Hep B, Hep C non-reactive Plan- -LN biopsy-pathology pending with FISH, cytogenetics and flow cytometry suspect results today or tomorrow --> please keep patient inpatient as we await these results so we may determine treatment recommendations, pt may require inpatient treatment based on results -BM bx - results pending with FISH, cytogenetics and flow cytometry -Continue IVF: NS 0.9% at 100cc/hr -Continue allopurinal 300mg BID -Q12h CBC, CMP, LDH, Pt/INR, Fibrinogen, Mg, Phos and uric acid -Continue solumedrol taper at 100mg Q12hr and taper from there. -Pending labs: peripheral blood flow cytometery. PCR BCR-ABL, FISH t (9;22) of LN and BM bx. (2) Anemia Current Visit: Yes Status: Acute Assessment and plan: Anemia likely secondary to underlying CLL LDH 286; Fe 95, iron saturation 36% transferrin 188. Folic acid 22.1 Vit B12 233 AUBRIE negative Plan: Continue Vit B12 1000 mcg SQ or IM daily for 5 days total -Pending labs: haptoglobin, SPEP, serum immunoelectrophoresis, serum free K/L light chains, Immunoglobulins (IgA, IgM, IgG) Qualifiers: Anemia type: unspecified type Qualified Code(s): D64.9 - Anemia, uns pecified (3) CLL (chronic lymphocytic leukemia) Current Visit: Yes Status: Chronic Assessment and plan: per above (4) Bilateral hydronephrosis Current Visit: Yes Status: Acute Assessment and plan: Left greater than right on CT images. Secondary to massive retroperitoneal adenopathy. Renal function normal at this time. Urology feels prophylactic placement of bilateral stents is the most appropriate course of action until his adenopathy responds to systemic therapy, however pt wishes to hold off on procedure pending bx results and heme/onc recs. Plan: BM biopsy --pathology pending LN biopsy --pathology pending Plan for stents based on results and pt wishes. (5) Scrotal swelling Current Visit: Yes Status: Acute Assessment and plan: Likely secondary to retroperitoneal, pelvic and inguinal adenopathy Pt on high dose steroid taper, seems to be improving. Plan: Continue steroid taper (6) Bladder wall thickening Current Visit: Yes Status: Acute Assessment and plan: Per urology, likely the result of voiding against resistance/BPH. Will consider cystoscopy in near future to rule out pathology. Oncology: Subj Interval history: Patient seen and examined. States that he has no complaints and his swelling continues to improve. - Constitutional Vitals: Vital Signs Temp Pulse Resp BP Pulse Ox 05/31/18 07:48 97.5 F L 50 18 128/64 97 05/31/18 03:49 97.4 F L 57 14 125/61 97 05/30/18 23:09 97.5 F L 52 15 129/69 97 05/30/18 18:55 97.7 F 64 16 133/66 97 05/30/18 15:02 97.6 F 64 13 156/77 97 05/30/18 14:43 65 140/79 100 05/30/18 14:38 63 138/81 100 05/30/18 14:29 68 142/85 100 05/30/18 10:27 97.7 F 64 15 150/76 96 Intake and Output 05/30/18 05/31/18 05/31/18 23:59 07:59 15:59 Intake Total 1240 / 1240 1300 / 1300 Output Total 200 / 200 600 / 600 Balance 1040 / 1040 700 / 700 Intake: IV Fluids 1000 / 1000 1000 / 1000 0.9 % Sodium Chloride 1,000 ML 1000 / 1000 1000 / 1000 @ 125 mls/hr IVC .Q8H [facility] Rx#: [id number] Oral 240 / 240 300 / 300 Output: Urine 200 / 200 600 / 600 Other: Meal Dinner Percent of Meal Consumed 100% # Bowel Movements 0 Weight 84.2 kg Blood Glucose* 195 132 Patient Weight 05/31/18 23:59 Weight 84.2 kg General appearance: average body habitus, cooperative, no acute distress - Head Head exam: Present: atraumatic, normal inspection, normocephalic - Eye Eye exam: Present: EOMI, normal appearance, conjuntiva pink, sclera anicteric - ENT ENT exam: Present: mucous membranes moist - Neck Neck exam: Present: lymphadenopathy. Absent: tenderness, thyromegaly - Respiratory Respiratory exam: Present: CTAB. Absent: rales, respiratory distress, rhonchi, wheezes - Cardiovascular Cardiovascular exam: Present: RRR, +S1, +S2. Absent: diastolic murmur, systolic murmur - GI/Abdominal GI/Abdominal exam: Present: normal bowel sounds, soft. Absent: distended, guarding, mass, organomegaly, rigid, tenderness - exam: Present: normal inspection. Absent: scrotal swelling - Neurological Exam Neurological exam: Present: alert, no focal deficits. Absent: speech deficit - Psychiatric Psychiatric exam: Present: flat affect - Skin Skin exam: Present: dry, intact, normal color, warm. Absent: rash Oncology: Obj Data - Labs CBC & Chem 7: 05/31/18 05:09 05/31/18 05:09 Labs: Laboratory Results - last 24 hr 05/27/18 05/29/18 05/30/18 11:50 21:14 06:49 WBC RBC Hgb Hct MCV MCH MCHC RDW Plt Count MPV Seg Neutrophils % Band Neutrophils % Lymphocytes % Monocytes % Blast Cells % Neutrophils # Lymphocytes # Monocytes # Platelet Estimate Anisocytosis Macrocytosis Haptoglobin 104 PT INR Fibrinogen 229 Sodium Potassium Chloride Carbon Dioxide BUN Creatinine Est GFR ( Amer) Est GFR (Non-Af Amer) BUN/Creatinine Ratio Glucose POC Glucose 194 H Calculated Osmolality Uric Acid Calcium Phosphorus Magnesium Total Bilirubin AST ALT Alkaline Phosphatase Lactate Dehydrogenase Serum Total Protein Albumin Globulin Albumin/Globulin Ratio Hep B Core IgM Ab 05/30/18 05/30/18 05/30/18 11:02 15:39 15:39 WBC 33.8 H* RBC 3.79 L Hgb 12.1 L Hct 37.0 L MCV 97.6 MCH 31.9 MCHC 32.7 RDW 15.4 H Plt Count 79 L MPV 12.9 H Seg Neutrophils % 20.0 Band Neutrophils % 6.0 H Lymphocytes % 72.0 Monocytes % Blast Cells % 2.0 H Neutrophils # 8.8 Lymphocytes # 24.3 H Monocytes # Platelet Estimate Decreased L Anisocytosis 1+ A Macrocytosis Present A Haptoglobin PT INR Fibrinogen Sodium 142 Potassium 3.7 Chloride 108 H Carbon Dioxide 25 BUN 17 Creatinine 0.84 Est GFR ( Amer) > 60 Est GFR (Non-Af Amer) > 60 BUN/Creatinine Ratio 20 Glucose 147 H POC Glucose 134 H Calculated Osmolality 298 Uric Acid Calcium 8.5 L Phosphorus Magnesium Total Bilirubin 0.5 AST 21 ALT 18 Alkaline Phosphatase 76 Lactate Dehydrogenase Serum Total Protein 6.2 L Albumin 4.1 Globulin 2.1 L Albumin/Globulin Ratio 2.0 Hep B Core IgM Ab 05/30/18 05/30/18 05/30/18 15:39 15:39 15:39 WBC RBC Hgb Hct MCV MCH MCHC RDW Plt Count MPV Seg Neutrophils % Band Neutrophils % Lymphocytes % Monocytes % Blast Cells % Neutrophils # Lymphocytes # Monocytes # Platelet Estimate Anisocytosis Macrocytosis Haptoglobin PT 13.2 H INR 1.2 Fibrinogen 209 Sodium Potassium Chloride Carbon Dioxide BUN Creatinine Est GFR ( Amer) Est GFR (Non-Af Amer) BUN/Creatinine Ratio Glucose POC Glucose Calculated Osmolality Uric Acid 5.3 Calcium Phosphorus 3.5 Magnesium 2.0 Total Bilirubin AST ALT Alkaline Phosphatase Lactate Dehydrogenase 271 Serum Total Protein Albumin Globulin Albumin/Globulin Ratio Hep B Core IgM Ab 05/30/18 05/30/18 05/31/18 16:17 20:18 05:09 WBC 29.5 H RBC 3.47 L Hgb 11.0 L Hct 33.5 L MCV 96.5 MCH 31.7 MCHC 32.8 RDW 15.6 H Plt Count 68 L MPV 13.7 H Seg Neutrophils % 32.0 Band Neutrophils % Lymphocytes % 56.0 Monocytes % 12.0 Blast Cells % Neutrophils # 9.4 H Lymphocytes # 16.5 H Monocytes # 3.5 H Platelet Estimate Decreased L Anisocytosis Macrocytosis Haptoglobin PT INR Fibrinogen Sodium Potassium Chloride Carbon Dioxide BUN Creatinine Est GFR ( Amer) Est GFR (Non-Af Amer) BUN/Creatinine Ratio Glucose POC Glucose 208 H 195 H Calculated Osmolality Uric Acid Calcium Phosphorus Magnesium Total Bilirubin AST ALT Alkaline Phosphatase Lactate Dehydrogenase Serum Total Protein Albumin Globulin Albumin/Globulin Ratio Hep B Core IgM Ab 05/31/18 05/31/18 05/31/18 05:09 05:09 05:09 WBC RBC Hgb Hct MCV MCH MCHC RDW Plt Count MPV Seg Neutrophils % Band Neutrophils % Lymphocytes % Monocytes % Blast Cells % Neutrophils # Lymphocytes # Monocytes # Platelet Estimate Anisocytosis Macrocytosis Haptoglobin PT INR Fibrinogen Sodium 142 Potassium 4.0 Chloride 112 H Carbon Dioxide 21 L BUN 23 Creatinine 0.93 Est GFR ( Amer) > 60 Est GFR (Non-Af Amer) > 60 BUN/Creatinine Ratio 25 Glucose 154 H POC Glucose Calculated Osmolality 301 H Uric Acid 5.2 Calcium 8.0 L Phosphorus 3.7 Magnesium 2.1 Total Bilirubin 0.4 AST 19 ALT 19 Alkaline Phosphatase 71 Lactate Dehydrogenase 255 Serum Total Protein 5.5 L Albumin 3.8 Globulin 1.7 L Albumin/Globulin Ratio 2.2 Hep B Core IgM Ab 05/31/18 05/31/18 05:09 05:09 WBC RBC Hgb Hct MCV MCH MCHC RDW Plt Count MPV Seg Neutrophils % Band Neutrophils % Lymphocytes % Monocytes % Blast Cells % Neutrophils # Lymphocytes # Monocytes # Platelet Estimate Anisocytosis Macrocytosis Haptoglobin PT 13.2 H INR 1.2 Fibrinogen 175 Sodium Potassium Chloride Carbon Dioxide BUN Creatinine Est GFR ( Amer) Est GFR (Non-Af Amer) BUN/Creatinine Ratio Glucose POC Glucose Calculated Osmolality Uric Acid Calcium Phosphorus Magnesium Total Bilirubin AST ALT Alkaline Phosphatase Lactate Dehydrogenase Serum Total Protein Albumin Globulin Albumin/Globulin Ratio Hep B Core IgM Ab Nonreactive - Impressions Impressions Biopsy CT 05/30/18 00:00 IMPRESSION: Successful CT guided bone marrow aspiration and core biopsy of the right iliac bone. D/ / Pito Duong / Pito Duong Interpreting Provider: Pito Duong Bone Marrow Biopsy w/ CT 05/30/18 00:00 IMPRESSION: Successful CT guided bone marrow aspiration and core biopsy of the right iliac bone. D/ / Pito Duong / Pito Duong Interpreting Provider: Pito Duong - ABG Interpretation ABG results: PT/INR, D-dimer PT 13.2 Seconds (9.4-12.1) H 05/31/18 05:09 Consult Discharge Plan - Plan Referrals: Kalen Hart DO [Primary Care Provider] - <Noam Engle - Last Filed: 05/31/18 17:38> Date of Encounter: 05/31/18 - Constitutional Vitals: Vital Signs Temp Pulse Resp BP Pulse Ox 05/31/18 16:27 97.4 F L 52 15 131/65 96 05/31/18 10:26 98.2 F 69 18 112/70 95 05/31/18 07:48 97.5 F L 50 18 128/64 97 05/31/18 03:49 97.4 F L 57 14 125/61 97 05/30/18 23:09 97.5 F L 52 15 129/69 97 05/30/18 18:55 97.7 F 64 16 133/66 97 Intake and Output 05/31/18 05/31/18 06/01/18 08:59 16:59 00:59 Intake Total 1300 / 1300 240 / 240 Output Total 600 / 600 0 / 0 Balance 700 / 700 240 / 240 Intake: IV Fluids 1000 / 1000 0.9 % Sodium Chloride 1,000 ML 1000 / 1000 @ 125 mls/hr IVC .Q8H [facility] Rx#: [id number] Oral 300 / 300 240 / 240 Output: Urine 600 / 600 0 / 0 Other: Meal Breakfast Percent of Meal Consumed 75% # Bowel Movements 0 Weight 84.2 kg Blood Glucose* 132 183 Patient Weight 06/01/18 00:59 Weight 84.2 kg Oncology: Obj Data - Labs CBC & Chem 7: 05/31/18 16:08 05/31/18 16:08 Labs: Laboratory Results - last 24 hr 05/28/18 05/28/18 05/29/18 14:25 14:25 21:14 WBC RBC Hgb Hct MCV MCH MCHC RDW Plt Count MPV Seg Neutrophils % Lymphocytes % Band Neutrophils % Monocytes % Neutrophils # Lymphocytes # Monocytes # Reactive Lymphocytes Platelet Estimate Haptoglobin 107 PT INR Fibrinogen Sodium Potassium Chloride Carbon Dioxide BUN Creatinine Est GFR ( Amer) Est GFR (Non-Af Amer) BUN/Creatinine Ratio Glucose POC Glucose 194 H Calculated Osmolality Uric Acid Calcium Phosphorus Magnesium Total Bilirubin AST ALT Alkaline Phosphatase Lactate Dehydrogenase Serum Total Protein Albumin Globulin Albumin/Globulin Ratio IgG 642 L IgA 35 L IgM 107 Hep B Core IgM Ab 05/30/18 05/30/18 05/30/18 11:02 16:17 20:18 WBC RBC Hgb Hct MCV MCH MCHC RDW Plt Count MPV Seg Neutrophils % Lymphocytes % Band Neutrophils % Monocytes % Neutrophils # Lymphocytes # Monocytes # Reactive Lymphocytes Platelet Estimate Haptoglobin PT INR Fibrinogen Sodium Potassium Chloride Carbon Dioxide BUN Creatinine Est GFR ( Amer) Est GFR (Non-Af Amer) BUN/Creatinine Ratio Glucose POC Glucose 134 H 208 H 195 H Calculated Osmolality Uric Acid Calcium Phosphorus Magnesium Total Bilirubin AST ALT Alkaline Phosphatase Lactate Dehydrogenase Serum Total Protein Albumin Globulin Albumin/Globulin Ratio IgG IgA IgM Hep B Core IgM Ab 05/31/18 05/31/18 05/31/18 05:09 05:09 05:09 WBC 29.5 H RBC 3.47 L Hgb 11.0 L Hct 33.5 L MCV 96.5 MCH 31.7 MCHC 32.8 RDW 15.6 H Plt Count 68 L MPV 13.7 H Seg Neutrophils % 32.0 Lymphocytes % 56.0 Band Neutrophils % Monocytes % 12.0 Neutrophils # 9.4 H Lymphocytes # 16.5 H Monocytes # 3.5 H Reactive Lymphocytes Platelet Estimate Decreased L Haptoglobin PT INR Fibrinogen Sodium 142 Potassium 4.0 Chloride 112 H Carbon Dioxide 21 L BUN 23 Creatinine 0.93 Est GFR ( Amer) > 60 Est GFR (Non-Af Amer) > 60 BUN/Creatinine Ratio 25 Glucose 154 H POC Glucose Calculated Osmolality 301 H Uric Acid Calcium 8.0 L Phosphorus 3.7 Magnesium 2.1 Total Bilirubin 0.4 AST 19 ALT 19 Alkaline Phosphatase 71 Lactate Dehydrogenase Serum Total Protein 5.5 L Albumin 3.8 Globulin 1.7 L Albumin/Globulin Ratio 2.2 IgG IgA IgM Hep B Core IgM Ab 05/31/18 05/31/18 05/31/18 05:09 05:09 05:09 WBC RBC Hgb Hct MCV MCH MCHC RDW Plt Count MPV Seg Neutrophils % Lymphocytes % Band Neutrophils % Monocytes % Neutrophils # Lymphocytes # Monocytes # Reactive Lymphocytes Platelet Estimate Haptoglobin PT 13.2 H INR 1.2 Fibrinogen 175 Sodium Potassium Chloride Carbon Dioxide BUN Creatinine Est GFR ( Amer) Est GFR (Non-Af Amer) BUN/Creatinine Ratio Glucose POC Glucose Calculated Osmolality Uric Acid 5.2 Calcium Phosphorus Magnesium Total Bilirubin AST ALT Alkaline Phosphatase Lactate Dehydrogenase 255 Serum Total Protein Albumin Globulin Albumin/Globulin Ratio IgG IgA IgM Hep B Core IgM Ab Nonreactive 05/31/18 05/31/18 05/31/18 11:25 16:08 16:08 WBC 27.4 H RBC 3.37 L Hgb 10.6 L Hct 32.9 L MCV 97.6 MCH 31.5 MCHC 32.2 RDW 15.9 H Plt Count 66 L MPV 12.5 H Seg Neutrophils % 8.0 Lymphocytes % 86.0 Band Neutrophils % 2.0 Monocytes % 4.0 Neutrophils # 2.7 Lymphocytes # 23.6 H Monocytes # 1.1 Reactive Lymphocytes Present A Platelet Estimate Decreased L Haptoglobin PT INR Fibrinogen Sodium 142 Potassium 4.0 Chloride 114 H Carbon Dioxide 21 L BUN 27 H Creatinine 0.97 Est GFR ( Amer) > 60 Est GFR (Non-Af Amer) > 60 BUN/Creatinine Ratio 28 H Glucose 187 H POC Glucose 183 H Calculated Osmolality 304 H Uric Acid Calcium 7.8 L Phosphorus Magnesium Total Bilirubin 0.3 AST 20 ALT 21 Alkaline Phosphatase 69 Lactate Dehydrogenase Serum Total Protein 5.5 L Albumin 3.8 Globulin 1.7 L Albumin/Globulin Ratio 2.2 IgG IgA IgM Hep B Core IgM Ab 05/31/18 05/31/18 05/31/18 16:08 16:08 16:08 WBC RBC Hgb Hct MCV MCH MCHC RDW Plt Count MPV Seg Neutrophils % Lymphocytes % Band Neutrophils % Monocytes % Neutrophils # Lymphocytes # Monocytes # Reactive Lymphocytes Platelet Estimate Haptoglobin PT 12.8 H INR 1.1 Fibrinogen 159 L Sodium Potassium Chloride Carbon Dioxide BUN Creatinine Est GFR ( Amer) Est GFR (Non-Af Amer) BUN/Creatinine Ratio Glucose POC Glucose Calculated Osmolality Uric Acid 4.5 Calcium Phosphorus 3.3 Magnesium 2.3 Total Bilirubin AST ALT Alkaline Phosphatase Lactate Dehydrogenase 237 Serum Total Protein Albumin Globulin Albumin/Globulin Ratio IgG IgA IgM Hep B Core IgM Ab - ABG Interpretation ABG results: PT/INR, D-dimer PT 12.8 Seconds (9.4-12.1) H 05/31/18 16:08 Inpatient Charges Provider: Dr. Amy Engle Follow up - Inpatient: [id number] - Attending Attestation I examined this patient and my medical decision-making was reviewed with the Advanced Practice Nurse. I agree with the documented findings, disposition and treatment plan as described except to the extent set forth below. MAYRJANE continues to improve with steroids. BMB and LN biopsy pending.
--- NOTE | 2018-05-31 10:02 | Internal Med Progress Note ---
<BalderasShavonnesarahi U - Last Filed: 05/31/18 11:49> Hospitalist Progress Note - Encounter Date of Encounter: 05/31/18 Time of Encounter: 09:20 - Subjective Interval History: Pt seen at bedside today with no acute complaints. Pt does not have abdominal pain anymore. Lymph nodes are still palpable but less prominent and nontender. Pt had US guided axillary LN bx 05/29 and BM bx 05/30, pathology results pending for both biopsies. - Exam Vitals: Temp Pulse Resp BP Pulse Ox 97.5 F L 50 18 128/64 97 05/31/18 07:48 05/31/18 07:48 05/31/18 07:48 05/31/18 07:48 05/31/18 07:48 Exam: General: Patient is alert, no acute distress, oriented x 3 Respiratory: Good respiratory effort. Normal breath sounds. No wheezing or crackles. Cardiovascular: Regular rate and rhythm. s1 and s2 normal No clicks, rubs, gallops, or murmurs. No pedal edema Abdomen: Abdomen is soft, nontender. Bowel sounds are present. scrotal edema present. Musculoskeletal: Spontaneously moving all extremities Skin: warm, dry, intact. Neuro: Alert oriented x 3 normal cranial nerves, no focal deficits - Assessment and Plan (1) Generalized lymphadenopathy Current Visit: Yes Status: Acute Assessment and Plan: Progressive generalized MARYJANE, splenomegaly, scrotal swelling and premature cells on differential concerning for Magallon's transformation vs transformation to leukemia Patient has CLL, concern for progression to high grade lymphoma Patient had US guided LN 05/29, anticipate results later today Patient had CT guided BM biopsy 05/30--results pending HIV, Hep B, Hep C non-reactive Plan- -LN biopsy-pathology pending with FISH, cytogenetics and flow cytometry suspect results tomorrow or following day --> please keep patient inpatient as we await these results so we may determine treatment recommendations, pt may require inpatient treatment based on results -BM bx - results pending with FISH, cytogenetics and flow cytometry -Continue IVF: NS 0.9% at 100cc/hr -Continue allopurinal 300mg BID -Q12h CBC, CMP, LDH, Pt/INR, Fibrinogen, Mg, Phos and uric acid -Continue solumedrol taper at 100mg Q12hr and taper from there. -Pending labs: peripheral blood flow cytometery. PCR BCR-ABL, FISH t (9;22) of LN and BM bx. (2) Anemia Current Visit: Yes Status: Acute Assessment and Plan: Anemia likely secondary to underlying CLL LDH 286; Fe 95, iron saturation 36% transferrin 188. Folic acid 22.1 Vit B12 233 AUBRIE negative Plan: Continue Vit B12 1000 mcg SQ or IM daily for 5 days total -Pending labs: haptoglobin, SPEP, serum immunoelectrophoresis, serum free K/L light chains, Immunoglobulins (IgA, IgM, IgG) (3) CLL (chronic lymphocytic leukemia) Current Visit: Yes Status: Chronic Assessment and Plan: See above. (4) Bilateral hydronephrosis Current Visit: Yes Status: Acute Assessment and Plan: Left greater than right on CT images. Secondary to massive retroperitoneal adenopathy. Renal function normal at this time. Urology feels prophylactic placement of bilateral stents is the most appropriate course of action until his adenopathy responds to systemic therapy, however pt wishes to hold off on procedure pending bx results and heme/onc recs. Plan: BM biopsy --pathology pending LN biopsy --pathology pending Plan for stents based on results and pt wishes. (5) Scrotal swelling Current Visit: Yes Status: Acute Assessment and Plan: Likely secondary to retroperitoneal, pelvic and inguinal adenopathy Pt on high dose steroid taper, seems to be improving. Plan: Continue steroid taper (6) Bladder wall thickening Current Visit: Yes Status: Acute Assessment and Plan: Per urology, likely the result of voiding against resistance/BPH. Will consider cystoscopy in near future to rule out pathology. (7) Leukocytosis Current Visit: Yes Status: Chronic Assessment and Plan: See above. (8) Hypothyroidism (acquired) Current Visit: Yes Status: Chronic Assessment and Plan: - Continue home dose of levothyroxine. (9) DVT prophylaxis Current Visit: Yes Status: Acute Assessment and Plan: - Heparain 5000 units SQ Q8H DVT Prophylaxis: - Heparain 5000 units SQ Q8H - Time Spent with Patient Total time spent is greater than 50% in coordination of care (as documented) at patient's floor/unit and/or counseling patient: Plan of Care Discussed with: patient Internal Medicine: Result - Labs CBC & Chem 7: 05/31/18 05:09 05/31/18 05:09 Labs: Short CBC 05/30/18 05/31/18 Range/Units 15:39 05:09 WBC 33.8 H* 29.5 H (4.3-11.1) K/mcL Hgb 12.1 L 11.0 L (12.9-16.9) g/dL Hct 37.0 L 33.5 L (37.5-50.1) % Plt Count 79 L 68 L (140-400) K/mcL Neutrophils # 8.8 9.4 H (1.6-8.9) K/mcL BMP 05/30/18 05/31/18 15:39 05:09 Sodium 142 142 Potassium 3.7 4.0 Chloride 108 H 112 H Carbon Dioxide 25 21 L BUN 17 23 Creatinine 0.84 0.93 Glucose 147 H 154 H Calcium 8.5 L 8.0 L Liver Function 05/30/18 05/31/18 Range/Units 15:39 05:09 Total Bilirubin 0.5 0.4 (0.3-1.0) mg/dL AST 21 19 (13-39) Units/L ALT 18 19 (7-52) Units/L Alkaline Phosphatase 76 71 (34-104) Units/L Albumin 4.1 3.8 (3.5-5.7) g/dL - ABG Interpretation ABG results: PT/INR, D-dimer PT 13.2 Seconds (9.4-12.1) H 05/31/18 05:09 - Impressions Impressions Biopsy CT 05/30/18 00:00 IMPRESSION: Successful CT guided bone marrow aspiration and core biopsy of the right iliac bone. D/ / Pito Duong / Pito Duong Interpreting Provider: Pito Duong Bone Marrow Biopsy w/ CT 05/30/18 00:00 IMPRESSION: Successful CT guided bone marrow aspiration and core biopsy of the right iliac bone. D/ / Pito Duong / Pito Duong Interpreting Provider: Pito Duong Consult Discharge Plan - Plan Referrals: Tanner,Kalen J, DO [Primary Care Provider] - <Mamie Cárdenas - Last Filed: 05/31/18 12:50> Hospitalist Progress Note - Encounter Date of Encounter: 05/31/18 Time of Encounter: 10:00 - Subjective Interval History: Patient is awake and alert. He underwent bone marrow biopsy yesterday without any complaints. Denies any new symptoms. No abdominal pain. No nausea or vomiting. - Exam Vitals: Temp Pulse Resp BP Pulse Ox 98.2 F 69 18 112/70 95 05/31/18 10:26 05/31/18 10:26 05/31/18 10:26 05/31/18 10:26 05/31/18 10:26 Exam: General: Patient is alert, no acute distress, oriented x 3 Respiratory: Good respiratory effort. Normal breath sounds. No wheezing or crackles. Cardiovascular: Regular rate and rhythm. S1 and S2 normal No clicks, rubs, gallops, or murmurs. No pedal edema Abdomen: Abdomen is soft, nontender. Bowel sounds are present. Scrotal edema Musculoskeletal: Spontaneously moving all extremities Skin: warm, dry, intact. Neuro: Alert oriented x 3 normal cranial nerves, no focal deficits - Assessment and Plan (1) CLL (chronic lymphocytic leukemia) Current Visit: Yes Status: Chronic Assessment and Plan: Status post lymph node biopsy and bone marrow biopsy. Awaiting results from pathology. Will continue management per oncology recommendations. On Solu- Medrol intravenously. (2) Scrotal swelling Current Visit: Yes Status: Acute Assessment and Plan: Scrotal edema due to intra-abdominal and inguinal adenopathy. On systemic steroids per oncology recommendations. (3) Hypothyroidism (acquired) Current Visit: Yes Status: Chronic Assessment and Plan: On levothyroxin (4) Abdominal lymphadenopathy Current Visit: Yes Status: Acute Assessment and Plan: Status post lymph node biopsy in the left axillary region. Awaiting biopsy resu lts before deciding on appropriate treatment plan. From CLL. Concern for transformation to high-grade lymphoma. (5) Bilateral hydronephrosis Current Visit: Yes Status: Acute (6) DVT prophylaxis Current Visit: Yes Status: Acute Assessment and Plan: Continue subcutaneous heparin (7) Bladder wall thickening Current Visit: Yes Status: Acute Assessment and Plan: Plan to follow up with urology as outpatient to see if patient would benefit from stents. (8) Leukocytosis Current Visit: Yes Status: Acute Assessment and Plan: WBC 29.5 today. - Time Spent with Patient Total time spent is greater than 50% in coordination of care (as documented) at patient's floor/unit and/or counseling patient: Internal Medicine: Result - Labs CBC & Chem 7: 05/31/18 05:09 05/31/18 05:09 Labs: Short CBC 05/30/18 05/31/18 Range/Units 15:39 05:09 WBC 33.8 H* 29.5 H (4.3-11.1) K/mcL Hgb 12.1 L 11.0 L (12.9-16.9) g/dL Hct 37.0 L 33.5 L (37.5-50.1) % Plt Count 79 L 68 L (140-400) K/mcL Neutrophils # 8.8 9.4 H (1.6-8.9) K/mcL BMP 05/30/18 05/31/18 15:39 05:09 Sodium 142 142 Potassium 3.7 4.0 Chloride 108 H 112 H Carbon Dioxide 25 21 L BUN 17 23 Creatinine 0.84 0.93 Glucose 147 H 154 H Calcium 8.5 L 8.0 L Liver Function 05/30/18 05/31/18 Range/Units 15:39 05:09 Total Bilirubin 0.5 0.4 (0.3-1.0) mg/dL AST 21 19 (13-39) Units/L ALT 18 19 (7-52) Units/L Alkaline Phosphatase 76 71 (34-104) Units/L Albumin 4.1 3.8 (3.5-5.7) g/dL - ABG Interpretation ABG results: PT/INR, D-dimer PT 13.2 Seconds (9.4-12.1) H 05/31/18 05:09 - Impressions Impressions Biopsy CT 05/30/18 00:00 IMPRESSION: Successful CT guided bone marrow aspiration and core biopsy of the right iliac bone. D/ / Pito Duong / Pito Duong Interpreting Provider: Pito Duong Bone Marrow Biopsy w/ CT 05/30/18 00:00 IMPRESSION: Successful CT guided bone marrow aspiration and core biopsy of the right iliac bone. D/ / Pito Duong / Pito Duong Interpreting Provider: Pito Duong - Attending Attestation The history, physical exam, and medical decision making was performed by the medical student either while I was physically present and actively involved or I personally re-performed the exam and medical decision making. I have verified the accuracy of the medical student's documentation with regards to the history, physical exam findings, and medical decision making on 05/31/18 <Kenzie Balderas U - Last Filed: 05/31/18 11:49> (2) Anemia Qualifiers: Anemia type: unspecified type Qualified Code(s): D64.9 - Anemia, unspecified (7) Leukocytosis Qualifiers: Leukocytosis type: unspecified Qualified Code(s): D72.829 - Elevated white blood cell count, unspecified <Mamie Cárdenas - Last Filed: 05/31/18 12:50> (8) Leukocytosis Qualifiers: Leukocytosis type: unspecified Qualified Code(s): D72.829 - Elevated white bl ood cell count, unspecified
[2018-05-31 15:27] LABS: Immunoglobulin A 35 mg/dL (68-408); Immunoglobulin G 642 mg/dL (768-1632); Immunoglobulin M 107 mg/dL (35-263)
[2018-05-31 16:37] LABS: Hematocrit 32.9 % (37.5-50.1); Hemoglobin 10.6 g/dL (12.9-16.9); INR 1.1; Mean Corpuscular HGB Conc 32.2 g/dL (31.6-35.5); Mean Corpuscular Hemoglobin 31.5 pg (28.0-33.3); Mean Corpuscular Volume 97.6 fL (83.0-100.0); Mean Platelet Volume 12.5 fL (9.4-12.4); Platelet Count 66 K/mcL (140-400); Prothrombin Time 12.8 Seconds (9.4-12.1); Red Blood Count 3.37 M/mcL (4.19-5.50); Red Cell Distribution Width 15.9 % (11.5-14.5)
[2018-05-31 16:45] LABS: Magnesium 2.3 mg/dL (1.6-2.6); Phosphorous 3.3 mg/dL (2.7-4.5); Uric Acid 4.5 mg/dL (2.3-7.6)
[2018-05-31 16:47] LABS: Alanine Aminotransferase 21 Units/L (7-52); Albumin 3.8 g/dL (3.5-5.7); Albumin/Globulin Ratio 2.2 (1.1-2.2); Alkaline Phosphatase 69 Units/L (34-104); Aspartate Amino Transferase 20 Units/L (13-39); BUN/Creatinine Ratio 28 (6-26); Bilirubin,Total 0.3 mg/dL (0.3-1.0); Blood Urea Nitrogen 27 mg/dL (8-23); Calcium 7.8 mg/dL (8.6-10.3); Carbon Dioxide 21 mEq/L (23-29); Chloride 114 mEq/L (98-107); Globulin 1.7 g/dL (2.4-3.5); Glucose 187 mg/dL (70-105); Osmolality,Calculated 304 (280-300); Sodium 142 mEq/L (136-145); Total Protein 5.5 g/dL (6.4-8.9); eGFR For Non-African Americans > 60 (> 60)
[2018-05-31 17:29] LABS: Lymphocytes # 23.6 K/mcL (0.6-4.6); Monocytes # 1.1 K/mcL (0.0-1.3); Neutrophils # 2.7 K/mcL (1.6-8.9); Platelet Estimate Decreased (Normal); Reactive Lymphocytes Present (Not Present)
[2018-05-31] MEDS: methylPREDNISolone 125 MG/2 ML VIAL IVP SCH (18:22)
[2018-06-01] MEDS: methylPREDNISolone 125 MG/2 ML VIAL IVP SCH (03:50)
[2018-06-01] MEDS: 0.9 % Sodium Chloride 1,000 ML IVC SCH (03:53)
[2018-06-01] MEDS: *HR* Heparin 5,000 UNIT/ML VIAL SQ SCH (05:56)
[2018-06-01 07:49] LABS: Hematocrit 35.3 % (37.5-50.1); Hemoglobin 11.2 g/dL (12.9-16.9); Immature Platelets 16.4 % (1.1-6.1); Mean Corpuscular HGB Conc 31.7 g/dL (31.6-35.5); Mean Corpuscular Hemoglobin 31.6 pg (28.0-33.3); Mean Corpuscular Volume 99.7 fL (83.0-100.0); Red Blood Count 3.54 M/mcL (4.19-5.50)
[2018-06-01 07:54] LABS: INR 1.2; Prothrombin Time 13.1 Seconds (9.4-12.1)
[2018-06-01 08:06] LABS: Alanine Aminotransferase 31 Units/L (7-52); Albumin 3.8 g/dL (3.5-5.7); Albumin/Globulin Ratio 2.2 (1.1-2.2); Alkaline Phosphatase 68 Units/L (34-104); Aspartate Amino Transferase 26 Units/L (13-39); BUN/Creatinine Ratio 27 (6-26); Bilirubin,Total 0.3 mg/dL (0.3-1.0); Blood Urea Nitrogen 25 mg/dL (8-23); Calcium 7.7 mg/dL (8.6-10.3); Carbon Dioxide 22 mEq/L (23-29); Chloride 114 mEq/L (98-107); Globulin 1.7 g/dL (2.4-3.5); Glucose 159 mg/dL (70-105); Lactate Dehydrogenase 224 Units/L (140-271); Magnesium 2.5 mg/dL (1.6-2.6); Osmolality,Calculated 302 (280-300); Phosphorous 3.4 mg/dL (2.7-4.5); Potassium 3.9 mEq/L (3.5-5.1); Sodium 142 mEq/L (136-145); Total Protein 5.5 g/dL (6.4-8.9); Uric Acid 3.9 mg/dL (2.3-7.6); eGFR For Non-African Americans > 60 (> 60)
[2018-06-01 08:12] LABS: Platelet Count 64 K/mcL (140-400)
[2018-06-01 08:16] LABS: Lymphocytes # 15.1 K/mcL (0.6-4.6); Monocytes # 3.7 K/mcL (0.0-1.3); Neutrophils # 4.1 K/mcL (1.6-8.9)
[2018-06-01 08:18] LABS: Platelet Estimate Decreased (Normal)
[2018-06-01] MEDS: Insulin LISPRO 300 UNITS/3 ML VIAL SQ SCH ×2 (08:33→11:47)
[2018-06-01] MEDS: Cyanocobalamin (B-12) 1,000 MCG/ML VIAL IM SCH (08:44)
--- NOTE | 2018-06-01 10:31 | Oncology Inp Progress Note ---
<AlpeshBrandon Jacquelyn - Last Filed: 06/01/18 13:00> Date of Encounter: 06/01/18 Time of Encounter: 10:05 (1) Generalized lymphadenopathy Status: Acute Assessment and plan: Progressive generalized MARYJANE, splenomegaly, scrotal swelling and premature cells on differential concerning for Magallon's transformation vs transformation to leukemia Patient has CLL, initially concerning for progression to high grade lymphoma Patient had US guided LN 05/29, report pending, have spoken with [facility] and preliminarily appears consistent with CLL Patient had CT guided BM biopsy 05/30--results pending HIV, Hep B, Hep C non-reactive Plan- -From Oncology view now okay to discharge with outpatient follow up. Patient will need to continue with steriod taper as below and we would prefer he pickle maker medication from our pharmacy prior to discharge. -LN biopsy- final pathology pending with FISH, cytogenetics and flow cytometry. Preliminarily appears consistent with CLL. -Will decrease solumedrol to 100 mg Q24 and plan to taper from this with Prednisone 60 mg daily for 3 days, then 50 mg daily for 3 days, 40 mg daily for 3 days and so on down to a dose of 10 mg daily for 3 days -BM bx - results pending with FISH, cytogenetics and flow cytometry -Pending labs: peripheral blood flow cytometery. PCR BCR-ABL, FISH t (9;22) of LN and BM bx. (2) Anemia Status: Acute Assessment and plan: Anemia likely secondary to underlying CLL LDH 286; Fe 95, iron saturation 36% transferrin 188. Folic acid 22.1 Vit B12 233 AUBRIE negative Plan: -Have completed 5 day course of Vit B12 mcg. Can continue as an outpatient with weekly B12 and later monthly as deficiency resolves. -Pending labs: haptoglobin, SPEP, serum immunoelectrophoresis, serum free K/L light chains, Immunoglobulins (IgA, IgM, IgG) Qualifiers: Anemia type: unspecified type Qualified Code(s): D64.9 - Anemia, unspecified (3) CLL (chronic lymphocytic leukemia) Status: Chronic Assessment and plan: Treatment as above (4) Bilateral hydronephrosis Status: Acute Assessment and plan: Left greater than right on CT images. Secondary to massive retroperitoneal adenopathy. Renal function normal at this time. Urology feels prophylactic placement of bilateral stents is the most appropriate course of action until his adenopathy responds to systemic therapy, however pt wishes to hold off on procedure pending bx results and heme/onc recs. Plan: -s/p BM and LN biopsies with final pathology and testing pending -urology consulted and recommending stent placement, patient declined inpatient placement and plans to follow with urology as outpatient for possible placement. (5) Bladder wall thickening Status: Acute Assessment and plan: Urology following, believes this is related to voiding against resistance. Considering cystoscopic evaluation. (6) Scrotal swelling Status: Acute Assessment and plan: Likely secondary to retroperitoneal, pelvic and inguinal adenopathy Pt on high dose steroid taper Per patient this swelling is improving Plan: Continue steroid taper Oncology: Subj Interval history: Patient seen and evaluated at the bedside. Reports no complaints today. Has been in the hospital longer than he would like. Feels that his enlarged lymph nodes are improving. Denies any difficulty with voiding. Denies nausea, vomiting, bowel changes. No headaches, visual changes, cough, fever, chills. - Constitutional Vitals: Vital Signs Temp Pulse Resp BP Pulse Ox 06/01/18 07:41 98.1 F 46 14 143/76 96 05/31/18 21:06 95 05/31/18 19:43 97.4 F L 46 15 124/67 96 05/31/18 16:27 97.4 F L 52 15 131/65 96 05/31/18 10:26 98.2 F 69 18 112/70 95 Intake and Output 05/31/18 06/01/18 06/01/18 23:59 07:59 15:59 Intake Total 1500 / 1500 1000 / 1000 360 / 360 Output Total 750 / 750 600 / 600 Balance 750 / 750 400 / 400 360 / 360 Intake: IV Fluids 1000 / 1000 1000 / 1000 0.9 % Sodium Chloride 1,000 ML 1000 / 1000 1000 / 1000 @ 125 mls/hr IVC .Q8H [facility] Rx#: [id number] Oral 500 / 500 360 / 360 Output: Urine 750 / 750 600 / 600 Other: Meal Breakfast Percent of Meal Consumed 100% Blood Glucose* 208 216 General appearance: average body habitus, no acute distress - Head Head exam: Present: atraumatic, normocephalic - Eye Eye exam: Present: PERRL, conjuntiva pink - ENT ENT exam: Present: mucous membranes moist - Neck Neck exam: Present: full ROM, lymphadenopathy. Absent: tenderness - Respiratory Respiratory exam: Present: CTAB, rales (bibasilar rales present) - Cardiovascular Cardiovascular exam: Present: RRR, +S1, +S2. Absent: diastolic murmur, systolic murmur - GI/Abdominal GI/Abdominal exam: Present: normal bowel sounds, soft. Absent: distended, guarding, rigid - exam: Present: normal inspection. Absent: scrotal swelling - Extremities Exam Extremities exam: Present: normal inspection. Absent: pedal edema, tenderness - Back Exam Back exam: Present: normal inspection - Neurological Exam Neurological exam: Present: alert, CN II-XII intact, oriented X3, no focal deficits - Psychiatric Psychiatric exam: Present: normal affect, normal mood - Skin Skin exam: Present: dry Oncology: Obj Data - Labs CBC & Chem 7: 06/01/18 07:02 06/01/18 07:02 Labs: Laboratory Results - last 24 hr 05/28/18 05/28/18 05/31/18 14:25 14:25 07:52 WBC RBC Hgb Hct MCV MCH MCHC RDW Plt Count MPV Seg Neutrophils % Band Neutrophils % Lymphocytes % Monocytes % Neutrophils # Lymphocytes # Monocytes # Reactive Lymphocytes Platelet Estimate Immature Plt Fraction Haptoglobin 107 PT INR Fibrinogen Sodium Potassium Chloride Carbon Dioxide BUN Creatinine Est GFR ( Amer) Est GFR (Non-Af Amer) BUN/Creatinine Ratio Glucose POC Glucose 132 H Calculated Osmolality Uric Acid Calcium Phosphorus Magnesium Total Bilirubin AST ALT Alkaline Phosphatase Lactate Dehydrogenase Serum Total Protein Albumin Globulin Albumin/Globulin Ratio IgG 642 L IgA 35 L IgM 107 05/31/18 05/31/18 05/31/18 11:25 16:08 16:08 WBC 27.4 H RBC 3.37 L Hgb 10.6 L Hct 32.9 L MCV 97.6 MCH 31.5 MCHC 32.2 RDW 15.9 H Plt Count 66 L MPV 12.5 H Seg Neutrophils % 8.0 Band Neutrophils % 2.0 Lymphocytes % 86.0 Monocytes % 4.0 Neutrophils # 2.7 Lymphocytes # 23.6 H Monocytes # 1.1 Reactive Lymphocytes Present A Platelet Estimate Decreased L Immature Plt Fraction Haptoglobin PT INR Fibrinogen Sodium 142 Potassium 4.0 Chloride 114 H Carbon Dioxide 21 L BUN 27 H Creatinine 0.97 Est GFR ( Amer) > 60 Est GFR (Non-Af Amer) > 60 BUN/Creatinine Ratio 28 H Glucose 187 H POC Glucose 183 H Calculated Osmolality 304 H Uric Acid Calcium 7.8 L Phosphorus Magnesium Total Bilirubin 0.3 AST 20 ALT 21 Alkaline Phosphatase 69 Lactate Dehydrogenase Serum Total Protein 5.5 L Albumin 3.8 Globulin 1.7 L Albumin/Globulin Ratio 2.2 IgG IgA IgM 05/31/18 05/31/18 05/31/18 16:08 16:08 16:08 WBC RBC Hgb Hct MCV MCH MCHC RDW Plt Count MPV Seg Neutrophils % Band Neutrophils % Lymphocytes % Monocytes % Neutrophils # Lymphocytes # Monocytes # Reactive Lymphocytes Platelet Estimate Immature Plt Fraction Haptoglobin PT 12.8 H INR 1.1 Fibrinogen 159 L Sodium Potassium Chloride Carbon Dioxide BUN Creatinine Est GFR ( Amer) Est GFR (Non-Af Amer) BUN/Creatinine Ratio Glucose POC Glucose Calculated Osmolality Uric Acid 4.5 Calcium Phosphorus 3.3 Magnesium 2.3 Total Bilirubin AST ALT Alkaline Phosphatase Lactate Dehydrogenase 237 Serum Total Protein Albumin Globulin Albumin/Globulin Ratio IgG IgA IgM 05/31/18 06/01/18 06/01/18 20:12 07:02 07:02 WBC 22.9 H RBC 3.54 L Hgb 11.2 L Hct 35.3 L MCV 99.7 MCH 31.6 MCHC 31.7 RDW 16.0 H Plt Count 64 L MPV 14.0 H Seg Neutrophils % 18.0 Band Neutrophils % Lymphocytes % 66.0 Monocytes % 16.0 Neutrophils # 4.1 Lymphocytes # 15.1 H Monocytes # 3.7 H Reactive Lymphocytes Platelet Estimate Decreased L Immature Plt Fraction 16.4 H Haptoglobin PT INR Fibrinogen Sodium 142 Potassium 3.9 Chloride 114 H Carbon Dioxide 22 L BUN 25 H Creatinine 0.91 Est GFR ( Amer) > 60 Est GFR (Non-Af Amer) > 60 BUN/Creatinine Ratio 27 H Glucose 159 H POC Glucose 208 H Calculated Osmolality 302 H Uric Acid 3.9 Calcium 7.7 L Phosphorus 3.4 Magnesium 2.5 Total Bilirubin 0.3 AST 26 ALT 31 Alkaline Phosphatase 68 Lactate Dehydrogenase 224 Serum Total Protein 5.5 L Albumin 3.8 Globulin 1.7 L Albumin/Globulin Ratio 2.2 IgG IgA IgM 06/01/18 07:02 WBC RBC Hgb Hct MCV MCH MCHC RDW Plt Count MPV Seg Neutrophils % Band Neutrophils % Lymphocytes % Monocytes % Neutrophils # Lymphocytes # Monocytes # Reactive Lymphocytes Platelet Estimate Immature Plt Fraction Haptoglobin PT 13.1 H INR 1.2 Fibrinogen 158 L Sodium Potassium Chloride Carbon Dioxide BUN Creatinine Est GFR ( Amer) Est GFR (Non-Af Amer) BUN/Creatinine Ratio Glucose POC Glucose Calculated Osmolality Uric Acid Calcium Phosphorus Magnesium Total Bilirubin AST ALT Alkaline Phosphatase Lactate Dehydrogenase Serum Total Protein Albumin Globulin Albumin/Globulin Ratio IgG IgA IgM - ABG Interpretation ABG results: PT/INR, D-dimer PT 13.1 Seconds (9.4-12.1) H 06/01/18 07:02 Consult Discharge Plan - Plan Instructions: Anemia (GEN), Chronic Lymphocytic Leukemia (GEN) Additional Instructions: Follow up with oncology as scheduled Follow up with urology as scheduled Take all medications as prescribed including steroid taper Referrals: Alvarado Sellers DO [Partnered Physician] - 06/06/18 12:30 pm Sidney Potts MD [Partnered Physician] - 06/07/18 8:15 am Kyler Ramos [Partnered Physician] - 06/07/18 10:45 am (If the appointment with Dr. Potts seems to run long and gets close to this appointment, just call the office and they will move it out later. Thank you) Prescriptions: predniSONE [PredniSONE] 10 mg PO DAILY 18 Days #63 tablet <Noam Engle - Last Filed: 06/01/18 16:11> Date of Encounter: 06/01/18 - Constitutional Vitals: Vital Signs Temp Pulse Resp BP Pulse Ox 06/01/18 10:40 98.1 F 48 16 126/65 95 06/01/18 07:41 98.1 F 46 14 143/76 96 05/31/18 21:06 95 05/31/18 19:43 97.4 F L 46 15 124/67 96 05/31/18 16:27 97.4 F L 52 15 131/65 96 Intake and Output 06/01/18 06/01/18 06/01/18 00:59 08:59 16:59 Intake Total 500 / 500 1000 / 1000 1600 / 1600 Output Total 750 / 750 600 / 600 700 / 700 Balance -250 / -250 400 / 400 900 / 900 Intake: IV Fluids 1000 / 1000 1000 / 1000 0.9 % Sodium Chloride 1,000 ML 1000 / 1000 1000 / 1000 @ 125 mls/hr IVC .Q8H [facility] Rx#: [id number] Oral 500 / 500 600 / 600 Output: Urine 750 / 750 600 / 600 700 / 700 Other: Meal Lunch Percent of Meal Consumed 100% Blood Glucose* 208 216 201 Oncology: Obj Data - Labs CBC & Chem 7: 06/01/18 07:02 06/01/18 07:02 Labs: Laboratory Results - last 24 hr 05/28/18 05/31/18 05/31/18 14:25 07:52 16:08 WBC 27.4 H RBC 3.37 L Hgb 10.6 L Hct 32.9 L MCV 97.6 MCH 31.5 MCHC 32.2 RDW 15.9 H Plt Count 66 L MPV 12.5 H Seg Neutrophils % 8.0 Band Neutrophils % 2.0 Lymphocytes % 86.0 Monocytes % 4.0 Neutrophils # 2.7 Lymphocytes # 23.6 H Monocytes # 1.1 Reactive Lymphocytes Present A Platelet Estimate Decreased L Immature Plt Fraction PT INR Fibrinogen Sodium Potassium Chloride Carbon Dioxide BUN Creatinine Est GFR ( Amer) Est GFR (Non-Af Amer) BUN/Creatinine Ratio Glucose POC Glucose 132 H Calculated Osmolality Uric Acid Calcium Phosphorus Magnesium Total Bilirubin AST ALT Alkaline Phosphatase Lactate Dehydrogenase Serum Total Protein Albumin Globulin Albumin/Globulin Ratio Free [place] LC, Quant 12.60 H Free Lambda LC, Quant 1.06 Free [place]/Lambda Ratio 11.89 H 05/31/18 05/31/18 05/31/18 16:08 16:08 16:08 WBC RBC Hgb Hct MCV MCH MCHC RDW Plt Count MPV Seg Neutrophils % Band Neutrophils % Lymphocytes % Monocytes % Neutrophils # Lymphocytes # Monocytes # Reactive Lymphocytes Platelet Estimate Immature Plt Fraction PT INR Fibrinogen Sodium 142 Potassium 4.0 Chloride 114 H Carbon Dioxide 21 L BUN 27 H Creatinine 0.97 Est GFR ( Amer) > 60 Est GFR (Non-Af Amer) > 60 BUN/Creatinine Ratio 28 H Glucose 187 H POC Glucose Calculated Osmolality 304 H Uric Acid 4.5 Calcium 7.8 L Phosphorus 3.3 Magnesium 2.3 Total Bilirubin 0.3 AST 20 ALT 21 Alkaline Phosphatase 69 Lactate Dehydrogenase 237 Serum Total Protein 5.5 L Albumin 3.8 Globulin 1.7 L Albumin/Globulin Ratio 2.2 Free [place] LC, Quant Free Lambda LC, Quant Free [place]/Lambda Ratio 05/31/18 05/31/18 06/01/18 16:08 20:12 07:02 WBC 22.9 H RBC 3.54 L Hgb 11.2 L Hct 35.3 L MCV 99.7 MCH 31.6 MCHC 31.7 RDW 16.0 H Plt Count 64 L MPV 14.0 H Seg Neutrophils % 18.0 Band Neutrophils % Lymphocytes % 66.0 Monocytes % 16.0 Neutrophils # 4.1 Lymphocytes # 15.1 H Monocytes # 3.7 H Reactive Lymphocytes Platelet Estimate Decreased L Immature Plt Fraction 16.4 H PT 12.8 H INR 1.1 Fibrinogen 159 L Sodium Potassium Chloride Carbon Dioxide BUN Creatinine Est GFR ( Amer) Est GFR (Non-Af Amer) BUN/Creatinine Ratio Glucose POC Glucose 208 H Calculated Osmolality Uric Acid Calcium Phosphorus Magnesium Total Bilirubin AST ALT Alkaline Phosphatase Lactate Dehydrogenase Serum Total Protein Albumin Globulin Albumin/Globulin Ratio Free [place] LC, Quant Free Lambda LC, Quant Free [place]/Lambda Ratio 06/01/18 06/01/18 07:02 07:02 WBC RBC Hgb Hct MCV MCH MCHC RDW Plt Count MPV Seg Neutrophils % Band Neutrophils % Lymphocytes % Monocytes % Neutrophils # Lymphocytes # Monocytes # Reactive Lymphocytes Platelet Estimate Immature Plt Fraction PT 13.1 H INR 1.2 Fibrinogen 158 L Sodium 142 Potassium 3.9 Chloride 114 H Carbon Dioxide 22 L BUN 25 H Creatinine 0.91 Est GFR ( Amer) > 60 Est GFR (Non-Af Amer) > 60 BUN/Creatinine Ratio 27 H Glucose 159 H POC Glucose Calculated Osmolality 302 H Uric Acid 3.9 Calcium 7.7 L Phosphorus 3.4 Magnesium 2.5 Total Bilirubin 0.3 AST 26 ALT 31 Alkaline Phosphatase 68 Lactate Dehydrogenase 224 Serum Total Protein 5.5 L Albumin 3.8 Globulin 1.7 L Albumin/Globulin Ratio 2.2 Free [place] LC, Quant Free Lambda LC, Quant Free [place]/Lambda Ratio - ABG Interpretation ABG results: PT/INR, D-dimer PT 13.1 Seconds (9.4-12.1) H 06/01/18 07:02 Inpatient Charges Provider: Dr. Amy Engle Follow up - Inpatient: [id number] - Attending Attestation I examined this patient and my medical decision-making was reviewed with the Advanced Practice Nurse. I agree with the documented findings, disposition and treatment plan as described except to the extent set forth below. Spoke with [facility], Dr. Roche. LN biopsy and BMB c/w CLL. FISH and CGs pending from both. Will d/c home on steroid taper and have him f/u with Dr. Potts on an outpatient basis.
[2018-06-01 10:44] VITALS: BP 126/65
--- NOTE | 2018-06-01 11:34 | Discharge Summary ---
<RonalisraelSandra E - Last Filed: 06/01/18 11:40> Orders not resulted at time of discharge: Pending orders 05/27/18 11:19 Tissue Flow Cytometry Routine 05/28/18 13:47 Protein Electrophoresis Stat 05/28/18 14:25 BCR-ABL1t(9;22)Diag,Rflx Quant Stat Immunoelectrophoresis Stat Peripheral Bld Flow-[facility] Stat Serum Free Light Chain [[place] Lambda Qnt FLC w Ratio] Stat 05/29/18 16:04 Bone Marrow, Flow & Cytogen Routine 05/31/18 05:09 Hepatitis B Core Ab Total AM 0400 06/02/18 04:00 Basic Metabolic Panel AM 0400 06/03/18 04:00 Basic Metabolic Panel AM 0400 Date of Encounter: 06/01/18 Hospital course: see above Discharge discussed with: patient - Time Spent with Patient Total time spent providing and/or coordinating discharge services: - Discharge Medications Prescriptions: predniSONE [PredniSONE] 10 mg PO DAILY 18 Days #63 tablet Home Medications: Folic Acid 1 mg PO DAILY #90 tablet 04/01/17 [Rx] Aspirin/Acetaminophen/Caffeine [Excedrin Extra Strength Caplet] 2 tab PO Q12H PRN 03/06/18 [History] Levothyroxine [Synthroid] 150 mcg PO DAILY #90 tablet 05/02/18 [Rx] predniSONE [PredniSONE] 10 mg PO DAILY 18 Days #63 tablet 06/01/18 [Rx] Allergies/Adverse Reactions: Allergy/AdvReac Type Severity Reaction Status Date / Time No Known Allergies Allergy Verified 05/26/18 22:47 Date of admission: 05/27/18 03:40 Primary care physician: Kalen Hart DO Consults: 05/27/18 00:53 Consult to Oncology [CONS] Routine Consulting Provider: [facility] Reason for Consult: Hx of CLL and papillary thyroid carcinoma - abdominal CT shows massive adenopathy most consistent with lymphoma Time Notified: 00:56 Call Completed: No 05/27/18 11:19 Consult to Interventional Radiology [CONS] Routine Consulting Provider: [facility] Reason for Consult: ct guided lymph node biopsy (most accessible and bone marrow biopsy Call Completed: No 05/27/18 14:09 Consult to Urology [CONS] Routine Consulting Provider: [facility] Reason for Consult: hydronephrosis likely secondary to lymphoma Call Completed: No - Constitutional Vitals: Temp Pulse Resp BP Pulse Ox 98.1 F 48 16 126/65 95 06/01/18 10:40 06/01/18 10:40 06/01/18 10:40 06/01/18 10:40 06/01/18 10:40 - Patient Status Disposition: Home, Self-Care Condition: Good Functional capacity at discharge: independent ambulation Overall status at discharge: patient is progressing back to baseline - Discharge Instructions Instructions: Chronic Lymphocytic Leukemia (GEN), Anemia (GEN) Follow Up With: Kalen Hart DO [Primary Care Provider] - [facility] [Provider Group] (1 week) [facility] [Provider Group] (1 week) Additional Instructions: Follow up with oncology as scheduled Follow up with urology as scheduled Take all medications as prescribed including steroid taper - Diet and Activity Activity: increase activity as tolerated Diet: advance to your usual diet <Kenzie Balderas U - Last Filed: 06/01/18 11:43> - NOTES TO OUTPATIENT PROVIDER Notes to Outpatient Provider: Follow up with oncology for LN/BM biopsy results + management. Follow up with urology for stent placement for hydronephrosis Orders not resulted at time of discharge: Pending orders 05/27/18 11:19 Tissue Flow Cytometry Routine 05/28/18 13:47 Protein Electrophoresis Stat 05/28/18 14:25 BCR-ABL1t(9;22)Diag,Rflx Quant Stat Immunoelectrophoresis Stat Peripheral Bld Flow-[facility] Stat Serum Free Light Chain [[place] Lambda Qnt FLC w Ratio] Stat 05/29/18 16:04 Bone Marrow, Flow & Cytogen Routine 05/31/18 05:09 Hepatitis B Core Ab Total AM 0400 06/02/18 04:00 Basic Metabolic Panel AM 0400 06/03/18 04:00 Basic Metabolic Panel AM 0400 Date of Encounter: 06/01/18 Time of Encounter: 08:50 - Discharge Diagnosis (1) Generalized lymphadenopathy Priority: Primary Status: Acute (2) Anemia Priority: Secondary Status: Acute Qualifiers: Anemia type: unspecified type Qualified Code(s): D64.9 - Anemia, unspecified (3) CLL (chronic lymphocytic leukemia) Priority: Secondary Status: Chronic (4) Bilateral hydronephrosis Priority: Secondary Status: Acute (5) Scrotal swelling Priority: Secondary Status: Acute (6) Bladder wall thickening Priority: Secondary Status: Acute (7) Leukocytosis Priority: Secondary Status: Chronic Qualifiers: Leukocytosis type: unspecified Qualified Code(s): D72.829 - Elevated white blood cell count, unspecified (8) Hypothyroidism (acquired) Priority: Secondary Status: Chronic (9) DVT prophylaxis Priority: Secondary Status: Acute Hospital course: Mr. Sparrow is a 63 year old male with a hospital stay from 05/26/18 to 06/01/18. He presented to the ED with right lower groin pain and swelling around penile shaft with scrotal swelling. Pt has a PMH of CLL, HTN, kidney stones, and hypothyroidism. The pt had nontender swollen submandinular, supraclavicular, and axillary LN. There was concern for [place] transformation of CLL to acute form. A series of tests were formed over his hospital stay and are as follows: - Brain MRI: - no acute intracranial abnormalities - pituitary adenoma - recommend getting pituitary specific MRI w/ and w/o contrast - Chest CT: - extensive adenopathy consistent w/ hx of lymphoma - focal opacity of posterior right lobe possibly pneumonia, pulmonary lymphoma, or bronchogenic carcinoma - subsolid 3-4 mm left upper lobe nodule, nonspecific - LN biopsy - results currently pending - BM biopsy - results currently pending Pt continued to stay on allopurinol and after his biopsies was started on solmuderol, SSI added. Pt will have pending labs run including cytogenetics, flow cytometry, and PCR BCR-ABL as well. Pt is currently stable with no acute complaints, decreased swelling of lymph nodes. Pt will follow outpatient with oncology. Pt was also found to have B/L hydronephrosis and is in need of stent placement, urology recommended prophylactic placement of stents, but pt wishes to have this procedure done as outpatient with urology. Discharge discussed with: patient - Time Spent with Patient Total time spent providing and/or coordinating discharge services: Date of admission: 05/27/18 03:40 Primary care physician: Kalen Hart DO Consults: 05/27/18 00:53 Consult to Oncology [CONS] Routine Consulting Provider: [facility] Reason for Consult: Hx of CLL and papillary thyroid carcinoma - abdominal CT shows massive adenopathy most consistent with lymphoma Time Notified: 00:56 Call Completed: No 05/27/18 11:19 Consult to Interventional Radiology [CONS] Routine Consulting Provider: [facility] Reason for Consult: ct guided lymph node biopsy (most accessible and bone marrow biopsy Call Completed: No 05/27/18 14:09 Consult to Urology [CONS] Routine Consulting Provider: [facility] Reason for Consult: hydronephrosis likely secondary to lymphoma Call Completed: No Discharging clinician: Mamie Cárdenas Anticipated date of discharge: 06/01/18 - Constitutional Vitals: Temp Pulse Resp BP Pulse Ox 98.1 F 48 16 126/65 95 06/01/18 10:40 06/01/18 10:40 06/01/18 10:40 06/01/18 10:40 06/01/18 10:40 Exam: General: Patient is alert, no acute distress, oriented x 3 Respiratory: Good respiratory effort. Normal breath sounds. No wheezing or crackles. Cardiovascular: Regular rate and rhythm. S1 and S2 normal No clicks, rubs, gallops, or murmurs. No pedal edema Abdomen: Abdomen is soft, nontender. Bowel sounds are present. Scrotal edema Musculoskeletal: Spontaneously moving all extremities Skin: warm, dry, intact. Neuro: Alert oriented x 3 normal cranial nerves, no focal deficits - Patient Status Functional capacity at discharge: independent ambulation Overall status at discharge: patient is progressing back to baseline <Mamie Cárdenas - Last Filed: 06/01/18 12:27> Orders not resulted at time of discharge: Pending orders 05/27/18 11:19 Tissue Flow Cytometry Routine 05/28/18 13:47 Protein Electrophoresis Stat 05/28/18 14:25 BCR-ABL1t(9;22)Diag,Rflx Quant Stat Immunoelectrophoresis Stat Peripheral Bld Flow-[facility] Stat Serum Free Light Chain [[place] Lambda Qnt FLC w Ratio] Stat 05/29/18 16:04 Bone Marrow, Flow & Cytogen Routine 05/31/18 05:09 Hepatitis B Core Ab Total AM 0400 06/02/18 04:00 Basic Metabolic Panel AM 0400 06/03/18 04:00 Basic Metabolic Panel AM 0400 Date of Encounter: 06/01/18 Time of Encounter: 09:15 - Discharge Diagnosis (1) CLL (chronic lymphocytic leukemia) Status: Chronic (2) Scrotal swelling Status: Acute (3) Hypothyroidism (acquired) Status: Chronic (4) Abdominal lymphadenopathy Status: Acute (5) Bilateral hydronephrosis Status: Acute (6) DVT prophylaxis Status: Acute (7) Bladder wall thickening Status: Acute (8) Leukocytosis Status: Acute Qualifiers: Leukocytosis type: unspecified Qualified Code(s): D72.829 - Elevated white blood cell count, unspecified Hospital course: Mr. Sparrow is a 63 year old male - Time Spent with Patient Total time spent providing and/or coordinating discharge services: Less than 30 minutes (10 min) Date of admission: 05/27/18 03:40 Primary care physician: Kalen Hart DO Consults: 05/27/18 00:53 Consult to Oncology [CONS] Routine Consulting Provider: [facility] Reason for Consult: Hx of CLL and papillary thyroid carcinoma - abdominal CT shows massive adenopathy most consistent with lymphoma Time Notified: 00:56 Call Completed: No 05/27/18 11:19 Consult to Interventional Radiology [CONS] Routine Consulting Provider: [facility] Reason for Consult: ct guided lymph node biopsy (most accessible and bone marrow biopsy Call Completed: No 05/27/18 14:09 Consult to Urology [CONS] Routine Consulting Provider: [facility] Reason for Consult: hydronephrosis likely secondary to lymphoma Call Completed: No - Constitutional Vitals: Temp Pulse Resp BP Pulse Ox 98.1 F 48 16 126/65 95 06/01/18 10:40 06/01/18 10:40 06/01/18 10:40 06/01/18 10:40 06/01/18 10:40 General appearance: Present: cooperative, A&O X 3, answers questions appropriately Exam: . - Respiratory Respiratory exam: Present: CTAB. Absent: accessory muscle use, rales, rhonchi, wheezes - Cardiovascular Cardiovascular exam: Present: RRR, +S1, +S2. Absent: diastolic murmur, gallop, rubs, systolic murmur - GI/Abdominal GI/Abdominal exam: Present: normal bowel sounds, soft, no peritoneal signs. Absent: distended, tenderness - Attending Attestation I saw evaluated and examined this patient and my medical decision-making was reviewed with the Resident Physician, Sandra Parson and Medical Student. I agree with the documented findings, disposition and treatment plan as described except to any changes set forth below. We independently had [id number] contact with the patient. 63-year-old male patient with history of CLL who was hospitalized here initially with abdominal pain and scrotal edema. Was found to have enlarged lymph nodes and there was concern for transformation to high-grade lymphoma. As such oncology was consulted. They recommended doing a lymph node and bone marrow biopsies which were completed during his stay here. Patient was also started on high-dose rest corticosteroids to help with his symptoms and seems to have had good response to it with reduction in swelling. We are still waiting for biopsy results and oncology recommends outpatient follow-up for further management. Patient is clinically doing much better and is stable to be discharged on prednisone taper per oncology recommendations. Patient also had bilateral hydronephrosis and urology was consulted who recommended possible ureteral stents which can be done as outpatient. Patient will follow up with them after discharge.
[2018-06-01 17:56] LABS: Alpha 2 Globulin (PEP) 0.73 g/dL (0.48-1.05); Beta Globulin (PEP) 0.55 g/dL (0.48-1.10)
[2018-06-02 07:31] LABS: BCR-ABL1 Specimen Source NOT SPECIFIED
[2018-06-02] MEDS ORDERED: predniSONE 20 MG TABLET PO SCH (09:00)
[2018-06-02 15:46] LABS: IFE Reflexed IFE Done
== END 2018-06-01 15:34 | disposition home or self-care (01) | DRG 824 ==
LOC: 3ANU 18:44 → EMEROOARM 18:44 → 3ANU 23:15 → SUATTDRO 05-27 03:40
PROVIDERS: ADMIT Internal Medicine; ATTEND Internal Medicine
PROC: IRLYMPH (2018-05-29 13:00)